=== PATIENT | female | born 1975 | race Caucasian/White ===

== ENCOUNTER 2017-09-13 18:36 | Emergency (ER) | payer OTHER ==
--- NOTE | 2017-09-13 18:45 | ED ---
Psych HPI - General Chief Complaint: Psychiatric Symptoms Stated Complaint: Mental health Time Seen by Provider: 09/13/17 18:38 Source: patient, EMS, RN notes reviewed Mode of arrival: EMS - History of Present Illness Initial Comments: This is a 42-year-old female who presents to the emergency department with suicide attempt. Patient was transported to the emergency department via EMS. Patient admits to taking 5-6 50 mg tablets of Seroquel at 6 PM this evening. She admits to drinking a half pint of vodka. Patient states that she has been living with her parents. They have a rule that patient is to not drink any alcohol. Patient drank today and they found out. They confronted patient and told her that she needed to move out. Patient became very anxious and angry and attempted to commit suicide. She was found by her father and he called EMS. Patient admits to cutting bilateral forearms with a serrated knife. She does admit to a history of depression and anxiety. Denies any auditory or visual hallucinations. States that she occasionally smokes marijuana. Denies homicidal ideation. - Related Data Home Medications Medication Instructions Recorded Confirmed ARIPiprazole [Abilify] 5 mg PO DAILY 09/13/17 09/13/17 Methylphenidate HCl [Ritalin LA] 30 mg PO DAILY 09/13/17 09/13/17 QUEtiapine [SEROquel] 50 mg PO HS 09/13/17 09/13/17 SUMAtriptan SUCCINATE [Imitrex] 100 mg PO DAILY PRN 09/13/17 09/13/17 Vortioxetine Hydrobromide 20 mg PO DAILY 09/13/17 09/13/17 [Trintellix] hydrOXYzine PAMOATE 50 mg PO HS 09/13/17 09/13/17 Allergies Allergy/AdvReac Type Severity Reaction Status Date / Time No Known Allergies Allergy Verified 09/13/17 19:23 Review of Systems ROS Statement: Those systems with pertinent positive or pertinent negative responses have been documented in the HPI. ROS Other: All systems not noted in ROS Statement are negative. Past Medical History Past Medical History: GERD/Reflux Additional Past Medical History / Comment(s): abdominal pain/blood in stool. migraines History of Any Multi-Drug Resistant Organisms: None Reported Past Surgical History: Cholecystectomy, Orthopedic Surgery Additional Past Surgical History / Comment(s): hand surg., bankart procedure left shoulder. Colonoscopy/EGD completed on 08/30/[address] Randolph secondary to recent blood in stool and bloody emesis x1. Past Anesthesia/Blood Transfusion Reactions: No Reported Reaction Past Psychological History: ADD/ADHD, Depression Smoking Status: Current every day smoker Past Alcohol Use History: Occasional Past Drug Use History: Marijuana - Past Family History Father Family Medical History: Cancer Additional Family Medical History / Comment(s): Esophageal cancer General Exam - General Exam Comments Initial Comments: General: Awake and alert, well-developed; in no apparent distress. HEENT: Head atraumatic, normocephalic. Pupils are equal, round and reactive to light. Extraocular movements intact. Oropharynx moist without erythema or exudate. Neck: Supple. Normal ROM. Cardiovascular: Regular rate and rhythm. No murmurs, rubs or gallops. Chest symmetrical. Respiratory: Lungs clear to auscultation bilaterally. No wheezes, rales or rhonchi. Normal respiratory effort with no use of accessory muscles. Abdomen: Soft, non-tender, non-distended. No rigidity, rebound or guarding. Normal bowel sounds in all 4 quadrants. Musculoskeletal: Normal ROM, no tenderness, drink 5/5 bilateral upper and lower extremities. Ambulating normally. Sensation is intact. Radial pulses are 2+ equal and palpable bilaterally. Skin: [place], warm and dry. Multiple superficial longitudinal lacerations running along bilateral forearms. There is a laceration on the left forearm that becomes deeper in the middle. This deeper area is approximately 4 cm in length. No active bleeding. Neurological: Alert and oriented x3. CN II-XII grossly intact. Speech is fluent and answers are appropriate. No focal neuro deficits. Psychiatric: Patient anxious and tearful. Repeatedly stating, "I can't believe I did this." Limitations: no limitations Course Vital Signs 09/13/17 09/14/17 09/14/17 18:38 03:26 05:49 Temperature 98 F 97.5 F L 97.8 F Pulse Rate 109 H 86 84 Respiratory 18 16 16 Rate Blood Pressure 140/78 95/54 109/57 O2 Sat by Pulse 97 97 98 Oximetry Procedures - Laceration Laceration #1 Consent Obtained: verbal consent Indication: laceration Site: upper extremity (left ventral forearm ) Size (cm): 4 Description: linear Depth: simple, single layer Anesthetic Used: lidocaine 1% Anesthesia Technique: local infiltration Amount (mls): 3 Pre-repair: wound explored, irrigated extensively, deep structures intact Type of Sutures: nylon Size of Sutures: 4-0 Number of Sutures: 6 Technique: simple, interrupted Patient Tolerated Procedure: well, no complications Medical Decision Making - Medical Decision Making This is a 42-year-old female who presents to the emergency department with chief complaint of a suicide attempt. Patient took a half pint of vodka earlier today and admits to taking 5-650 mg tablets of Seroquel. She has self- inflicted superficial lacerations to bilateral forearms. 4 Steri-Strips were placed to lacerations on the right forearm. 6 sutures and 6 Steri-Strips were placed to the lacerations on the left forearm. Patient tolerated procedure well without complication. Poison control was contacted and they recommended basic labs as well as checking a magnesium and repeat EKG. CBC and CMP are unremarkable. Magnesium is within normal limits. Initial EKG revealed normal sinus rhythm. Repeat EKG revealed normal sinus rhythm with sinus arrhythmia. Patient's vital signs have been stable and she is in no acute distress. Pending transfer to a psychiatric facility at this time. - Lab Data Result diagrams: 09/13/17 18:54 09/13/17 18:54 Lab Results 09/13/17 09/13/17 09/13/17 Range/Units 18:54 18:54 18:54 WBC 3.8 (3.8-10.6) k/uL RBC 4.70 (3.80-5.40) m/uL Hgb 13.7 (11.4-16.0) gm/dL Hct 40.9 (34.0-46.0) % MCV 87.0 (80.0-100.0) fL MCH 29.2 (25.0-35.0) pg MCHC 33.6 (31.0-37.0) g/dL RDW 13.3 (11.5-15.5) % Plt Count 266 (150-450) k/uL Neutrophils % 42 % Lymphocytes % 42 % Monocytes % 7 % Eosinophils % 5 % Basophils % 1 % Neutrophils # 1.6 (1.3-7.7) k/uL Lymphocytes # 1.6 (1.0-4.8) k/uL Monocytes # 0.3 (0-1.0) k/uL Eosinophils # 0.2 (0-0.7) k/uL Basophils # 0.1 (0-0.2) k/uL Sodium 147 H (137-145) mmol/L Potassium 4.4 (3.5-5.1) mmol/L Chloride 110 H (98-107) mmol/L Carbon Dioxide 20 L (22-30) mmol/L Anion Gap 17 mmol/L BUN 17 (7-17) mg/dL Creatinine 0.80 (0.52-1.04) mg/dL Est GFR (CKD-EPI)AfAm >90 (>60 ml/min/1.73 sqM) Est GFR (CKD-EPI)NonAf >90 (>60 ml/min/1.73 sqM) Glucose 102 H (74-99) mg/dL Calcium 9.0 (8.4-10.2) mg/dL Magnesium 1.7 (1.6-2.3) mg/dL Total Bilirubin 0.2 (0.2-1.3) mg/dL AST 25 (14-36) U/L ALT 31 (9-52) U/L Alkaline Phosphatase 52 (38-126) U/L Total Protein 7.1 (6.3-8.2) g/dL Albumin 4.5 (3.5-5.0) g/dL Urine Color Urine Appearance (Clear) Urine pH (5.0-8.0) Ur Specific Sandy (1.001-1.035) Urine Protein (Negative) Urine Glucose (UA) (Negative) Urine Ketones (Negative) Urine Blood (Negative) Urine Nitrite (Negative) Urine Bilirubin (Negative) Urine Urobilinogen (<2.0) mg/dL Ur Leukocyte Esterase (Negative) Urine RBC (0-5) /hpf Ur Squamous Epith Cells (0-4) /hpf Urine HCG, Qual (Not Detectd) Salicylates <1.0 mg/dL Urine Opiates Screen (NotDetected) Ur Oxycodone Screen (NotDetected) Urine Methadone Screen (NotDetected) Ur Propoxyphene Screen (NotDetected) Acetaminophen <10.0 ug/mL Ur Barbiturates Screen (NotDetected) U Tricyclic Antidepress (NotDetected) Ur Phencyclidine Scrn (NotDetected) Ur Amphetamines Screen (NotDetected) U Methamphetamines Scrn (NotDetected) U Benzodiazepines Scrn (NotDetected) Urine Cocaine Screen (NotDetected) U Marijuana (THC) Screen (NotDetected) 09/13/17 09/13/17 Range/Units 19:54 19:54 WBC (3.8-10.6) k/uL RBC (3.80-5.40) m/uL Hgb (11.4-16.0) gm/dL Hct (34.0-46.0) % MCV (80.0-100.0) fL MCH (25.0-35.0) pg MCHC (31.0-37.0) g/dL RDW (11.5-15.5) % Plt Count (150-450) k/uL Neutrophils % % Lymphocytes % % Monocytes % % Eosinophils % % Basophils % % Neutrophils # (1.3-7.7) k/uL Lymphocytes # (1.0-4.8) k/uL Monocytes # (0-1.0) k/uL Eosinophils # (0-0.7) k/uL Basophils # (0-0.2) k/uL Sodium (137-145) mmol/L Potassium (3.5-5.1) mmol/L Chloride (98-107) mmol/L Carbon Dioxide (22-30) mmol/L Anion Gap mmol/L BUN (7-17) mg/dL Creatinine (0.52-1.04) mg/dL Est GFR (CKD-EPI)AfAm (>60 ml/min/1.73 sqM) Est GFR (CKD-EPI)NonAf (>60 ml/min/1.73 sqM) Glucose (74-99) mg/dL Calcium (8.4-10.2) mg/dL Magnesium (1.6-2.3) mg/dL Total Bilirubin (0.2-1.3) mg/dL AST (14-36) U/L ALT (9-52) U/L Alkaline Phosphatase (38-126) U/L Total Protein (6.3-8.2) g/dL Albumin (3.5-5.0) g/dL Urine Color Light Yellow Urine Appearance Clear (Clear) Urine pH 5.5 (5.0-8.0) Ur Specific [place] 1.012 (1.001-1.035) Urine Protein Negative (Negative) Urine Glucose (UA) Negative (Negative) Urine Ketones Negative (Negative) Urine Blood Trace H (Negative) Urine Nitrite Negative (Negative) Urine Bilirubin Negative (Negative) Urine Urobilinogen <2.0 (<2.0) mg/dL Ur Leukocyte Esterase Negative (Negative) Urine RBC 4 (0-5) /hpf Ur Squamous Epith Cells 1 (0-4) /hpf Urine HCG, Qual Not Detected (Not Detectd) Salicylates mg/dL Urine Opiates Screen Not Detected (NotDetected) Ur Oxycodone Screen Not Detected (NotDetected) Urine Methadone Screen Not Detected (NotDetected) Ur Propoxyphene Screen Not Detected (NotDetected) Acetaminophen ug/mL Ur Barbiturates Screen Not Detected (NotDetected) U Tricyclic Antidepress Detected H (NotDetected) Ur Phencyclidine Scrn Not Detected (NotDetected) Ur Amphetamines Screen Not Detected (NotDetected) U Methamphetamines Scrn Not Detected (NotDetected) U Benzodiazepines Scrn Not Detected (NotDetected) Urine Cocaine Screen Not Detected (NotDetected) U Marijuana (THC) Screen Detected H (NotDetected) - EKG Data EKG Comments: 18:49:35. Sinus tachycardia, possible left atrial enlargement. Ventricular rate 101 bpm, OR interval 144, QRS duration 88, QT/QTC 354/459 22:59:30. Normal sinus rhythm with sinus arrhythmia. Ventricular rate 83 bpm, OR interval 132, QRS duration 90, QT/QTC 384/451. Disposition Clinical Impression: Attempted suicide Disposition: TRANSFER TO PSYCH HOSP/UNIT Condition: Stable Is patient prescribed a controlled substance at d/c from ED?: No Referrals: Daniel Graham MD [Primary Care Provider] - 1-2 days - Out of Hospital Transfer - Req. Specs Out of Hospital Transfer - Requested Specifics: Psychiatric Non-ICU
[2017-09-13] MEDS ORDERED: LIDOCAINE 1% INJ 10MG/ML (20 ML MDV) SQ ONE ×2 (19:02→19:07)
[2017-09-13 19:06] LABS: Basophils # (A) 0.1 k/uL (0-0.2); Basophils % (A) 1 %; Eosinophils # (A) 0.2 k/uL (0-0.7); Eosinophils % (A) 5 %; HCT 40.9 % (34.0-46.0); HGB 13.7 gm/dL (11.4-16.0); Lymphocytes # (A) 1.6 k/uL (1.0-4.8); Lymphocytes % (A) 42 %; MCH 29.2 pg (25.0-35.0); MCHC 33.6 g/dL (31.0-37.0); Mean Platelet Volume 6.3; Monocytes # (A) 0.3 k/uL (0-1.0); Monocytes % (A) 7 %; Neutrophils # (A) 1.6 k/uL (1.3-7.7); Neutrophils % (A) 42 %; Platelet Count 266 k/uL (150-450); RDW 13.3 % (11.5-15.5); WBC 3.8 k/uL (3.8-10.6)
[2017-09-13 19:14] LABS: ALT 31 U/L (9-52); AST 25 U/L (14-36); Acetaminophen <10.0 ug/mL; Albumin 4.5 g/dL (3.5-5.0); Alkaline Phosphatase 52 U/L (38-126); Anion Gap 17 mmol/L; Blood Urea Nitrogen 17 mg/dL (7-17); Carbon Dioxide 20 mmol/L (22-30); Chloride 110 mmol/L (98-107); Glucose 102 mg/dL (74-99); Potassium 4.4 mmol/L (3.5-5.1); Salicylate <1.0 mg/dL; Sodium 147 mmol/L (137-145); Total Bilirubin 0.2 mg/dL (0.2-1.3); Total Protein 7.1 g/dL (6.3-8.2)
[2017-09-13] MEDS ORDERED: IBUPROFEN 600 MG TAB PO STA (20:00)
[2017-09-13 20:11] LABS: Appearance,Urine Clear (Clear); Bilirubin,Urine Negative (Negative); Blood,Urine Trace (Negative); Color,Urine Light Yellow; Glucose,Urine (UA) Negative (Negative); Ketones,Urine Negative (Negative); Leukocyte Esterase,Urine Negative (Negative); Nitrite,Urine Negative (Negative); PH, Urine 5.5 (5.0-8.0); Protein,Urine Negative (Negative); RBC,Urine 4 /hpf (0-5); Specific Gravity,Urine 1.012 (1.001-1.035); Squamous Epithelial Cell,Urine 1 /hpf (0-4); Urobilinogen,Urine <2.0 mg/dL (<2.0)
[2017-09-13 20:23] LABS: Amphetamine Screen,Urine Not Detected (NotDetected); Barbiturate Screen,Urine Not Detected (NotDetected); Benzodiazepines Screen,Urine Not Detected (NotDetected); Cocaine Screen,Urine Not Detected (NotDetected); Methadone Screen, Urine Not Detected (NotDetected); Opiate Screen,Urine Not Detected (NotDetected); Oxycodone Screen, Urine Not Detected (NotDetected); Phencyclidine Screen,Urine Not Detected (NotDetected); Tricyclic Antidepressant,Urine Detected (NotDetected); Urn Cannabinoid Scrn Detected (NotDetected)
[2017-09-14 03:26] VITALS: RESP 16
[2017-09-14 05:50] VITALS: BP 109/57; PULSE 84; TEMP 97.8
== END 2017-09-14 06:33 ==
LOC: EC 18:36
DX: S51.812A Laceration without foreign body of left forearm, initial encounter (principal); S51.811A Laceration without foreign body of right forearm, initial encounter; F41.9 Anxiety disorder, unspecified; R45.4 Irritability and anger; F90.9 Attention-deficit hyperactivity disorder, unspecified type; F32.9 Major depressive disorder, single episode, unspecified; F17.200 Nicotine dependence, unspecified, uncomplicated; Z79.899 Other long term (current) drug therapy; X78.1XXA Intentional self-harm by knife, initial encounter
CPT/HCPCS: 82075; 36415; 93005; 80053; 83735; 85025; 81001; 81025; 80306; 83520 ×2; 99285; 12002; J2001

== ENCOUNTER → 2018-02-18 | Outpatient (CLI) | payer OTHER ==
[2018-02-18 11:09] LABS: Basophils % (A) 1 %; Eosinophils # (A) 0.1 k/uL (0-0.7); Eosinophils % (A) 2 %; HCT 43.4 % (34.0-46.0); HGB 14.5 gm/dL (11.4-16.0); Lymphocytes % (A) 27 %; MCH 30.4 pg (25.0-35.0); MCHC 33.3 g/dL (31.0-37.0); MCV 91.1 fL (80.0-100.0); Mean Platelet Volume 6.4; Monocytes # (A) 0.4 k/uL (0-1.0); Monocytes % (A) 11 %; Neutrophils % (A) 55 %; Platelet Count 219 k/uL (150-450); RBC 4.77 m/uL (3.80-5.40); WBC 3.5 k/uL (3.8-10.6)
[2018-02-18 16:37] LABS: Albumin 4.8 g/dL (3.80-4.90); Albumin/Globulin Ratio 2.18 (1.20-2.10); Anion Gap 12.5 mmol/L (4.00-12.00); Calcium 9.2 mg/dL (8.7-10.3); Carbon Dioxide 20.5 mmol/L (21.6-31.8); Globulin 2.2 g/dL (2.1-3.7); Potassium 3.8 mmol/L (3.5-5.5); Total Bilirubin 0.5 mg/dL (0.2-1.2)
[2018-02-18 16:47] LABS: T4, Free (Free Thyroxine) 1.3 ng/dL (0.80-1.80)
== END | disposition home or self-care (01) ==
LOC: LABWHC1 10:15
PROVIDERS: ATTEND Family Medicine
DX: G43.909 Migraine, unspecified, not intractable, without status migrainosus (principal); K85.90 Acute pancreatitis without necrosis or infection, unspecified; Z79.899 Other long term (current) drug therapy
CPT/HCPCS: 36415; 80053; 82150; 83690; 84439; 84443; 85025

== ENCOUNTER 2018-04-02 10:26 | Emergency (ER) | payer OTHER ==
[2018-04-02] MEDS ORDERED: SODIUM CHLORIDE 0.9% 1,000 ML IV STA (11:17)
[2018-04-02] MEDS ORDERED: diphenhydrAMINE 50 MG/ML 1 ML VIAL IVP STA (11:17)
[2018-04-02 11:34] LABS: Basophils % (A) 1 %; Eosinophils # (A) 0.1 k/uL (0-0.7); Eosinophils % (A) 1 %; HCT 43.8 % (34.0-46.0); HGB 14.6 gm/dL (11.4-16.0); Lymphocytes # (A) 0.5 k/uL (1.0-4.8); Lymphocytes % (A) 12 %; MCH 30.7 pg (25.0-35.0); MCHC 33.3 g/dL (31.0-37.0); Mean Platelet Volume 6.4; Monocytes # (A) 0.4 k/uL (0-1.0); Monocytes % (A) 8 %; Neutrophils # (A) 3.3 k/uL (1.3-7.7); Neutrophils % (A) 76 %; Platelet Count 255 k/uL (150-450); RBC 4.76 m/uL (3.80-5.40); RDW 13.6 % (11.5-15.5); WBC 4.4 k/uL (3.8-10.6)
[2018-04-02 11:44] LABS: ALT 36 U/L (9-52); AST 33 U/L (14-36); Albumin 4.5 g/dL (3.5-5.0); Alkaline Phosphatase 62 U/L (38-126); Anion Gap 13 mmol/L; Blood Urea Nitrogen 13 mg/dL (7-17); Calcium 9.3 mg/dL (8.4-10.2); Carbon Dioxide 20 mmol/L (22-30); Chloride 106 mmol/L (98-107); Glucose 82 mg/dL (74-99); Magnesium 1.7 mg/dL (1.6-2.3); Phosphorus 3.6 mg/dL (2.5-4.5); Potassium 3.8 mmol/L (3.5-5.1); Sodium 139 mmol/L (137-145); Total Bilirubin 0.8 mg/dL (0.2-1.3); Total Protein 7.7 g/dL (6.3-8.2)
[2018-04-02 11:46] LABS: Appearance,Urine Cloudy (Clear); Bacteria,Urine Rare /hpf; Bilirubin,Urine Negative (Negative); Blood,Urine Small (Negative); Color,Urine Yellow; Glucose,Urine (UA) Negative (Negative); Ketones,Urine 1+ (Negative); Leukocyte Esterase,Urine Trace (Negative); Mucus,Urine Rare /hpf; Nitrite,Urine Negative (Negative); PH, Urine 5.5 (5.0-8.0); Protein,Urine Trace (Negative); RBC,Urine 3 /hpf (0-5); Specific Gravity,Urine 1.015 (1.001-1.035); Squamous Epithelial Cell,Urine 9 /hpf (0-4); Urobilinogen,Urine <2.0 mg/dL (<2.0); WBC,Urine 9 /hpf (0-5)
[2018-04-02 11:52] LABS: Creatine Kinase 42 U/L (30-135)
[2018-04-02 12:05] LABS: Creatine Kinase MB 0.3 ng/mL (0.0-2.4); Troponin I <0.012 ng/mL (0.000-0.034)
--- NOTE | 2018-04-02 12:11 | XR ---
EXAMINATION TYPE: XR chest 2V DATE OF EXAM: 04/02/2018 COMPARISON: 12/21/2008 INDICATION: Weakness chest pain short of breath TECHNIQUE: Frontal and lateral views of the chest are obtained. FINDINGS: The heart size is normal. The pulmonary vasculature is normal. The lungs are clear. IMPRESSION: 1. No acute pulmonary process.
--- NOTE | 2018-04-02 12:23 | ED ---
Chest Pain HPI - General Chief Complaint: Chest Pain Stated Complaint: Chest pain/tips of fingers are numb Time Seen by Provider: 04/02/18 10:57 Source: patient, RN notes reviewed, old records reviewed Mode of arrival: ambulatory Limitations: no limitations - History of Present Illness Initial Comments: This is a 42-year-old female the ER for evaluation. Patient resents today for evaluation regards to chest pain but patient states her main complaint is spasming spasm in her face and neck, patient states he usually has some twinging in tremor in her legs and feet but just started recently with twitching of her neck which is at this point driving her crazy when she just wants to be consistent 2 views currently shaking. Patient is on antidepressant Trintililx which she has been on for years. Patient has no cardiac history - Related Data Home Medications Medication Instructions Recorded Confirmed SUMAtriptan SUCCINATE [Imitrex] 100 mg PO DAILY PRN 09/13/17 04/02/18 Vortioxetine Hydrobromide 20 mg PO DAILY 09/13/17 04/02/18 [Trintellix] Ibuprofen [Motrin Ib] 600 mg PO Q6H PRN 04/02/18 04/02/18 Allergies Allergy/AdvReac Type Severity Reaction Status Date / Time No Known Allergies Allergy Verified 04/02/18 12:22 Review of Systems ROS Statement: Those systems with pertinent positive or pertinent negative responses have been documented in the HPI. ROS Other: All systems not noted in ROS Statement are negative. Past Medical History Past Medical History: GERD/Reflux Additional Past Medical History / Comment(s): abdominal pain/blood in stool. migraines History of Any Multi-Drug Resistant Organisms: None Reported Past Surgical History: Cholecystectomy, Orthopedic Surgery Additional Past Surgical History / Comment(s): hand surg., bankart procedure left shoulder. Colonoscopy/EGD completed on 08/30/[address] Randolph secondary to recent blood in stool and bloody emesis x1. Past Anesthesia/Blood Transfusion Reactions: No Reported Reaction Past Psychological History: ADD/ADHD, Depression Smoking Status: Current every day smoker Past Alcohol Use History: Occasional Past Drug Use History: Marijuana - Past Family History Father Family Medical History: Cancer Additional Family Medical History / Comment(s): Esophageal cancer General Exam Limitations: no limitations General appearance: alert, in no apparent distress Head exam: Present: atraumatic, normocephalic, normal inspection Eye exam: Present: normal appearance, PERRL, EOMI. Absent: scleral icterus, conjunctival injection, periorbital swelling ENT exam: Present: normal exam, mucous membranes moist Neck exam: Present: normal inspection. Absent: tenderness, meningismus, lymphadenopathy Respiratory exam: Present: normal lung sounds bilaterally. Absent: respiratory distress, wheezes, rales, rhonchi, stridor Cardiovascular Exam: Present: regular rate, normal rhythm, normal heart sounds. Absent: systolic murmur, diastolic murmur, rubs, gallop, clicks GI/Abdominal exam: Present: soft, normal bowel sounds. Absent: distended, tenderness, guarding, rebound, rigid Extremities exam: Present: normal inspection, full ROM, normal capillary refill. Absent: tenderness, pedal edema, joint swelling, calf tenderness Back exam: Present: normal inspection Neurological exam: Present: alert, oriented X3, CN II-XII intact Psychiatric exam: Present: normal affect, normal mood Skin exam: Present: warm, dry, intact, normal color. Absent: rash Course Vital Signs 04/02/18 04/02/18 04/02/18 10:34 10:51 11:00 Temperature 98.0 F Pulse Rate 103 H 80 Respiratory 20 12 Rate Blood Pressure 144/84 145/85 O2 Sat by Pulse 100 97 98 Oximetry 04/02/18 04/02/18 04/02/18 11:10 11:20 11:30 Temperature Pulse Rate 84 82 73 Respiratory 20 20 19 Rate Blood Pressure 145/85 145/85 136/86 O2 Sat by Pulse 97 100 99 Oximetry 04/02/18 04/02/18 04/02/18 11:40 11:50 12:00 Temperature Pulse Rate 84 75 72 Respiratory 19 18 18 Rate Blood Pressure 138/87 138/87 138/87 O2 Sat by Pulse 99 100 98 Oximetry 04/02/18 04/02/18 04/02/18 12:10 12:20 12:30 Temperature Pulse Rate 75 77 84 Respiratory 13 7 L 12 Rate Blood Pressure O2 Sat by Pulse 100 99 100 Oximetry 04/02/18 12:40 Temperature Pulse Rate 85 Respiratory 12 Rate Blood Pressure 135/92 O2 Sat by Pulse 100 Oximetry - Reevaluation(s) Reevaluation #1: 04/02/18 12:23 Medical record is reviewed and noncontributory Reevaluation #2: 04/02/18 13:12 Patient does have improvement in symptoms currently, did spit 2002 with patient regarding symptoms possible causes, questions are answered Chest Pain MDM - MDM 42 female the ER for evaluation of involuntary shaking Haitian and twinging, tremor or lower extremities. Patient did improve here with Benadryl, unsure of his medication side effect from contacts patient's electrodes otherwise negative. Patient has no current chest pain, we will discharge home to continue follow-up with family care as directed Disposition Clinical Impression: Atypical chest pain, Muscle spasm Disposition: HOME SELF-CARE Condition: Good Instructions: Muscle Spasm (ED) Is patient prescribed a controlled substance at d/c from ED?: No Referrals: Daniel Graham MD [Primary Care Provider] - 1-2 days
[2018-04-02 13:48] VITALS: BP 132/86; PULSE 86; RESP 18; TEMP 97.4
== END 2018-04-02 13:48 | disposition home or self-care (01) ==
LOC: EC 10:26
DX: M62.838 Other muscle spasm (principal); R07.89 Other chest pain; R25.1 Tremor, unspecified; F32.9 Major depressive disorder, single episode, unspecified; F17.200 Nicotine dependence, unspecified, uncomplicated; Z79.899 Other long term (current) drug therapy
CPT/HCPCS: 36415; 93005; 80053; 82550; 82553; 83735; 84100; 84484; 85025; 81001; 87086; 71046; 99285; 96374; 96361 ×2; J1200; 87077; 87186

== ENCOUNTER → 2018-08-03 | Outpatient (CLI) | payer OTHER ==
--- NOTE | 2018-08-03 08:29 | MR ---
EXAMINATION TYPE: MR brain/cspine wo DATE OF EXAM: 08/03/2018 COMPARISON: MRI of the cervical spine dated 11/21/2015 HISTORY: Tremor, Cervical spondylosis TECHNIQUE: Multiplanar, multisequence images of the brain and cervical spine were acquired without intravenous c ontrast. Diffusion weighted imaging was performed. Motion artifact is seen on the images as the may ent has known tremors. FINDINGS: Brain: Diffusion weighted images demonstrate no evidence of a recent infarct or other diffusion abnor mality. There is no extra-axial fluid collection or significant white matter signal abnormality othe r than very subtle periventricular white matter change surrounding the left temporal horn of the late ral ventricle. The ventricular system and cisternal spaces are normal in size and appearance. The b rain volume is age appropriate. There is an incidentally noted 9 mm pineal gland cyst abutting without significant impression on the superior tectum. Cerebral aqueduct is patent. Otherwise the midline structures demonstrate normal mor phology. No absent swallow tail sign is seen to suggest supranuclear palsy. In this patient with trem ors evaluation of the absent swallow tail sign is difficult to evaluate without SWI images. The crani ocervical junction appears within normal limits. The left vertebral artery is diminutive with dominan ce of the right vertebral artery. Major intracranial flow voids are maintained. The dural venous sinu ses appear patent. There is a congenitally diminutive right maxillary sinus with complete opacificati on. Scant mucosal thickening is seen within the ethmoid sinuses. Remaining paranasal sinuses and mast oid air cells are well aerated. Cervical spine: Cervical spine vertebral bodies maintain normal vertebral body height and alignment. Small Schmorl's node deformity is seen of the superior endplate of C7. Multilevel disc desiccation is present. Cervical cord appears unremarkable in signal. Bone marrow signal is within normal limits. H eterogeneity with a few subcentimeter hyperintense thyroid nodules again appreciated. C2-C3: There is uncovertebral hypertrophy that creates mild bilateral neural foraminal narrowing with out spinal canal stenosis. C3-C4: There is a right eccentric disc bulge and minimal uncovertebral hypertrophy without significan t spinal canal stenosis nor neural foraminal narrowing. C4-C5: There is minimal uncovertebral hypertrophy without significant spinal canal stenosis or neural foraminal narrowing. C5-C6: There is mild uncovertebral hypertrophy creating minimal left neural foraminal narrowing. Righ t neural foramen and spinal canal patent. Broad-based disc bulges also seen. C6-C7: Small broad-based disc bulge is present without spinal canal stenosis nor neural foraminal jen rowing. C7-T1: No significant disc disease, spinal canal stenosis nor neural foraminal narrowing. IMPRESSION: 1. Very minimal nonspecific periventricular white matter change surrounding the left temporal horn, w hich is nondilated. 2. In this patient with tremors evaluation for Parkinson's disease is limited without SWI sequence to evaluate for the absent swallow tail sign. If there is concern for Parkinson's disease Carlin scan coul d be performed. No MR evidence of supranuclear palsy (although tremors rare in PSP). 3. Mild multilevel degenerative disc disease of the cervical spine without focal disc herniation or s sofi canal stenosis. Degenerative disc disease has slightly progressed from the prior exam in 2016. 4. Hypoplastic and entirely opacified right maxillary sinus and scant mucosal thickening in the ethmo id sinuses. 5. Incidentally noted 9 mm pineal gland cyst without narrowing of the cerebral aqueduct.
== END | disposition home or self-care (01) ==
LOC: RADMRIMAIN 06:13
PROVIDERS: ATTEND Neurological Surgery
DX: M50.10 Cervical disc disorder with radiculopathy, unspecified cervical region (principal); R90.89 Other abnormal findings on diagnostic imaging of central nervous system; R25.1 Tremor, unspecified
CPT/HCPCS: 70551; 72141

== ENCOUNTER 2018-09-06 07:22 | Observation (INO) | payer OTHER ==
[2018-09-06] MEDS ORDERED: SODIUM CHLORIDE 0.9% 2,000 ML IV STA (07:49)
[2018-09-06] MEDS ORDERED: ONDANSETRON 4 MG/2 ML VIAL IVP STA (07:49)
[2018-09-06] MEDS: SODIUM CHLORIDE 0.9% 1,000 ML IV STA ×2 (07:57→13:11)
--- NOTE | 2018-09-06 07:58 | ED ---
Nausea/Vomiting/Diarrhea HPI <Kobe Frye - Last Filed: 09/06/18 10:38> - General Source: patient, RN notes reviewed, old records reviewed Mode of arrival: ambulatory Limitations: no limitations <Emily Wolf - Last Filed: 09/06/18 10:46> - General Chief complaint: Nausea/Vomiting/Diarrhea Stated complaint: nausea, vomiting Time Seen by Provider: 09/06/18 07:46 - History of Present Illness Initial comments: Patient is a 43-year-old female presents today with complaints of nausea and vomiting since last Wednesday. Patient reports that she does feel sternal last week. She states that her abdomen feels crampy. She denies any localized area of abdominal pain. She did have a small bowel movement a few days ago. Patient states that she's had a symptoms once before when she has ketosis. Surgical history includes cholecystectomy. (Emily Wolf) - Related Data Home Medications Medication Instructions Recorded Confirmed Vortioxetine Hydrobromide 20 mg PO DAILY 09/13/17 09/06/18 [Trintellix] Methylphenidate HCl 30 mg PO DAILY 09/06/18 09/06/18 [Methylphenidate HCl LA] Allergies Allergy/AdvReac Type Severity Reaction Status Date / Time No Known Allergies Allergy Verified 09/06/18 07:40 Review of Systems ROS Other: All systems not noted in ROS Statement are negative. <Kobe Frye - Last Filed: 09/06/18 10:38> ROS Other: All systems not noted in ROS Statement are negative. <Emily Wolf - Last Filed: 09/06/18 10:46> ROS Statement: Those systems with pertinent positive or pertinent negative responses have been documented in the HPI. Past Medical History Past Medical History: GERD/Reflux Additional Past Medical History / Comment(s): migraines History of Any Multi-Drug Resistant Organisms: None Reported Past Surgical History: Cholecystectomy, Orthopedic Surgery Additional Past Surgical History / Comment(s): hand surg., bankart procedure left shoulder, left ulnar nerve surgery Past Anesthesia/Blood Transfusion Reactions: No Reported Reaction Past Psychological History: ADD/ADHD, Depression Smoking Status: Current every day smoker Past Alcohol Use History: Occasional Past Drug Use History: Marijuana - Past Family History Father Family Medical History: Cancer Additional Family Medical History / Comment(s): Esophageal cancer <Emily Wolf - Last Filed: 09/06/18 10:46> General Exam Limitations: no limitations General appearance: alert, in no apparent distress Head exam: Present: atraumatic, normocephalic, normal inspection Eye exam: Present: normal appearance, PERRL, EOMI. Absent: scleral icterus, conjunctival injection, periorbital swelling ENT exam: Present: normal exam, mucous membranes moist Neck exam: Present: normal inspection. Absent: tenderness, meningismus, lymphadenopathy Respiratory exam: Present: normal lung sounds bilaterally. Absent: respiratory distress, wheezes, rales, rhonchi, stridor Cardiovascular Exam: Present: regular rate, normal rhythm, normal heart sounds. Absent: systolic murmur, diastolic murmur, rubs, gallop, clicks GI/Abdominal exam: Present: soft, normal bowel sounds. Absent: distended, tenderness, guarding, rebound, rigid Extremities exam: Present: normal inspection, full ROM, normal capillary refill. Absent: tenderness, pedal edema, joint swelling, calf tenderness Back exam: Present: normal inspection Neurological exam: Present: alert, oriented X3, CN II-XII intact Psychiatric exam: Present: normal affect, normal mood Skin exam: Present: warm, dry, intact, normal color. Absent: rash <Emily Wolf - Last Filed: 09/06/18 10:46> - General Exam Comments Initial Comments: Pleasant 43-year-old female. Alert and oriented 3. No significant distress. (Emily Wolf) Course Vital Signs 09/06/18 09/06/18 09/06/18 07:26 08:40 09:34 Temperature 97.0 F L Pulse Rate 115 H 84 92 Respiratory 18 18 Rate Blood Pressure 142/95 139/84 148/87 O2 Sat by Pulse 97 98 100 Oximetry Medical Decision Making - Lab Data Result diagrams: 09/06/18 07:50 09/06/18 07:50 <Kobe Frye - Last Filed: 09/06/18 10:38> - Lab Data Result diagrams: 09/06/18 07:50 09/06/18 07:50 - Radiology Data Radiology results: report reviewed <Emily Wolf - Last Filed: 09/06/18 10:46> - Medical Decision Making Chart reviewed. Case was discussed with Dr. Graham who will admit his patient for observation. Case was also discussed with practitioner Maryann. Reports reviewed. (Kobe Frye) Patient is a 43-year-old female presents emergency room today with one week of nausea and vomiting. She's had a bowel movement a few days ago. Patient states she was showing feels weak and tired. Blood work was reviewed. The Patient was started on 2 L bolus. She has no significant abdominal tenderness. Patient does have hypokalemia, potassium 2.8. She is given oral 40 mg of K-Dur and tolerated this could still continues to complain of some nausea. She's had no further vomiting episode. She was given 1 dose of IV potassium. Patient's acetone was positive concern for metabolic acidosis related to his nausea and vomiting. Patient's case with Dr. Frye from discussed case with Dr. Graham. Patient was admitted for observation for IV hydration and hypokalemia. All questions answered return parameters were discussed. (Emily Wolf) - Lab Data Lab Results 09/06/18 09/06/18 09/06/18 Range/Units 07:50 07:50 09:34 WBC 5.5 (3.8-10.6) k/uL RBC 5.33 (3.80-5.40) m/uL Hgb 15.5 (11.4-16.0) gm/dL Hct 45.5 (34.0-46.0) % MCV 85.4 (80.0-100.0) fL MCH 29.2 (25.0-35.0) pg MCHC 34.2 (31.0-37.0) g/dL RDW 15.2 (11.5-15.5) % Plt Count 312 (150-450) k/uL Neutrophils % 65 % Lymphocytes % 22 % Monocytes % 7 % Eosinophils % 3 % Basophils % 1 % Neutrophils # 3.5 (1.3-7.7) k/uL Lymphocytes # 1.2 (1.0-4.8) k/uL Monocytes # 0.4 (0-1.0) k/uL Eosinophils # 0.2 (0-0.7) k/uL Basophils # 0.0 (0-0.2) k/uL Sodium 136 L (137-145) mmol/L Potassium 2.8 L (3.5-5.1) mmol/L Chloride 100 (98-107) mmol/L Carbon Dioxide 17 L (22-30) mmol/L Anion Gap 19 mmol/L BUN 16 (7-17) mg/dL Creatinine 0.90 (0.52-1.04) mg/dL Est GFR (CKD-EPI)AfAm 90 (>60 ml/min/1.73 sqM) Est GFR (CKD-EPI)NonAf 78 (>60 ml/min/1.73 sqM) Glucose 173 H (74-99) mg/dL Calcium 10.5 H (8.4-10.2) mg/dL Total Bilirubin 2.1 H (0.2-1.3) mg/dL AST 38 H (14-36) U/L ALT 31 (9-52) U/L Alkaline Phosphatase 76 (38-126) U/L Total Protein 8.7 H (6.3-8.2) g/dL Albumin 5.3 H (3.5-5.0) g/dL Amylase 66 (30-110) U/L Lipase 219 (23-300) U/L Urine Color Light Yellow Urine Appearance Clear (Clear) Urine pH 6.0 (5.0-8.0) Ur Specific [place] 1.006 (1.001-1.035) Urine Protein Trace H (Negative) Urine Glucose (UA) Negative (Negative) Urine Ketones 1+ H (Negative) Urine Blood Trace H (Negative) Urine Nitrite Negative (Negative) Urine Bilirubin Negative (Negative) Urine Urobilinogen <2.0 (<2.0) mg/dL Ur Leukocyte Esterase Negative (Negative) Urine RBC 1 (0-5) /hpf Urine WBC <1 (0-5) /hpf Ur Squamous Epith Cells <1 (0-4) /hpf Urine Bacteria Rare H (None) /hpf Urine Mucus Rare H (None) /hpf Acetone, Qual Positive (Negative) - Radiology Data Nonobstructive bowel gas pattern noted. (Emily Wolf) Disposition <Kobe Frye - Last Filed: 09/06/18 10:38> Is patient prescribed a controlled substance at d/c from ED?: No Time of Disposition: 10:46 <Emily Wolf - Last Filed: 09/06/18 10:46> Clinical Impression: Dehydration, Nausea & vomiting, Metabolic acidosis, Hypokalemia Disposition: ADMITTED IP TO THIS HOSP Condition: Stable Referrals: Daniel Graham MD [Primary Care Provider] - 1-2 days
[2018-09-06 08:09] LABS: Basophils % (A) 1 %; Eosinophils # (A) 0.2 k/uL (0-0.7); Eosinophils % (A) 3 %; HCT 45.5 % (34.0-46.0); HGB 15.5 gm/dL (11.4-16.0); Lymphocytes # (A) 1.2 k/uL (1.0-4.8); Lymphocytes % (A) 22 %; MCH 29.2 pg (25.0-35.0); MCHC 34.2 g/dL (31.0-37.0); MCV 85.4 fL (80.0-100.0); Mean Platelet Volume 6.9; Monocytes # (A) 0.4 k/uL (0-1.0); Monocytes % (A) 7 %; Neutrophils # (A) 3.5 k/uL (1.3-7.7); Neutrophils % (A) 65 %; Platelet Count 312 k/uL (150-450); RBC 5.33 m/uL (3.80-5.40); RDW 15.2 % (11.5-15.5); WBC 5.5 k/uL (3.8-10.6)
--- NOTE | 2018-09-06 08:20 | XR ---
EXAMINATION TYPE: XR KUB DATE OF EXAM: 09/06/2018 8:11 AM CLINICAL HISTORY: Abdominal pain TECHNIQUE: Single upright image of the abdomen is obtained. COMPARISON: 01/07/2016. FINDINGS: Scattered gas is seen in non-distended small bowel loops. Gas and fecal material is seen in non-distended colon. There is no pneumoperitoneum or abnormal calcification appreciated. The lung ba ses are clear and the osseous structures are intact. Spina bifida/congenital nonunion of the posterio r elements of L5 and likely of S1 are again noted IMPRESSION: Nonobstructive bowel gas pattern.
[2018-09-06 08:23] LABS: ALT 31 U/L (9-52); AST 38 U/L (14-36); African American GFR (CKD) 90 (>60 ml/min/1.73 sqM); Albumin 5.3 g/dL (3.5-5.0); Alkaline Phosphatase 76 U/L (38-126); Amylase 66 U/L (30-110); Anion Gap 19 mmol/L; Blood Urea Nitrogen 16 mg/dL (7-17); Calcium 10.5 mg/dL (8.4-10.2); Carbon Dioxide 17 mmol/L (22-30); Chloride 100 mmol/L (98-107); Glucose 173 mg/dL (74-99); Lipase 219 U/L (23-300); Potassium 2.8 mmol/L (3.5-5.1); Sodium 136 mmol/L (137-145); Total Bilirubin 2.1 mg/dL (0.2-1.3); Total Protein 8.7 g/dL (6.3-8.2)
[2018-09-06] MEDS ORDERED: POTASSIUM CHLORIDE ER 20 MEQ TAB.ER PO STA (08:31)
[2018-09-06] MEDS ORDERED: POTASSIUM CHLORIDE 10 MEQ in WATER FOR INJECTION 1 100ML.BAG IVPB STA (08:56)
[2018-09-06 09:52] LABS: Appearance,Urine Clear (Clear); Bacteria,Urine Rare /hpf; Bilirubin,Urine Negative (Negative); Blood,Urine Trace (Negative); Color,Urine Light Yellow; Glucose,Urine (UA) Negative (Negative); Ketones,Urine 1+ (Negative); Leukocyte Esterase,Urine Negative (Negative); Mucus,Urine Rare /hpf; Nitrite,Urine Negative (Negative); Protein,Urine Trace (Negative); RBC,Urine 1 /hpf (0-5); Specific Gravity,Urine 1.006 (1.001-1.035); Squamous Epithelial Cell,Urine <1 /hpf (0-4); Urobilinogen,Urine <2.0 mg/dL (<2.0); WBC,Urine <1 /hpf (0-5)
[2018-09-06] MEDS ORDERED: ACETAMINOPHEN TAB 325 MG TAB PO PRN (10:47)
[2018-09-06] MEDS ORDERED: ONDANSETRON 4 MG/2 ML VIAL IVP PRN (10:47)
[2018-09-06] MEDS ORDERED: NALOXONE 0.4 MG/ML 1 ML VIAL IV PRN (10:47)
[2018-09-06] MEDS ORDERED: MORPHINE SULFATE 4 MG/ML SYRINGE IV PRN (10:47)
[2018-09-06] MEDS ORDERED: KETOROLAC 30 MG/ML 1 ML VIAL IVP PRN (10:47)
[2018-09-06] MEDS ORDERED: IBUPROFEN 400 MG TAB PO PRN (10:47)
[2018-09-06] MEDS ORDERED: THIAMINE 100 MG/ML 2 ML VIAL IM STA (12:19)
[2018-09-06] MEDS ORDERED: LORazepam 2 MG/ML INJ IV PRN ×2 (12:19)
[2018-09-06] MEDS: SODIUM CHLORIDE 0.9% 1,000 ML IV SCH ×2 (13:11→19:44)
[2018-09-06] MEDS: NICOTINE 21MG/24HR PATCH TRANSDERM SCH (13:13)
[2018-09-06] MEDS: LORazepam 2 MG/ML INJ IV PRN ×3 (13:13→19:54)
[2018-09-06] MEDS: THIAMINE 100 MG TAB PO SCH (17:47)
[2018-09-07] MEDS: LORazepam 2 MG/ML INJ IV PRN ×3 (01:28→15:56)
[2018-09-07] MEDS: THIAMINE 100 MG TAB PO SCH ×2 (08:05→17:35)
[2018-09-07 08:11] VITALS: BP 121/73; PULSE 102; RESP 18; TEMP 98.4
[2018-09-07] MEDS ORDERED: METHYLPHENIDATE HCL 30 MG PO SCH (09:00)
[2018-09-07] MEDS ORDERED: PANTOPRAZOLE 40 MG/10 ML VIAL IV SCH (09:00)
[2018-09-07 09:49] LABS: African American GFR (CKD) >90 (>60 ml/min/1.73 sqM); Anion Gap 9 mmol/L; Blood Urea Nitrogen 8 mg/dL (7-17); Calcium 8.9 mg/dL (8.4-10.2); Carbon Dioxide 23 mmol/L (22-30); Chloride 106 mmol/L (98-107); Glucose 104 mg/dL (74-99); Potassium 3.3 mmol/L (3.5-5.1); Sodium 138 mmol/L (137-145)
[2018-09-07] MEDS: SODIUM CHLORIDE 0.9% 1,000 ML IV SCH (10:25)
[2018-09-07] MEDS: NICOTINE 21MG/24HR PATCH TRANSDERM SCH (10:25)
[2018-09-07] MEDS: POTASSIUM CHLORIDE 10 MEQ in WATER FOR INJECTION 1 100ML.BAG IVPB SCH ×2 (10:47→12:31)
[2018-09-07] MEDS ORDERED: BISACODYL 10 MG SUPP RECTAL STA (14:31)
--- NOTE | 2018-09-07 17:03 | P.HPIM ---
History of Present Illness H&P Date: 09/07/18 Chief Complaint: Nausea, vomiting This is a 43-year-old female presented to the ER with complaints of generalized weakness, nausea vomiting for nearly a week. Denies localized abdominal pain. Denies diarrhea ,Positive bowel movement a couple days ago. Denies chest pain, palpitations or increased shortness of breath. Denies lightheadedness dizziness or focal deficits. Denies fever or chills. Afebrile,VSS with mild tachycardia on admission-subsided. Potassium 2.8 received supplements, up to 3.3 receiving additional supplements. UA negative. Received IV fluids. Nausea and vomiting have subsided. Acetone positive. KUB reportedly nonobstructive bowel gas pattern. Review of Systems ROS Statement: Those systems with pertinent positive or pertinent negative responses have been documented in the HPI. ROS Other: All systems not noted in ROS Statement are negative. Past Medical History Past Medical History: GERD/Reflux Additional Past Medical History / Comment(s): migraines,nodules on thyroid History of Any Multi-Drug Resistant Organisms: None Reported Past Surgical History: Cholecystectomy, Orthopedic Surgery Additional Past Surgical History / Comment(s): hand surg., bankart procedure left shoulder, left ulnar nerve surgery Past Anesthesia/Blood Transfusion Reactions: No Reported Reaction Past Psychological History: ADD/ADHD, Depression Smoking Status: Current every day smoker Past Alcohol Use History: Occasional Additional Past Alcohol Use History / Comment(s): 1 pack per week for 20 yrs. Past Drug Use History: Marijuana Additional Drug Use History / Comment(s): occasional to help with headache. Patient suffers from migraines- patient states "last alcoholic drink 3 months ago" - Past Family History Father Family Medical History: Cancer Additional Family Medical History / Comment(s): Esophageal cancer Mother Family Medical History: Thyroid Disorder Additional Family Medical History / Comment(s): depression Medications and Allergies Home Medications Medication Instructions Recorded Confirmed Type Vortioxetine Hydrobromide 20 mg PO DAILY 09/13/17 09/06/18 History [Trintellix] Methylphenidate HCl 30 mg PO DAILY 09/06/18 09/06/18 History [Methylphenidate HCl LA] Famotidine [Pepcid] 20 mg PO BID #60 tablet 09/07/18 Rx Folic Acid 1 mg PO DAILY #30 tablet 09/07/18 Rx Multivitamins, Thera [Multivitamin 1 tab PO DAILY #30 tablet 09/07/18 Rx (formulary)] Nicotine 21Mg/24Hr Patch [Habitrol] 1 patch TRANSDERM DAILY #30 patch 09/07/18 Rx Thiamine [Vitamin B-1] 100 mg PO DAILY #30 tablet 09/07/18 Rx Allergies Allergy/AdvReac Type Severity Reaction Status Date / Time No Known Allergies Allergy Verified 09/06/18 07:40 Physical Exam Vitals: Vital Signs Temp Pulse Pulse Resp BP BP Pulse Ox 09/07/18 07:15 98.4 F 102 H 18 121/73 98 09/07/18 04:48 98.6 F 104 H 15 148/82 97 09/07/18 03:34 16 09/06/18 23:53 58 L 16 09/06/18 23:31 98.0 F 56 L 15 110/68 97 09/06/18 19:59 80 16 09/06/18 19:06 98.4 F 80 16 99/62 97 09/06/18 16:00 98.9 F 89 16 118/83 99 09/06/18 11:34 98.1 F 87 16 135/89 99 09/06/18 11:30 87 16 09/06/18 10:30 98.0 F 84 18 124/83 98 09/06/18 09:34 92 148/87 100 09/06/18 08:40 84 18 139/84 98 Intake and Output 09/06/18 09/07/18 09/07/18 22:59 06:59 14:59 Intake Total 240 640 Balance 240 640 Intake: Oral 240 240 Other 400 Other: Voiding Method Toilet Toilet # Voids 1 1 PHYSICAL EXAM: VITAL SIGNS: As above GENERAL: Sitting up in bed, no acute distress HEENT: Conjunctivae normal. eyes normal. Oral mucosa moist NECK: No JVD. No thyroid enlargement. No LNs CARDIOVASCULAR: S1, S2 regular.. No murmur RESPIRATION: Breath sounds diminished in the bases. No rhonchi or crackles. No bronchial breathing. ABDOMEN: Soft, nontender . No guarding. no masses palpable. No ascites, No hepatosplenomegaly.Bowel sounds heard. LEGS: No edema. no swelling PSYCHIATRY: Alert and oriented & O-3, mood and affect normal. NERVOUS SYSTEM: Cranial N 2-12 grossly normal. Moves all 4 limbs. Diffuse weakness No focal deficits. Strength and sensation grossly intact.. Skin: no lesions, no rash Joints: No active swelling. No inflammation. Lymphatic system. No LN neck axilla or groin. Results CBC & Chem 7: 09/06/18 07:50 09/07/18 09:16 Labs: Abnormal Lab Results - Last 24 Hours (Table) 09/06/18 Range/Units 09:34 Urine Protein Trace H (Negative) Urine Ketones 1+ H (Negative) Urine Blood Trace H (Negative) Urine Bacteria Rare H (None) /hpf Urine Mucus Rare H (None) /hpf Thrombosis Risk Factor Assmnt - Choose All That Apply Each Factor Represents 1 point: Age 41-60 years Thrombosis Risk Factor Assessment Total Risk Factor Score: 1 Thrombosis Risk Factor Assessment Level: Low Risk Assessment and Plan Assessment: -Dehydration, possible metabolic acidosis secondary to Nausea, vomiting - hypokalemia related to the above Plan: Continue on current medication regime ,monitoring and symptomatic treatment. All meds have been reviewed and resumed. Potassium supplements in progress. Dulcolax suppository 1. Symptoms have subsided. Patient is pending discharged home in a stable condition with guarded prognosis. The impression and plan of care has been dictated as directed. : I performed a history and examination of this patient, discussed the same with the dictator. I agree with the dictator's note ,documented as a scribe. Any additional findings or plans will be noted.
--- NOTE | 2018-09-07 17:04 | P.DS ---
Providers Date of admission: 09/06/18 10:39 Expected date of discharge: 09/07/18 Attending physician: Daniel Graham Consults: Please refer to my H&P for final diagnoses and specifics. Primary care physician: Daniel Graham Patient Condition at Discharge: Stable Plan - Discharge Summary Discharge Rx Participant: No New Discharge Prescriptions: New Folic Acid 1 mg PO DAILY #30 tablet Nicotine 21Mg/24Hr Patch [Habitrol] 1 patch TRANSDERM DAILY #30 patch Multivitamins, Thera [Multivitamin (formulary)] 1 tab PO DAILY #30 tablet Thiamine [Vitamin B-1] 100 mg PO DAILY #30 tablet Famotidine [Pepcid] 20 mg PO BID #60 tablet Continue Vortioxetine Hydrobromide [Trintellix] 20 mg PO DAILY Methylphenidate HCl [Methylphenidate HCl LA] 30 mg PO DAILY Discharge Medication List Vortioxetine Hydrobromide [Trintellix] 20 mg PO DAILY 09/13/17 [History] Methylphenidate HCl [Methylphenidate HCl LA] 30 mg PO DAILY 09/06/18 [History] Famotidine [Pepcid] 20 mg PO BID #60 tablet 09/07/18 [Rx] Folic Acid 1 mg PO DAILY #30 tablet 09/07/18 [Rx] Multivitamins, Thera [Multivitamin (formulary)] 1 tab PO DAILY #30 tablet 09/07/18 [Rx] Nicotine 21Mg/24Hr Patch [Habitrol] 1 patch TRANSDERM DAILY #30 patch 09/07/18 [Rx] Thiamine [Vitamin B-1] 100 mg PO DAILY #30 tablet 09/07/18 [Rx] Follow up Appointment(s)/Referral(s): Daniel Graham MD [Primary Care Provider] - 1 Week Ambulatory/Diagnostic Orders: Basic Metabolic Panel [LAB.AMB] Time Frame: 3 Days, Location: None Selected
[2018-09-08] MEDS ORDERED: PANTOPRAZOLE 40 MG TABLET PO SCH (07:30)
== END 2018-09-07 17:50 | disposition home or self-care (01) ==
LOC: EC 07:22 → 1SOBS 10:39
PROVIDERS: ADMIT Family Medicine; ATTEND Family Medicine
DX: E86.0 Dehydration (principal); E87.6 Hypokalemia; R11.2 Nausea with vomiting, unspecified; K21.9 Gastro-esophageal reflux disease without esophagitis; G43.909 Migraine, unspecified, not intractable, without status migrainosus; F90.9 Attention-deficit hyperactivity disorder, unspecified type; F32.9 Major depressive disorder, single episode, unspecified; E04.1 Nontoxic single thyroid nodule; F17.210 Nicotine dependence, cigarettes, uncomplicated; Z81.8 Family history of other mental and behavioral disorders; Z90.49 Acquired absence of other specified parts of digestive tract; Z79.899 Other long term (current) drug therapy; Z80.0 Family history of malignant neoplasm of digestive organs; Z83.49 Family history of other endocrine, nutritional and metabolic diseases
CPT/HCPCS: 96361 ×3; 96366; 96372; 96375 ×3; 96376 ×2; 96365; 99285; 36415; 80053; 80048; 82150; 82009; 83690; 85025; 81001; 74018; G0378 ×2; J2060 ×2; J3411; J2405; J3480 ×2; C9113

== ENCOUNTER → 2020-01-08 | Outpatient (CLI) | payer OTHER ==
--- NOTE | 2020-01-08 22:25 | MR ---
EXAMINATION TYPE: MR shoulder LT wo con DATE OF EXAM: 01/08/2020 COMPARISON: Plain film 10/10/2019 HISTORY: Left shoulder pain TECHNIQUE: Multiplanar, multisequence imaging of the left shoulder is performed without contrast. FINDINGS: There is deformity of the humeral head possibly due to patient's history of trauma Rotator Cuff: Markedly attenuated. Infraspinatus tendon shows fluid signal at its expected insertion level. Acromioclavicular Joint: Some hypertrophic changes present Glenohumeral Joint: Intact Labrum: The labrum appears grossly intact given limitation of non-arthrogram study. Biceps Tendon: The long head of biceps is in normal location within bicipital groove. Bone marrow signal: Probable geode formation present within the anterior aspect of the humerus, findi ngs could be related to prior dislocation Other: Some fluid signal present along the musculotendinous junction of subscapularis. IMPRESSION: Findings suggest at least a partial tear the rotator cuff, insertion of the infraspinatus tendon. Def ormity the humeral head may be related to remote trauma.
== END | disposition home or self-care (01) ==
LOC: RADMRIMAIN 18:43
PROVIDERS: ATTEND Orthopaedic Surgery
DX: M21.822 Other specified acquired deformities of left upper arm (principal)

== ENCOUNTER 2020-10-16 21:53 | Inpatient (IN) | payer MEDICAID, OTHER ==
[2020-10-16 23:22] LABS: Amphetamine Screen,Urine Not Detected (NotDetected); Barbiturate Screen,Urine Not Detected (NotDetected); Benzodiazepines Screen,Urine Not Detected (NotDetected); Cocaine Screen,Urine Not Detected (NotDetected); Methadone Screen, Urine Not Detected (NotDetected); Opiate Screen,Urine Not Detected (NotDetected); Oxycodone Screen, Urine Not Detected (NotDetected); Phencyclidine Screen,Urine Not Detected (NotDetected); Tricyclic Antidepressant,Urine Not Detected (NotDetected); Urn Cannabinoid Scrn Detected (NotDetected)
[2020-10-16] MEDS ORDERED: LORazepam 1 MG TAB PO STA (23:28)
--- NOTE | 2020-10-17 00:19 | ED ---
Psych HPI - General Source: patient Mode of arrival: ambulatory <Randy Awan - Last Filed: 10/17/20 00:17> <Shadi Jimenez - Last Filed: 12/23/20 07:18> - General Chief Complaint: Psychiatric Symptoms Stated Complaint: mental health Time Seen by Provider: 10/16/20 22:37 - History of Present Illness Initial Comments: 45-year-old female presents to emergency department for psychiatric evaluation. Patient reports history of alcohol abuse but was clean for several years. States for the past 2 weeks, she has relapsed and has been drinking on daily basis. States she has also been experiencing thoughts of suicide without any plans. She denies any homicidal plans or ideations. She denies any other complaints. (Randy Awan) - Related Data Home Medications Medication Instructions Recorded Confirmed SUMAtriptan succinate [Imitrex] 50 mg PO DAILY PRN 10/17/20 10/17/20 Previous Rx's Medication Instructions Recorded Doxepin [SINEquan] 100 mg PO HS 30 Days cap 10/22/20 Naltrexone HCl [Revia] 50 mg PO DAILY 30 Days tab 10/22/20 Nicotine 14Mg/24Hr Patch [Habitrol] 1 patch TRANSDERM DAILY 30 Days 10/22/20 patch chlordiazePOXIDE HCl [Librium] 25 mg PO BID 3 Days cap 10/22/20 Allergies Allergy/AdvReac Type Severity Reaction Status Date / Time No Known Allergies Allergy Verified 10/17/20 09:12 Review of Systems ROS Other: All systems not noted in ROS Statement are negative. <Randy Awan - Last Filed: 10/17/20 00:17> ROS Other: All systems not noted in ROS Statement are negative. <Shadi Jimenez - Last Filed: 12/23/20 07:18> ROS Statement: Those systems with pertinent positive or pertinent negative responses have been documented in the HPI. Past Medical History Past Medical History: GERD/Reflux Additional Past Medical History / Comment(s): migraines,nodules on thyroid History of Any Multi-Drug Resistant Organisms: None Reported Past Surgical History: Cholecystectomy, Orthopedic Surgery Additional Past Surgical History / Comment(s): hand surg., bankart procedure left shoulder, left ulnar nerve surgery Past Anesthesia/Blood Transfusion Reactions: No Reported Reaction Past Psychological History: ADD/ADHD, Depression Smoking Status: Vaper Past Alcohol Use History: Occasional Past Drug Use History: Marijuana - Past Family History Father Family Medical History: Cancer Additional Family Medical History / Comment(s): Esophageal cancer Mother Family Medical History: Thyroid Disorder Additional Family Medical History / Comment(s): depression <Randy Awan - Last Filed: 10/17/20 00:17> General Exam Limitations: no limitations General appearance: alert, in no apparent distress, anxious Head exam: Present: atraumatic, normocephalic, normal inspection Eye exam: Present: normal appearance, PERRL, EOMI Pupils: Present: normal accommodation ENT exam: Present: normal exam, normal oropharynx, mucous membranes moist Neck exam: Present: normal inspection, full ROM Respiratory exam: Present: normal lung sounds bilaterally. Absent: respiratory distress Cardiovascular Exam: Present: regular rate, normal rhythm, normal heart sounds. Absent: systolic murmur Extremities exam: Present: normal inspection, full ROM Back exam: Present: normal inspection, full ROM Neurological exam: Present: alert, oriented X3 Psychiatric exam: Present: normal affect, normal mood, anxious Skin exam: Present: warm, dry, intact, normal color <Randy Awan - Last Filed: 10/17/20 00:17> Course Vital Signs 10/16/20 10/17/20 22:08 01:02 Temperature 98.0 F 98 F Pulse Rate 101 H 86 Respiratory 18 18 Rate Blood Pressure 134/82 145/78 O2 Sat by Pulse 97 96 Oximetry Medical Decision Making <Randy Awan - Last Filed: 10/17/20 00:17> - Lab Data Result diagrams: 10/17/20 09:34 10/17/20 09:34 <Shadi Jimenez - Last Filed: 12/23/20 07:18> - Medical Decision Making 45-year-old female presents to emergency department for psychiatric evaluation. On physical examination, patient is nervous and has thoughts of suicide but no plans. Patient was given Ativan. Urine drug screen positive for marijuana. EPS evaluation pending At this time, patient care signed off to (Randy Awan) I saw this patient in conjunction with the physician assistant construction superintendent. I performed independent history and physical exam. Agree with case management. Patient continues to have suicidal ideation and will be admitted to the behavioral health unit. (Shadi Jimenez) - Lab Data Lab Results 10/16/20 Range/Units 22:47 Urine Opiates Screen Not Detected (NotDetected) Ur Oxycodone Screen Not Detected (NotDetected) Urine Methadone Screen Not Detected (NotDetected) Ur Propoxyphene Screen Not Detected (NotDetected) Ur Barbiturates Screen Not Detected (NotDetected) U Tricyclic Antidepress Not Detected (NotDetected) Ur Phencyclidine Scrn Not Detected (NotDetected) Ur Amphetamines Screen Not Detected (NotDetected) U Methamphetamines Scrn Not Detected (NotDetected) U Benzodiazepines Scrn Not Detected (NotDetected) Urine Cocaine Screen Not Detected (NotDetected) U Marijuana (THC) Screen Detected H (NotDetected) Disposition <Randy Awan - Last Filed: 10/17/20 00:17> <Shadi Jimenez - Last Filed: 12/23/20 07:18> Clinical Impression: Mood disorder, Suicidal ideation Disposition: ADMITTED IP TO THIS HOSP Condition: Stable
[2020-10-17] MEDS ORDERED: MAG HYDROX/AL HYDROX/SIMETH 30 ML CUP PO PRN (07:19)
[2020-10-17] MEDS ORDERED: ACETAMINOPHEN TAB 325 MG TAB PO PRN (07:19)
[2020-10-17] MEDS ORDERED: LORazepam 1 MG TAB PO PRN (07:19)
[2020-10-17] MEDS ORDERED: MAGNESIUM HYDROXIDE 2,400 MG/10 ML CUP PO PRN (07:19)
[2020-10-17] MEDS ORDERED: HALOPERIDOL LACTATE 5 MG/ML 1 ML VIAL IM PRN (07:28)
[2020-10-17] MEDS ORDERED: haloperidoL 5 MG TAB PO PRN (07:28)
[2020-10-17] MEDS ORDERED: ESCITALOPRAM 20 MG TAB PO SCH (09:00)
[2020-10-17] MEDS: NICOTINE 14MG/24HR PATCH TRANSDERM SCH (09:22)
[2020-10-17] MEDS: IBUPROFEN 800 MG TAB PO PRN (09:23)
[2020-10-17] MEDS ORDERED: SUMAtriptan succinate 50 MG TAB PO PRN (09:42)
[2020-10-17 09:56] LABS: Basophils # (A) 0.1 k/uL (0-0.2); Basophils % (A) 1 %; Eosinophils # (A) 0.1 k/uL (0-0.7); Eosinophils % (A) 2 %; HCT 41.9 % (34.0-46.0); HGB 14.1 gm/dL (11.4-16.0); Lymphocytes # (A) 1.1 k/uL (1.0-4.8); Lymphocytes % (A) 20 %; MCH 30.1 pg (25.0-35.0); MCHC 33.5 g/dL (31.0-37.0); MCV 89.9 fL (80.0-100.0); Mean Platelet Volume 6.7; Monocytes # (A) 0.3 k/uL (0-1.0); Monocytes % (A) 5 %; Neutrophils % (A) 70 %; Platelet Count 295 k/uL (150-450); RBC 4.66 m/uL (3.80-5.40); RDW 14.2 % (11.5-15.5); WBC 5.7 k/uL (3.8-10.6)
[2020-10-17 10:06] LABS: ALT 18 U/L (4-34); AST 31 U/L (14-36); African American GFR (CKD) >90 (>60 ml/min/1.73 sqM); Albumin 4.6 g/dL (3.5-5.0); Alkaline Phosphatase 91 U/L (38-126); Anion Gap 12 mmol/L; Blood Urea Nitrogen 12 mg/dL (7-17); Carbon Dioxide 24 mmol/L (22-30); Chloride 101 mmol/L (98-107); Glucose 113 mg/dL (74-99); Non-African American GFR(CKD) >90 (>60 ml/min/1.73 sqM); Potassium 3.8 mmol/L (3.5-5.1); Sodium 137 mmol/L (137-145); Total Bilirubin 0.9 mg/dL (0.2-1.3); Total Protein 7.4 g/dL (6.3-8.2)
[2020-10-17] MEDS ORDERED: NALTREXONE HCL 50 MG TAB PO STA (10:52)
--- NOTE | 2020-10-17 11:56 | P.HP ---
Psychiatric H&P - . H&P Date: 10/17/20 History & Physical: Allergies Allergy/AdvReac Type Severity Reaction Status Date / Time No Known Allergies Allergy Verified 10/17/20 09:12 Vital Signs Temp 97.6 F 10/17/20 08:39 Pulse 95 10/17/20 08:39 Resp 18 10/17/20 08:39 BP 141/79 10/17/20 08:39 Pulse Ox 99 10/17/20 08:39 Intake & Output 10/16/20 10/17/20 10/17/20 18:59 06:59 18:59 Weight 61.235 kg 60.1 kg Laboratory Last Values WBC 5.7 k/uL (3.8-10.6) 10/17/20 09:34 RBC 4.66 m/uL (3.80-5.40) 10/17/20 09:34 Hgb 14.1 gm/dL (11.4-16.0) 10/17/20 09:34 Hct 41.9 % (34.0-46.0) 10/17/20 09:34 MCV 89.9 fL (80.0-100.0) 10/17/20 09:34 MCH 30.1 pg (25.0-35.0) 10/17/20 09:34 MCHC 33.5 g/dL (31.0-37.0) 10/17/20 09:34 RDW 14.2 % (11.5-15.5) 10/17/20 09:34 Plt Count 295 k/uL (150-450) 10/17/20 09:34 MPV 6.7 10/17/20 09:34 Neutrophils % 70 % 10/17/20 09:34 Lymphocytes % 20 % 10/17/20 09:34 Monocytes % 5 % 10/17/20 09:34 Eosinophils % 2 % 10/17/20 09:34 Basophils % 1 % 10/17/20 09:34 Neutrophils # 4.0 k/uL (1.3-7.7) 10/17/20 09:34 Lymphocytes # 1.1 k/uL (1.0-4.8) 10/17/20 09:34 Monocytes # 0.3 k/uL (0-1.0) 10/17/20 09:34 Eosinophils # 0.1 k/uL (0-0.7) 10/17/20 09:34 Basophils # 0.1 k/uL (0-0.2) 10/17/20 09:34 Sodium 137 mmol/L (137-145) 10/17/20 09:34 Potassium 3.8 mmol/L (3.5-5.1) 10/17/20 09:34 Chloride 101 mmol/L (98-107) 10/17/20 09:34 Carbon Dioxide 24 mmol/L (22-30) 10/17/20 09:34 Anion Gap 12 mmol/L 10/17/20 09:34 BUN 12 mg/dL (7-17) 10/17/20 09:34 Creatinine 0.59 mg/dL (0.52-1.04) 10/17/20 09:34 Est GFR (CKD-EPI)AfAm >90 (>60 ml/min/1.73 sqM) 10/17/20 09:34 Est GFR (CKD-EPI)NonAf >90 (>60 ml/min/1.73 sqM) 10/17/20 09:34 Glucose 113 mg/dL (74-99) H 10/17/20 09:34 Calcium 9.0 mg/dL (8.4-10.2) 10/17/20 09:34 Total Bilirubin 0.9 mg/dL (0.2-1.3) 10/17/20 09:34 AST 31 U/L (14-36) 10/17/20 09:34 ALT 18 U/L (4-34) 10/17/20 09:34 Alkaline Phosphatase 91 U/L (38-126) 10/17/20 09:34 Total Protein 7.4 g/dL (6.3-8.2) 10/17/20 09:34 Albumin 4.6 g/dL (3.5-5.0) 10/17/20 09:34 TSH 0.796 mIU/L (0.465-4.680) 10/17/20 09:34 Urine Opiates Screen Not Detected (NotDetected) 10/16/20 22:47 Ur Oxycodone Screen Not Detected (NotDetected) 10/16/20 22:47 Urine Methadone Screen Not Detected (NotDetected) 10/16/20 22:47 Ur Propoxyphene Screen Not Detected (NotDetected) 10/16/20 22:47 Ur Barbiturates Screen Not Detected (NotDetected) 10/16/20 22:47 U Tricyclic Antidepress Not Detected (NotDetected) 10/16/20 22:47 Ur Phencyclidine Scrn Not Detected (NotDetected) 10/16/20 22:47 Ur Amphetamines Screen Not Detected (NotDetected) 10/16/20 22:47 U Methamphetamines Scrn Not Detected (NotDetected) 10/16/20 22:47 U Benzodiazepines Scrn Not Detected (NotDetected) 10/16/20 22:47 Urine Cocaine Screen Not Detected (NotDetected) 10/16/20 22:47 U Marijuana (THC) Screen Detected (NotDetected) H 10/16/20 22:47 10/17/20 11:56 IDENTIFYING DATA: Patient is a single, unemployed, 45-year-old male who was admitted for depression with suicidal ideation the context of heavy alcohol use. HPI: Patient presented to the hospital on 10/17/20, brought in by her own volition to be evaluated for suicidal ideation without a plan in the context of a recent relapse into alcohol use. The patient reports that she has been sober for 2 years prior to relapsing 3 weeks ago. She reports that since her relapse, she has been drinking a pint of vodka daily. 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 She does endorse elevated symptoms of depression including low motivation, anhedonia (not kayaking, gardening, or enjoying other activities which used to), low energy, difficulty sleeping, and suicidal ideation. She does report one prior attempt at suicide in 2018 by cutting her wrist. She is currently denying any homicidal ideation, intention, or plan. She reports no significant symptoms of bipolar disorder. She denies any increased goal- directed activity, excessive energy, or mood lability. She does endorse elevated anxiety. She reports that she is constantly about her life, her lack of a job, lack of license, and often feels overwhelmed with all the inconveniences her life. She reports feeling nauseous, wound up, and experie nced racing thoughts. In regards to psychotic symptoms, the patient denies any significant history of auditory or visual hallucinations. She reports no history of paranoia or other delusions. The patient does endorse significant history of substance abuse. She reports that she quit tobacco 3-1/2 months ago. She reports using marijuana at about the occasionally to help her with her insomnia. She denies any illicit drug use. The patient's drug of choice is alcohol. She reported that she began drinking alcohol at the age of 28 but began drinking heavily at the age of 30 after losing employment at that time. She reports that she was drinking heavily from 30 - 43 years of age and then was incarcerated for a DUI and remained sober for 2 years. She reports that she goes to Alcoholics Anonymous once a week and has a sponsor. Furthermore, the patient did attend alcohol abuse rehabilitation once before at [place] in 2014. In regards to withdrawal symptoms, the patient reports a history of tremors and nausea but denies any seizures or delirium tremens. PAST PSYCHIATRIC HISTORY: Patient states that she has been previously diagnosed with depression, anxiety, ADHD, and alcohol use disorder. She recalls previous to being prescribed and [place], Zoloft, Prozac, Lexapro, trazodone, Depakote, and Remeron. She reports one prior psychiatric hospitalization in 2018 at [facility] [place]. She reports that she follows with [facility] in [place] and was scheduled for an appointment for counseling at [facility] today. She reports one prior attempt at suicide in 2018 by cutting her wrist. PMH: ALLERGIES: NO KNOWN DRUG ALLERGIES CHEMICAL DEPENDENCY HISTORY: as per HPI FAMILY PSYCHIATRIC/SUBSTANCE USE HISTORY: The patient reports that her maternal grandmother and her mother have been diagnosed with depression. She reports that her maternal aunt has been diagnosed with bipolar disorder and has also attempted suicide but not completed in the past. She reports multiple uncles and her brother has also suffered from alcohol use disorder. SOCIAL HISTORY: Patient was born and raised in [place], [place]. She is single, never , and has no children. She currently lives with her mother and stepfather. She completed community college. 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 She does report a history of legal problems including 2 DUIs, one in 2011 and the other in 2019. She reports that she was incarcerated for 108 days in 2019. She reports no current legal problems. She reports no history. She denies any significant history of trauma. MENTAL STATUS EXAM: General Appearance: Patient appears to be stated age is alert, directable, and attempts to cooperate. Patient appears to have fair hygiene and grooming. Behavior: Patient is seated without any agitated behavior. Psychomotor activity slightly elevated. Eye contact is appropriate. Speech: Patient's speech is fluent and nonpressured. Spontaneous, with normal rate, tone, and volume. Mood/Affect: Patient reports their mood is depressed, affect is congruent and tearful. Suicidality/Homicidality: The patient does admit to suicidal ideation but denies any homicidal ideation, intention, and/or plan. Perceptions: Patient denies any visual hallucinations and denies any auditory hallucinations Though content/process: There is no evidence of any delusional thought content and thought process is linear and goal-directed. Memory and concentration: AOX3, grossly intact for the purposes of this session. Can spell "WORLD" backwards Judgment and insight: Fair STRENGTHS/WEAKNESSES: Strength is that patient is motivated for treatment, has a supportive family, and stable housing. Weakness is that patient has a significant alcohol addiction. INTELLECT: average IMPRESSIONS: Major depressive disorder, recurrent, severe Alcohol use disorder Cannabis use PLAN: -Patient is admitted under voluntary status to [facility] for stabilization of psychiatric symptoms and safety. Patient signed adult voluntary form and medication consent and is placed in patient's chart. -Medications : Will start patient on Librium 20 mg by mouth 3 times a day for alcohol withdrawal Start doxepin 50 mg by mouth at bedtime for depression/anxiety/insomnia Start naltrexone 50 mg by mouth daily for alcohol use disorder Discontinue Lexapro and Remeron -Ativan and Haldol PRN for agitation/aggression -Started thiamine, MVM for etoh use -CIWA protocol with Ativan PRN for ETOH withdrawal -Patient was counselled on substance abuse and desired to cut back on use -Patient was informed of the risks, benefits and side effects of the medication and patient verbally consented to taking the medications. Patient signed med consent form and was placed in chart. -Internal Medicine consult to perform medical evaluation and physical. -SW on board for discharge planning. Encourage patient to participate in groups to work on coping skills.
[2020-10-17] MEDS: LORazepam 1 MG TAB PO SCH ×3 (13:08→21:33)
--- NOTE | 2020-10-17 15:19 | P.CONS ---
History of Present Illness - Reason for Consult Consult date: 10/17/20 Medical management, medical H&P Requesting physician: Richy aWlker - Chief Complaint Alcohol intoxication - History of Present Illness This is a 45-year-old female with past medical history of depression, alcohol abuse-reports sobriety 2 years, gastroesophageal reflux disease, migraines, ADD/ADHD, former smoker, marijuana use, presented to the ER with complaints of binge drinking, depression, suicidal thoughts without a plan, voluntarily seeking psychiatry evaluation/assistance. Reports for the last 2 weeks she has been drinking a bottle of vodka daily, depression worsened and she sought help. Patient lives with her parents. Urine drug screen positive for marijuana. Received Ativan in the ER, evaluated by EPS admitted to mental health unit. Afebrile, normal WBC vital signs stable. Review of Systems ROS Statement: Those systems with pertinent positive or pertinent negative responses have been documented in the HPI. ROS Other: All systems not noted in ROS Statement are negative. Past Medical History Past Medical History: GERD/Reflux Additional Past Medical History / Comment(s): migraines,nodules on thyroid History of Any Multi-Drug Resistant Organisms: None Reported Past Surgical History: Cholecystectomy, Orthopedic Surgery Additional Past Surgical History / Comment(s): hand surg., bankart procedure left shoulder, left ulnar nerve surgery Past Anesthesia/Blood Transfusion Reactions: No Reported Reaction Past Psychological History: ADD/ADHD, Depression Smoking Status: Former smoker Past Alcohol Use History: Occasional Additional Past Alcohol Use History / Comment(s): 1 pack per week for 20 yrs. Past Drug Use History: Marijuana Additional Drug Use History / Comment(s): occasional to help with headache. Patient suffers from migraines- patient states "last alcoholic drink 3 months ago" - Past Family History Father Family Medical History: Cancer Additional Family Medical History / Comment(s): Esophageal cancer Mother Family Medical History: Thyroid Disorder Additional Family Medical History / Comment(s): depression Medications and Allergies Home Medications Medication Instructions Recorded Confirmed Type Escitalopram Oxalate [Lexapro] 20 mg PO DAILY 10/17/20 10/17/20 History SUMAtriptan succinate [Imitrex] 50 mg PO DAILY PRN 10/17/20 10/17/20 History traZODone HCL 100 mg PO HS PRN 10/17/20 10/17/20 History Allergies Allergy/AdvReac Type Severity Reaction Status Date / Time No Known Allergies Allergy Verified 10/17/20 09:12 Physical Exam Vitals: Vital Signs Temp Pulse Pulse Resp BP BP Pulse Ox 10/17/20 08:39 97.6 F 95 18 141/79 99 10/17/20 01:02 98 F 86 18 145/78 96 10/16/20 22:08 98.0 F 101 H 18 134/82 97 Intake and Output 10/16/20 10/17/20 10/17/20 22:59 06:59 14:59 Other: Weight 61.235 kg 60.1 kg PHYSICAL EXAM: VITAL SIGNS: As above GENERAL: Sitting up in chair, no acute distress HEENT: Conjunctivae normal. eyes normal. Oral mucosa moist NECK: No JVD. No thyroid enlargement. No LNs CARDIOVASCULAR: S1, S2 regular.No murmur RESPIRATION: Breath sounds diminished in the bases. No rhonchi or crackles. No bronchial breathing. ABDOMEN: Soft, nontender . No guarding. no masses palpable. No ascites, No hepatosplenomegaly.Bowel sounds heard. LEGS: No edema. no swelling PSYCHIATRY: Alert and oriented & O-3, mood and affect normal. NERVOUS SYSTEM: Cranial N 2-12 grossly normal. Moves all 4 limbs. No focal deficits. Strength and sensation grossly intact.. Skin: Warm and dry, no rash Lymphatic system. No LN neck axilla. Results CBC & Chem 7: 10/17/20 09:34 10/17/20 09:34 Labs: Abnormal Lab Results - Last 24 Hours (Table) 10/16/20 10/17/20 Range/Units 22:47 09:34 Glucose 113 H (74-99) mg/dL U Marijuana (THC) Screen Detected H (NotDetected) Assessment and Plan Assessment: Depression, suicidal ideation Alcohol dependence, ADHD, ADD History of pancreatitis Gastroesophageal reflux disease History of Nicotine dependence, quit 3-1/2 months ago THC use Anxiety Plan: Continue current medication regimen, monitoring and symptomatic treatment. Monitor for DTs, maintain on ativan/CIWA protocol. Nicotine patch-recently quit smoking. Thiamine, folic acid, multivitamin ordered. PPI ordered for GI prophylaxis. Patient ambulating, tolerating exertion well. Magnesium level added on. Thank you for the consult and please do not hesitate to call with any further questions or concerns. The impression and plan of care has been dictated as directed. : I performed a history and examination of this patient, discussed the same with the dictator. I agree with the dictator's note ,documented as a scribe. Any additional findings or plans will be noted.
[2020-10-17] MEDS: MULTIVITAMINS, THERA 1 EACH TAB PO SCH (15:47)
[2020-10-17] MEDS: FOLIC ACID 1 MG TAB PO SCH (15:47)
[2020-10-17] MEDS: THIAMINE 100 MG TAB PO SCH (15:47)
[2020-10-17] MEDS: PANTOPRAZOLE 40 MG TABLET PO SCH (15:47)
[2020-10-17 20:10] LABS: Hemoglobin A1C 5.2 % (4.0-6.0)
[2020-10-17 20:37] LABS: Cholesterol 265 mg/dL (0-200); LDL Cholesterol,Calculated 94.4 mg/dL (0.0-131.0)
[2020-10-17] MEDS ORDERED: DOXEPIN 25 MG CAP PO SCH (21:00)
[2020-10-17] MEDS ORDERED: MIRTAZAPINE 15 MG TAB PO SCH (21:00)
[2020-10-18] MEDS: LORazepam 1 MG TAB PO SCH ×4 (08:10→21:02)
[2020-10-18] MEDS: PANTOPRAZOLE 40 MG TABLET PO SCH (08:10)
[2020-10-18] MEDS: NALTREXONE HCL 50 MG TAB PO SCH (08:10)
[2020-10-18] MEDS: MULTIVITAMINS, THERA 1 EACH TAB PO SCH (08:10)
[2020-10-18] MEDS: FOLIC ACID 1 MG TAB PO SCH (08:10)
[2020-10-18] MEDS: THIAMINE 100 MG TAB PO SCH (08:10)
[2020-10-18] MEDS: NICOTINE 14MG/24HR PATCH TRANSDERM SCH ×2 (08:12→13:42)
[2020-10-18] MEDS ORDERED: ESCITALOPRAM 20 MG TAB PO SCH (09:00)
[2020-10-18] MEDS: IBUPROFEN 800 MG TAB PO PRN (09:06)
--- NOTE | 2020-10-18 10:26 | P.PN ---
Progress Note - Text Progress Note Date: 10/18/20 Interval History: Patient was seen resting in bed and was directable and agreeable to speak with service writer in the office. The patient was that she is feeling "shaky this morning." She is otherwise reporting mild improvement in regards to her depression. She does report elevated anxiety. She is currently denying any suicidal or homicidal ideation, intention, and/or plan. She is denying any auditory or visual hallucinations. She reports no paranoia or other delusions. She denies any issues with her appetite. She reports that she has some difficulty with sleep. She states that she would wake up every 2-3 hours. She states that she will try to attend groups today. She has been adherent with her medication is not reporting any significant side effects at this time. Mental Status Exam: General Appearance: Patient appears to be stated age is alert, directable, and cooperative. Behavior: Patient is calmly seated without any agitated behavior. Eye contact is appropriate. Psychomotor activity slightly elevated. The patient is displaying upper extremity tremors. Speech: Patient's speech is fluent and nonpressured. Spontaneous, normal rate, tone, and volume. Mood/Affect: Mood is improving mildly, affect is congruent and constricted. Suicidality/Homicidality: Patient denies having any suicidal or homicidal ideation intent or plan. Perceptions: Patient denies any visual hallucinations and denies any auditory hallucinations Though content/process: There is no evidence of any delusional thought content and thought process is linear and goal-directed. Memory and concentration: AOX3, grossly intact for the purposes of this session Judgment and insight: Improving mildly Vital Signs Temp 96.7 F L 10/18/20 06:52 Pulse 85 10/18/20 06:52 Resp 14 10/18/20 06:52 BP 119/67 10/18/20 06:52 Pulse Ox 99 10/17/20 08:39 Intake & Output 10/17/20 10/18/20 10/18/20 18:59 06:59 18:59 Weight 60.1 kg Laboratory Results - Last 24 Hours 10/17/20 10/17/20 09:34 09:[address] Glu mg/dL 103 Hemoglobin A1c 5.2 Triglycerides 73.0 Cholesterol 265 H LDL Cholesterol, Calc 94.4 VLDL Cholesterol, Calc 14.60 HDL Cholesterol 156.0 H Cholesterol/HDL Ratio 1.70 TSH 0.796 Assessment Major depressive disorder, recurrent, severe Alcohol use disorder Cannabis use Plan: -Patient continues to meet criteria for inpatient psychiatric admission for symptom stabilization and safety. Patient has signed adult voluntary form and medication consent and was placed in patient's chart. -Medications: Continue Librium 20 mg by mouth 3 times a day for alcohol withdrawal - taper over the weekend pending patient's CIWA score Increase doxepin to 75 mg by mouth at bedtime for management of depression/anxiety/insomnia. We will gradually titrate this medication with Wellbutrin to 100 mg at bedtime. Continue naltrexone 50 mg by mouth daily for alcohol use disorder -When necessary Ativan and Haldol for agitation/aggression. -NRT - nicotine patch -SW on board for discharge planning. Encouraged the patient to participate in milieu.
[2020-10-18 12:25] VITALS: BMI 22.0
[2020-10-18] MEDS: DOXEPIN 25 MG CAP PO SCH (20:57)
[2020-10-19] MEDS: MULTIVITAMINS, THERA 1 EACH TAB PO SCH (07:59)
[2020-10-19] MEDS: PANTOPRAZOLE 40 MG TABLET PO SCH (07:59)
[2020-10-19] MEDS: NICOTINE 14MG/24HR PATCH TRANSDERM SCH (07:59)
[2020-10-19] MEDS: LORazepam 1 MG TAB PO SCH ×4 (07:59→22:30)
[2020-10-19] MEDS: NALTREXONE HCL 50 MG TAB PO SCH (07:59)
[2020-10-19] MEDS: FOLIC ACID 1 MG TAB PO SCH (07:59)
[2020-10-19] MEDS: THIAMINE 100 MG TAB PO SCH (07:59)
--- NOTE | 2020-10-19 13:12 | P.PN ---
Progress Note - Text Progress Note Date: 10/19/20 S&O: Patient was seen for follow-up examination. She has been drinking alcohol for a while became suicidal and decided to come to the hospital. She said she is having withdrawal symptoms and is on Ativan po and IM on a when necessary basis for withdrawal symptoms. She is also on doxepin 175 mg at bedtime. She said she is tired of drinking and wants to stay sober. She is on Revia to prevent alcohol craving and she was advised about.. She feels happy that she is on a medication that can take away her craving for drinking. She said she had thought of drinking only once since she came to the hospital. She denies current suicidal thoughts. This is a white ambulatory female with good hygiene. She is somewhat hyperactive and restless. She gets emotional and tearful easily. She says she cannot handle her withdrawal symptoms and was advised to ask for IM Ativan instead of by mouth for severe withdrawal symptoms. She agreed. Her speech is spontaneous relevant and goal-directed. Her mood is anxious and affect is increased in intensity. She denies current suicide and homicide thoughts, hallucinations and delusional thinking. She is well oriented with good memory concentration and general fund of knowledge. A&P: Patient continues to meet criteria for inpatient psychiatric admission for symptom stabilization and safety. Continue current medications therapy and supervision.
[2020-10-19] MEDS: LORazepam 2 MG/ML INJ IM PRN ×2 (15:02→22:26)
[2020-10-19] MEDS: IBUPROFEN 800 MG TAB PO PRN (15:40)
[2020-10-19] MEDS: DOXEPIN 25 MG CAP PO SCH (21:17)
[2020-10-19] MEDS: chlordiazePOXIDE 25 MG CAP PO SCH (21:18)
[2020-10-20] MEDS: THIAMINE 100 MG TAB PO SCH (08:00)
[2020-10-20] MEDS: NALTREXONE HCL 50 MG TAB PO SCH (08:00)
[2020-10-20] MEDS: MULTIVITAMINS, THERA 1 EACH TAB PO SCH (08:00)
[2020-10-20] MEDS: FOLIC ACID 1 MG TAB PO SCH (08:00)
[2020-10-20] MEDS: chlordiazePOXIDE 25 MG CAP PO SCH ×3 (08:00→21:31)
[2020-10-20] MEDS: PANTOPRAZOLE 40 MG TABLET PO SCH (08:00)
[2020-10-20] MEDS: LORazepam 1 MG TAB PO SCH ×4 (08:00→21:31)
[2020-10-20] MEDS: NICOTINE 14MG/24HR PATCH TRANSDERM SCH (08:00)
--- NOTE | 2020-10-20 09:42 | P.PN ---
Progress Note - Text Progress Note Date: 10/20/20 S&O: Patient was seen for a follow-up examination. She feels better today, is not shaky like she was yesterday and she said she slept well also last night. She had asked for IM Ativan instead of by mouth Ativan when necessary which had helped her a lot. She does not have any particular complaint or concern. She takes her medications, attends groups and gets along with other patients and staff members. This is a right ambulatory female with good hygiene. She is polite friendly and cooperative. She is not tremulous today like she was yesterday. Her speech is spontaneous relevant and goal-directed. Her mood is euthymic and affect is appropriate. She denies hallucinations, delusional thinking, suicidal and homicidal thoughts. She is well oriented with good memory concentration general fund of knowledge. Her insight appears to be fairly good. Her judgment also has improved. Plan: Patient continues to meet criteria for inpatient psychiatric admission for symptom stabilization and safety. Continue current medications, groups and supervision.
[2020-10-20] MEDS: IBUPROFEN 800 MG TAB PO PRN (12:03)
[2020-10-20] MEDS: DOXEPIN 25 MG CAP PO SCH (21:31)
[2020-10-20 21:34] VITALS: RESP 16
[2020-10-21 07:16] VITALS: TEMP 97.2
[2020-10-21] MEDS: PANTOPRAZOLE 40 MG TABLET PO SCH (08:25)
[2020-10-21] MEDS: THIAMINE 100 MG TAB PO SCH (08:25)
[2020-10-21] MEDS: LORazepam 1 MG TAB PO SCH ×4 (08:25→21:19)
[2020-10-21] MEDS: FOLIC ACID 1 MG TAB PO SCH (08:25)
[2020-10-21] MEDS: NICOTINE 14MG/24HR PATCH TRANSDERM SCH (08:25)
[2020-10-21] MEDS: NALTREXONE HCL 50 MG TAB PO SCH (08:25)
[2020-10-21] MEDS: chlordiazePOXIDE 25 MG CAP PO SCH ×2 (08:25→21:19)
[2020-10-21] MEDS: MULTIVITAMINS, THERA 1 EACH TAB PO SCH (08:25)
--- NOTE | 2020-10-21 11:01 | P.PN ---
Progress Note - Text Progress Note Date: 10/21/20 Interval History: Patient was seen resting in bed and was directable and agreeable to speak with fha underwriter in the office. Patient reports that she is feeling significantly better compared to last week. She does report that she has been experiencing some blurry vision and "squiggles in my vision" which she introduced to possible side effects from medication. She is otherwise not reporting any suicidal or homicidal ideation, intention, and/or plan. She is denying any auditory hallucinations. She denies any paranoia or other delusions. The patient reports that her appetite and sleep has improved significantly. She's not endorsing any significant side effects of naltrexone. She reports no alcohol cravings. The patient aborts that she is not able to return back home to her parents but instead will be staying with a fellow voodoo member upon discharge. She reports that if she was to be good for a month with this voodoo member, she would be able to return home. She continues to report elevated anxiety. Mental Status Exam: General Appearance: Patient appears to be stated age is alert, directable, and cooperative. Behavior: Patient is calmly seated without any agitated behavior. Eye contact is appropriate. Psychomotor activity appears normal. Tremor has decreased significant. Speech: Patient's speech is fluent and nonpressured. Spontaneous, normal rate, tone, and volume. Mood/Affect: Mood is improving mildly, affect is congruent and euthymic. Suicidality/Homicidality: Patient denies having any suicidal or homicidal ideation intent or plan. Perceptions: Patient denies any visual hallucinations and denies any auditory hallucinations Though content/process: There is no evidence of any delusional thought content and thought process is linear and goal-directed. Memory and concentration: AOX3, grossly intact for the purposes of this session Judgment and insight: Improving mildly Vital Signs Temp 97.2 F L 10/21/20 06:42 Pulse 114 H 10/21/20 08:25 Resp 16 10/21/20 06:42 BP 125/69 10/21/20 08:25 Pulse Ox 97 10/18/20 21:00 Assessment Major depressive disorder, recurrent, severe Alcohol use disorder Cannabis use Plan: -Patient continues to meet criteria for inpatient psychiatric admission for symptom stabilization and safety. Patient has signed adult voluntary form and medication consent and was placed in patient's chart. -Anticipate discharge tomorrow. -Medications: Decrease Librium to 25 mg by mouth twice a day from withdrawal Continue doxepin 100 mg by mouth at bedtime for management of depression/anxiety/insomnia. Continue naltrexone 50 mg by mouth daily for alcohol use disorder -When necessary Ativan and Haldol for agitation/aggression. -NRT - nicotine patch -SW on board for discharge planning. Encouraged the patient to participate in milieu.
[2020-10-21] MEDS: IBUPROFEN 800 MG TAB PO PRN (21:18)
[2020-10-21] MEDS: DOXEPIN 25 MG CAP PO SCH (21:20)
[2020-10-22] MEDS: NICOTINE 14MG/24HR PATCH TRANSDERM SCH (07:42)
[2020-10-22] MEDS: MULTIVITAMINS, THERA 1 EACH TAB PO SCH (07:43)
[2020-10-22] MEDS: chlordiazePOXIDE 25 MG CAP PO SCH (07:44)
[2020-10-22] MEDS: FOLIC ACID 1 MG TAB PO SCH (07:44)
[2020-10-22] MEDS: THIAMINE 100 MG TAB PO SCH (07:44)
[2020-10-22] MEDS: NALTREXONE HCL 50 MG TAB PO SCH (07:44)
[2020-10-22] MEDS: LORazepam 1 MG TAB PO SCH ×2 (07:44→13:46)
[2020-10-22] MEDS: PANTOPRAZOLE 40 MG TABLET PO SCH (07:44)
--- NOTE | 2020-10-22 10:52 | P.DS ---
Providers Date of admission: 10/17/20 07:04 Expected date of discharge: 10/22/20 Attending physician: Richy Walker MD Consults: 10/17/20 07:19 Consult Physician Routine Consulting Provider: Daniel Graham Consult Reason/Comments: History and physical Do you want consulting provider notified?: Yes Primary care physician: Daniel Graham - Discharge Diagnosis(es) (1) Major depressive disorder Current Visit: Yes Status: Acute Priority: High (2) Alcohol use disorder Current Visit: Yes Status: Chronic Priority: Medium (3) Cannabis use disorder, mild, abuse Current Visit: Yes Status: Chronic Priority: Medium Hospital Course: Admission HPI: Patient is a single, unemployed, 45-year-old male who was admitted for depression with suicidal ideation the context of heavy alcohol use. Patient presented to the hospital on 10/17/20, brought in by her own volition to be evaluated for suicidal ideation without a plan in the context of a recent relapse into alcohol use. The patient reports that she has been sober for 2 years prior to relapsing 3 weeks ago. She reports that since her relapse, she has been drinking a pint of vodka daily. 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 She does endorse elevated symptoms of depression including low motivation, anhedonia (not kayaking, gardening, or enjoying other activities which used to), low energy, difficulty sleeping, and suicidal ideation. She does report one prior attempt at suicide in 2018 by cutting her wrist. She is currently denying any homicidal ideation, intention, or plan. She reports no significant symptoms of bipolar disorder. She denies any increased goal- directed activity, excessive energy, or mood lability. She does endorse elevated anxiety. She reports that she is constantly about her life, her lack of a job, lack of license, and often feels overwhelmed with all the inconveniences her life. She reports feeling nauseous, wound up, and experienced racing thoughts. In regards to psychotic symptoms, the patient denies any significant history of auditory or visual hallucinations. She reports no history of paranoia or other delusions. The patient does endorse significant history of substance abuse. She reports that she quit tobacco 3-1/2 months ago. She reports using marijuana at about the occasionally to help her with her insomnia. She denies any illicit drug use. The patient's drug of choice is alcohol. She reported that she began drinking alcohol at the age of 28 but began drinking heavily at the age of 30 after losing employment at that time. She reports that she was drinking heavily from 30 - 43 years of age and then was incarcerated for a DUI and remained sober for 2 years. She reports that she goes to Alcoholics Anonymous once a week and has a sponsor. Furthermore, the patient did attend alcohol abuse rehabilitation once before at [facility] in 2014. In regards to withdrawal symptoms, the patient reports a history of tremors and nausea but denies any seizures or delirium tremens. Patient states that she has been previously diagnosed with depression, anxiety, ADHD, and alcohol use disorder. She recalls previous to being prescribed and [place], Zoloft, Prozac, Lexapro, trazodone, Depakote, and Remeron. She reports one prior psychiatric hospitalization in 2018 at [facility]. She reports that she follows with [facility] in [place] and was scheduled for an appointment for counseling at [facility] today. She reports one prior attempt at suicide in 2018 by cutting her wrist. Hospital course: Upon admission to the unit patient was initially tearful, undergoing alcohol withdrawal, and endorsing suicidal ideation. Patient was however directable and agreeable to commence treatment. Patient got along well with other patients on the unit and followed unit protocol. Patient was compliant with the medications and denied any side effects throughout hospital course. Patient was started on doxepin for management of depression/anxiety/insomnia while her Lexapro and trazodone were discontinued. The patient was also started on naltrexone for alcohol use disorder and Librium for alcohol withdrawal. The patient spoke of her stressors and engaged in both individual and milieu therapies. She is also seen by the medical team for history and physical examination. Over the course of the hospital's agent, patient gradually improved in regards to mood, future orientation, sleep, and no longer reported any suicidal ideation. On the day of discharge, the patient is not reporting any suicidal or homicidal ideation, intention, and/or plan. She denies any firearms or weapons. She reports that should be living with friends from alev[place]. She reports no auditory or visual hallucinations. She denies any paranoia or delusions. Patient was counseled length on her medications and need for regular adherence as well as appropriate follow-up. The patient does have a significant history of alcohol use disorder and was counseled on abstaining from all substances including alcohol, marijuana, and other substances. The patient was offered inpatient substance abuse rehabilitation, but opted to continue her outpatient treatment. The patient attends and has a sponsor. The patient is anxious for discharge and appears tearful during the exit interview. Despite this, the patient is future oriented, not reporting any suicidal ideation, and plans to quit alcohol. Mental status exam: General Appearance: Patient appears to be stated age is alert, pleasant, and cooperative. Patient is in no acute distress and has fair hygiene and grooming Behavior: Patient is calmly seated without any agitated behavior. Psychomotor activity is normal. Speech: Patient's speech is fluent and nonpressured. Mood/Affect: Patient reports their mood is "much better", affect is congruent but nervous and at times tearful. Suicidality/Homicidality: Patient denies having any suicidal or homicidal ideation intent or plan. Perceptions: Patient denies any auditory or visual hallucinations. Though content/process: There is no evidence of any delusional thought content and thought process is linear and goal-directed. Patient is future oriented. Memory and concentration: AOX3, grossly intact for the purposes of this session. Can spell "WORLD" backwards correctly. Judgment and insight: Improved with guarded prognosis Vital Signs Temp 97.2 F L 10/21/20 06:42 Pulse 79 10/21/20 20:00 Resp 16 10/21/20 20:00 BP 110/70 10/21/20 20:00 Pulse Ox 97 10/18/20 21:00 Impression: Major depressive disorder, recurrent, severe Alcohol use disorder Cannabis abuse Plan: -Continue with discharge today as patient has improved and stabilized psychiatrically and is not currently an imminent threat to herself and/or others. Patient will remain at chronically elevated risk for harm to self and/or others due to her prior attempt at suicide and alcohol abuse. -Continue medications: We'll discharge the patient on Librium 25 mg by mouth twice a day for 3 days Continue doxepin 100 mg by mouth at bedtime for depression/anxiety/insomnia Continue naltrexone 50 mg by mouth daily for alcohol use disorder -Patient was counseled on the need for medication compliance and appropriate follow-up at mental health and also primary care for medical issues. Patient verbalized understanding and agreed. -Social work to arrange for and conduct family meeting to ensure safety upon discharge and answer any questions/concerns. Social work also to arrange for patients follow up appointments for psychiatric care along with follow up with primary care provider. -Patient counseled on abstaining from recreational drugs and marijuana and alcohol. Was informed/educated on the adverse effects on their physical and mental health. Patient verbally agreed and understood. Patient was offered substance abuse treatment however declined at this time. -Patient was instructed to return to the hospital or seek immediate medical care if their psychiatric or medical symptoms do worsen or reoccur. -Psychoeducation and supportive therapy provided to patient. Risks and benefits of pharmacological treatment versus the risks and benefits of nontreatment weight and discussed. Informed consent discussion held. Common side effects of psychotropics discussed such as, but not limited to headache, GI disturbance, sexual dysfunction, movement disorders, sedation, and orthostatic hypotension. Life threatening and blackbox warnings of prescribed medications also discussed. Potential risks of operating a vehicle or heavy machinery discussed with patient at length. Advised on importance of compliance and a reliable and responsible manner. Patient advised to review FDA consumer labeling of all medications prior to taking. Patient verbalized understanding of potential risks, and agrees with current treatment plan. Patient advised to medically contact physician/emergency personnel if any acute changes in condition occur. Laboratory Results WBC 5.7 k/uL (3.8-10.6) 10/17/20 09:34 RBC 4.66 m/uL (3.80-5.40) 10/17/20 09:34 Hgb 14.1 gm/dL (11.4-16.0) 10/17/20 09:34 Hct 41.9 % (34.0-46.0) 10/17/20 09:34 MCV 89.9 fL (80.0-100.0) 10/17/20 09:34 MCH 30.1 pg (25.0-35.0) 10/17/20 09:34 MCHC 33.5 g/dL (31.0-37.0) 10/17/20 09:34 RDW 14.2 % (11.5-15.5) 10/17/20 09:34 Plt Count 295 k/uL (150-450) 07/15/21 09:34 MPV 6.7 10/17/20 09:34 Neutrophils % 70 % 10/17/20 09:34 Lymphocytes % 20 % 10/17/20 09:34 Monocytes % 5 % 10/17/20 09:34 Eosinophils % 2 % 10/17/20 09:34 Basophils % 1 % 10/17/20 09:34 Neutrophils # 4.0 k/uL (1.3-7.7) 10/17/20 09:34 Lymphocytes # 1.1 k/uL (1.0-4.8) 10/17/20 09:34 Monocytes # 0.3 k/uL (0-1.0) 10/17/20 09:34 Eosinophils # 0.1 k/uL (0-0.7) 10/17/20 09:34 Basophils # 0.1 k/uL (0-0.2) 10/17/20 09:34 Sodium 137 mmol/L (137-145) 10/17/20 09:34 Potassium 3.8 mmol/L (3.5-5.1) 10/17/20 09:34 Chloride 101 mmol/L (98-107) 10/17/20 09:34 Carbon Dioxide 24 mmol/L (22-30) 10/17/20 09:34 Anion Gap 12 mmol/L 10/17/20 09:34 BUN 12 mg/dL (7-17) 10/17/20 09:34 Creatinine 0.59 mg/dL (0.52-1.04) 10/17/20 09:34 Est GFR (CKD-EPI)AfAm >90 (>60 ml/min/1.73 sqM) 10/17/20 09:34 Est GFR (CKD-EPI)NonAf >90 (>60 ml/min/1.73 sqM) 10/17/20 09:34 Glucose 113 mg/dL (74-99) H 10/17/20 09:[address] Glu mg/dL 103 10/17/20 09:34 Hemoglobin A1c 5.2 % (4.0-6.0) 10/17/20 09:34 Calcium 9.0 mg/dL (8.4-10.2) 10/17/20 09:34 Magnesium 1.5 mg/dL (1.5-2.4) 10/17/20 09:34 Total Bilirubin 0.9 mg/dL (0.2-1.3) 10/17/20 09:34 AST 31 U/L (14-36) 10/17/20 09:34 ALT 18 U/L (4-34) 10/17/20 09:34 Alkaline Phosphatase 91 U/L (38-126) 10/17/20 09:34 Total Protein 7.4 g/dL (6.3-8.2) 10/17/20 09:34 Albumin 4.6 g/dL (3.5-5.0) 10/17/20 09:34 Triglycerides 73.0 mg/dL (0.0-149.0) 10/17/20 09:34 Cholesterol 265 mg/dL (0-200) H 10/17/20 09:34 LDL Cholesterol, Calc 94.4 mg/dL (0.0-131.0) 10/17/20 09:34 VLDL Cholesterol, Calc 14.60 mg/dL (5.00-40.00) 10/17/20 09:34 HDL Cholesterol 156.0 mg/dL (40.0-60.0) H 10/17/20 09:34 Cholesterol/HDL Ratio 1.70 10/17/20 09:34 TSH 0.796 mIU/L (0.465-4.680) 10/17/20 09:34 Urine Opiates Screen Not Detected (NotDetected) 10/16/20 22:47 Ur Oxycodone Screen Not Detected (NotDetected) 10/16/20 22:47 Urine Methadone Screen Not Detected (NotDetected) 10/16/20 22:47 Ur Propoxyphene Screen Not Detected (NotDetected) 10/16/20 22:47 Ur Barbiturates Screen Not Detected (NotDetected) 10/16/20 22:47 U Tricyclic Antidepress Not Detected (NotDetected) 10/16/20 22:47 Ur Phencyclidine Scrn Not Detected (NotDetected) 10/16/20 22:47 Ur Amphetamines Screen Not Detected (NotDetected) 10/16/20 22:47 U Methamphetamines Scrn Not Detected (NotDetected) 10/16/20 22:47 U Benzodiazepines Scrn Not Detected (NotDetected) 10/16/20 22:47 Urine Cocaine Screen Not Detected (NotDetected) 10/16/20 22:47 U Marijuana (THC) Screen Detected (NotDetected) H 10/16/20 22:47 Allergies Allergy/AdvReac Type Severity Reaction Status Date / Time No Known Allergies Allergy Verified 10/17/20 09:12 Patient Condition at Discharge: Stable Plan - Discharge Summary Discharge Rx Participant: Yes New Discharge Prescriptions: New Nicotine 14Mg/24Hr Patch [Habitrol] 1 patch TRANSDERM DAILY 30 Days patch Doxepin [SINEquan] 100 mg PO HS 30 Days cap chlordiazePOXIDE HCl [Librium] 25 mg PO BID 3 Days cap Naltrexone HCl [Revia] 50 mg PO DAILY 30 Days tab Continue SUMAtriptan succinate [Imitrex] 50 mg PO DAILY PRN PRN Reason: Migraine Headache Discontinued Escitalopram Oxalate [Lexapro] 20 mg PO DAILY traZODone HCL 100 mg PO HS PRN PRN Reason: Insomnia Discharge Medication List SUMAtriptan succinate [Imitrex] 50 mg PO DAILY PRN 10/17/20 [History] Doxepin [SINEquan] 100 mg PO HS 30 Days cap 10/22/20 [Rx] Naltrexone HCl [Revia] 50 mg PO DAILY 30 Days tab 10/22/20 [Rx] Nicotine 14Mg/24Hr Patch [Habitrol] 1 patch TRANSDERM DAILY 30 Days patch 10/22/20 [Rx] chlordiazePOXIDE HCl [Librium] 25 mg PO BID 3 Days cap 10/22/20 [Rx] Follow up Appointment(s)/Referral(s): Other, other [Other] - 10/24/20 2:30 pm Daniel Graham MD [Primary Care Provider] - 1-2 days Activity/Diet/Wound Care/Special Instructions: Activity and diet as tolerated. Avoid the use of street drugs and alcohol. Take all medications as prescribed. When you are in need of refills on your medications please contact your medical provider and/or outpatient psychiatrist to have this done. Please go to scheduled outpatient appointment for aftercare treatment. If symptoms return or become worse, call the crisis line at and/or go to the nearest emergency room for evaluation. Discharge Disposition: HOME SELF-CARE
[2020-10-22 13:47] VITALS: BP 146/75; PULSE 95
== END 2020-10-22 16:12 | disposition home or self-care (01) | DRG 885 ==
LOC: EC 21:53 → 3MHU 10-17 07:04
PROVIDERS: ADMIT Psychiatry & Neurology Psychiatry; ATTEND Psychiatry & Neurology Psychiatry
DX: F33.2 Major depressive disorder, recurrent severe without psychotic features (principal); F10.239 Alcohol dependence with withdrawal, unspecified; R45.851 Suicidal ideations; F12.10 Cannabis abuse, uncomplicated; F41.9 Anxiety disorder, unspecified; F90.9 Attention-deficit hyperactivity disorder, unspecified type; G43.909 Migraine, unspecified, not intractable, without status migrainosus; G47.00 Insomnia, unspecified; K21.9 Gastro-esophageal reflux disease without esophagitis; Z65.3 Problems related to other legal circumstances; Z79.899 Other long term (current) drug therapy; Z87.891 Personal history of nicotine dependence
CPT/HCPCS: 80053; 80061; 80306; 82075; 83036; 83735; 84443; 85025; 99285

== ENCOUNTER 2021-03-08 17:59 | Emergency (ER) | payer OTHER ==
[2021-03-08 18:06] VITALS: BP 128/78; PULSE 76; RESP 16; TEMP 97.9
--- NOTE | 2021-03-08 19:58 | CT ---
EXAMINATION TYPE: CT facial bones wo con, CT brain cspine wo con CT brain and C-spine without contras t DATE OF EXAM: 03/08/2021 COMPARISON: None HISTORY: fall CT DLP: 977 mGycm Automated exposure control for dose reduction was used. TECHNIQUE: CT scan of the sinuses is performed without contrast, axial images are obtained, coronal r eformatted images are also reviewed. FINDINGS: The paranasal sinuses including the frontal, ethmoid, and sphenoid sinuses bilaterally are well-aerated without abnormal opacification. Aeration of the right maxillary sinus surgical changes suspected of the medial wall. Visualized portion of mastoid air cells show no abnormal opacification. The globes are intact bilate rally. Soft tissues straight a left cheek density presumably fluid collection measuring up to 1.9 cm. There is a single focus of subcutaneous gas noted within the left cheek. Fat stranding changes are surround ing this area. There is no acute intracranial hemorrhage, mass effect, or midline shift identified. The ventricles and sulci are within normal limits in size. The globes are intact and the visualized sinuses are elias ar. Cervical spine is visualized in its entirety from C1 through upper thoracic levels and demonstrates s atisfactory alignment without evidence of acute fracture or dislocation. Prevertebral soft tissue ap pears within normal limits. The C1-C2 articulation is unremarkable. IMPRESSION: 1. Left lateral cheek subcutaneous fluid collection presumably representing hematoma without evidence for fracture. Additional streaky changes within the left lateral face likely edema sequela of prior fall. 2. There is no acute fracture or dislocation evident in the cervical spine. 3. No acute intracranial hemorrhage, mass effect, or midline shift is seen. 4. Surgical changes of the right maxillary sinus with mucosal thickening changes.
--- NOTE | 2021-03-08 23:12 | ED ---
Head Injury HPI - General Chief complaint: Head Injury Stated complaint: Fall/Facial Lac Time Seen by Provider: 03/08/21 22:39 Source: patient, RN notes reviewed, old records reviewed Mode of arrival: ambulatory Limitations: no limitations - History of Present Illness Initial comments: This is a 45-year-old female to the emergency room today. Patient presents today for evaluation regards to fall fall out of bed did hit her head left-sided paralysis significant amount of bleeding. Patient does admit to significant alcohol intoxication today. No other complaints no other injuries. MD Complaint: head injury, fall -: hour(s) Mechanism of Injury: mechanical fall Location: temporal (Left-sided) Loss of Consciousness: no Previous Trauma to this Area: No Place: home Radiation: none Severity: moderate Quality: stabbing Consistency: constant Provoking factors: none known Associated Symptoms: denies other symptoms - Related Data Home Medications Medication Instructions Recorded Confirmed SUMAtriptan succinate [Imitrex] 50 mg PO DAILY PRN 10/17/20 10/17/20 Previous Rx's Medication Instructions Recorded Doxepin [SINEquan] 100 mg PO HS 30 Days cap 10/22/20 Naltrexone HCl [Revia] 50 mg PO DAILY 30 Days tab 10/22/20 Nicotine 14Mg/24Hr Patch [Habitrol] 1 patch TRANSDERM DAILY 30 Days 10/22/20 patch chlordiazePOXIDE HCl [Librium] 25 mg PO BID 3 Days cap 10/22/20 Allergies/Adverse reactions: Allergies Allergy/AdvReac Type Severity Reaction Status Date / Time No Known Allergies Allergy Verified 03/08/21 18:06 Review of Systems ROS Statement: Those systems with pertinent positive or pertinent negative responses have been documented in the HPI. ROS Other: All systems not noted in ROS Statement are negative. Past Medical History Past Medical History: GERD/Reflux Additional Past Medical History / Comment(s): migraines,nodules on thyroid History of Any Multi-Drug Resistant Organisms: None Reported Past Surgical History: Cholecystectomy, Orthopedic Surgery Additional Past Surgical History / Comment(s): hand surg., bankart procedure left shoulder, left ulnar nerve surgery Past Anesthesia/Blood Transfusion Reactions: No Reported Reaction Past Psychological History: ADD/ADHD, Depression Smoking Status: Former smoker Past Alcohol Use History: Abuse Past Drug Use History: Marijuana - Past Family History Father Family Medical History: Cancer Additional Family Medical History / Comment(s): Esophageal cancer Mother Family Medical History: Thyroid Disorder Additional Family Medical History / Comment(s): depression General Exam Limitations: no limitations General appearance: alert, in no apparent distress Head exam: Present: normocephalic, normal inspection. Absent: atraumatic (Left Temporal Laceration) Eye exam: Present: normal appearance, PERRL, EOMI. Absent: scleral icterus, conjunctival injection, periorbital swelling ENT exam: Present: normal exam, mucous membranes moist Neck exam: Present: normal inspection. Absent: tenderness, meningismus, lymphadenopathy Respiratory exam: Present: normal lung sounds bilaterally. Absent: respiratory distress, wheezes, rales, rhonchi, stridor Cardiovascular Exam: Present: regular rate, normal rhythm, normal heart sounds. Absent: systolic murmur, diastolic murmur, rubs, gallop, clicks GI/Abdominal exam: Present: soft, normal bowel sounds. Absent: distended, tenderness, guarding, rebound, rigid Extremities exam: Present: normal inspection, full ROM, normal capillary refill. Absent: tenderness, pedal edema, joint swelling, calf tenderness Back exam: Present: normal inspection Neurological exam: Present: alert, oriented X3, CN II-XII intact Psychiatric exam: Present: normal affect, normal mood Skin exam: Present: warm, dry, intact, normal color. Absent: rash Course Vital Signs 03/08/21 18:04 Temperature 97.9 F Pulse Rate 76 Respiratory 16 Rate Blood Pressure 128/78 O2 Sat by Pulse 100 Oximetry - Reevaluation(s) Reevaluation #1: 03/08/21 23:08 Medical record is reviewed Reevaluation #2: 03/08/21 23:09 Patient lacerationis repaired without difficulty and hemostasis achieved Procedures - Laceration Laceration #1 Consent Obtained: verbal consent Indication: laceration Site: face Size (cm): 3 Description: stellate Depth: simple, single layer Anesthetic Used: lidocaine 1% Anesthesia Technique: local infiltration Type of Sutures: nylon Size of Sutures: 5-0 Technique: simple, interrupted Complications: pain Patient Tolerated Procedure: well Medical Decision Making - Medical Decision Making 45 female to the emergency today. Patient resents today for evaluation of fall alcoholic fall with laceration. Lacerations repaired here in the ER, CT brain is negative for acute disease a patient can be discharged home - Radiology Data Radiology results: report reviewed (CT brain C-spine and facial bones negative for acute disease), image reviewed Disposition Clinical Impression: Closed head injury, Laceration of left facial nerve, H/O ETOH abuse, Alcohol intoxication Disposition: HOME SELF-CARE Condition: Good Instructions (If sedation given, give patient instructions): Concussion (ED), Laceration (ED) Is patient prescribed a controlled substance at d/c from ED?: No Referrals: Daniel Graham MD [Primary Care Provider] - 1-2 days
[2021-03-08] MEDS ORDERED: LIDOCAINE 1% INJ 10MG/ML (20 ML MDV) SQ ONE (23:16)
== END 2021-03-08 23:23 | disposition home or self-care (01) ==
LOC: EC 17:59
DX: S01.81XA Laceration without foreign body of other part of head, initial encounter (principal); F10.129 Alcohol abuse with intoxication, unspecified; K21.9 Gastro-esophageal reflux disease without esophagitis; F32.A Depression, unspecified; F12.90 Cannabis use, unspecified, uncomplicated; Z87.891 Personal history of nicotine dependence; Z79.899 Other long term (current) drug therapy; Y90.9 Presence of alcohol in blood, level not specified; W06.XXXA Fall from bed, initial encounter; Y92.009 Unspecified place in unspecified non-institutional (private) residence as the place of occurrence of the external cause
CPT/HCPCS: 72125; 70486; 70450; 12013; 99284; J2001

== ENCOUNTER 2022-03-12 22:14 | Emergency (ER) | payer OTHER ==
[2022-03-12 22:25] VITALS: TEMP 97.3
[2022-03-13 02:25] LABS: Basophils % (A) 1 %; Eosinophils # (A) 0.2 k/uL (0-0.7); Eosinophils % (A) 5 %; HCT 36.7 % (34.0-46.0); HGB 12.3 gm/dL (11.4-16.0); Lymphocytes # (A) 1.2 k/uL (1.0-4.8); Lymphocytes % (A) 37 %; MCHC 33.4 g/dL (31.0-37.0); MCV 89.7 fL (80.0-100.0); Mean Platelet Volume 8.1; Monocytes # (A) 0.3 k/uL (0-1.0); Monocytes % (A) 9 %; Neutrophils # (A) 1.4 k/uL (1.3-7.7); Neutrophils % (A) 43 %; Platelet Count 271 k/uL (150-450); RBC 4.09 m/uL (3.80-5.40); RDW 13.3 % (11.5-15.5); WBC 3.3 k/uL (3.8-10.6)
[2022-03-13 02:27] LABS: Appearance,Urine Clear (Clear); Bilirubin,Urine Negative (Negative); Blood,Urine Negative (Negative); Color,Urine Yellow; Glucose,Urine (UA) Negative (Negative); Ketones,Urine Negative (Negative); Leukocyte Esterase,Urine Negative (Negative); Nitrite,Urine Negative (Negative); PH, Urine 5.5 (5.0-8.0); Protein,Urine Negative (Negative); Urobilinogen,Urine <2.0 mg/dL (<2.0)
[2022-03-13 02:36] LABS: ALT 27 U/L (4-34); AST 27 U/L (14-36); African American GFR (CKD) >90 (>60 ml/min/1.73 sqM); Albumin 4.1 g/dL (3.5-5.0); Alkaline Phosphatase 60 U/L (38-126); Anion Gap 9 mmol/L; Blood Urea Nitrogen 12 mg/dL (7-17); Calcium 8.2 mg/dL (8.4-10.2); Carbon Dioxide 23 mmol/L (22-30); Chloride 109 mmol/L (98-107); Glucose 98 mg/dL (74-99); Non-African American GFR(CKD) >90 (>60 ml/min/1.73 sqM); Potassium 4.5 mmol/L (3.5-5.1); Sodium 141 mmol/L (137-145); Total Bilirubin 0.3 mg/dL (0.2-1.3); Total Protein 6.7 g/dL (6.3-8.2)
[2022-03-13 02:43] LABS: Amphetamine Screen,Urine Not Detected (NotDetected); Barbiturate Screen,Urine Not Detected (NotDetected); Benzodiazepines Screen,Urine Not Detected (NotDetected); Cocaine Screen,Urine Not Detected (NotDetected); Methadone Screen, Urine Not Detected (NotDetected); Opiate Screen,Urine Not Detected (NotDetected); Oxycodone Screen, Urine Not Detected (NotDetected); Phencyclidine Screen,Urine Not Detected (NotDetected); Tricyclic Antidepressant,Urine Detected (NotDetected); Urn Cannabinoid Scrn Not Detected (NotDetected)
--- NOTE | 2022-03-13 02:56 | ED ---
Psych HPI - General Chief Complaint: Psychiatric Symptoms Stated Complaint: Petition Time Seen by Provider: 03/12/22 22:30 Source: police Mode of arrival: ambulatory - History of Present Illness Initial Comments: 46-year-old female with past medical history of alcohol abuse presents to the emergency department accompanied by police. She was living in a sober free house. She relapsed today and drank a half pint of alcohol. They found out about this and they called police. When police arrived the patient states that she was going to kill herself as she could not face her family and be at this appointment again. States that she was sober for one month. She has been hosp italized for depression and suicidal thoughts before. She denies using any drugs. No concern for . Denies any attempt at harming herself. Stated to police that she was going to stab herself with a knife. No other alleviating, precipitating or modifying factors - Related Data Home Medications Medication Instructions Recorded Confirmed SUMAtriptan succinate [Imitrex] 50 mg PO DAILY PRN 10/17/20 10/17/20 Previous Rx's Medication Instructions Recorded Doxepin [SINEquan] 100 mg PO HS 30 Days cap 10/22/20 Naltrexone HCl [Revia] 50 mg PO DAILY 30 Days tab 10/22/20 Nicotine 14Mg/24Hr Patch [Habitrol] 1 patch TRANSDERM DAILY 30 Days 10/22/20 patch chlordiazePOXIDE HCl [Librium] 25 mg PO BID 3 Days cap 10/22/20 Allergies Allergy/AdvReac Type Severity Reaction Status Date / Time No Known Allergies Allergy Verified 03/12/22 22:25 Review of Systems ROS Statement: Those systems with pertinent positive or pertinent negative responses have been documented in the HPI. ROS Other: All systems not noted in ROS Statement are negative. Past Medical History Past Medical History: GERD/Reflux Additional Past Medical History / Comment(s): migraines,nodules on thyroid History of Any Multi-Drug Resistant Organisms: None Reported Past Surgical History: Cholecystectomy, Orthopedic Surgery Additional Past Surgical History / Comment(s): hand surg., bankart procedure left shoulder, left ulnar nerve surgery Past Anesthesia/Blood Transfusion Reactions: No Reported Reaction Past Psychological History: ADD/ADHD, Depression Smoking Status: Current every day smoker Past Alcohol Use History: Abuse, Daily, Heavy Past Drug Use History: Marijuana - Past Family History Father Family Medical History: Cancer Additional Family Medical History / Comment(s): Esophageal cancer Mother Family Medical History: Thyroid Disorder Additional Family Medical History / Comment(s): depression General Exam Limitations: no limitations General appearance: alert, appears intoxicated Head exam: Present: atraumatic, normocephalic, normal inspection Eye exam: Present: normal appearance, PERRL, EOMI. Absent: scleral icterus, conjunctival injection, periorbital swelling ENT exam: Present: normal exam, mucous membranes moist Neck exam: Present: normal inspection. Absent: tenderness, meningismus, lymphadenopathy Respiratory exam: Present: normal lung sounds bilaterally. Absent: respiratory distress, wheezes, rales, rhonchi, stridor Cardiovascular Exam: Present: regular rate, normal rhythm, normal heart sounds. Absent: systolic murmur, diastolic murmur, rubs, gallop, clicks GI/Abdominal exam: Present: soft, normal bowel sounds. Absent: distended, tenderness, guarding, rebound, rigid Extremities exam: Present: normal inspection, full ROM, normal capillary refill. Absent: tenderness, pedal edema, joint swelling, calf tenderness Back exam: Present: normal inspection Neurological exam: Present: alert, oriented X3, CN II-XII intact Psychiatric exam: Present: depressed, suicidal ideation Skin exam: Present: warm, dry, intact, normal color. Absent: rash Course Vital Signs 03/12/22 03/13/22 22:22 04:00 Temperature 97.3 F L Pulse Rate 95 86 Respiratory 18 16 Rate Blood Pressure 149/99 126/82 O2 Sat by Pulse 96 98 Oximetry Medical Decision Making - Medical Decision Making On arrival patient was placed into room 17. A thorough history and physical exam was performed. Patient does arrive intoxicated. BAT is performed and is .101. Patient does require a period of observation before she is sober. We did re-BAT the patient. She is evaluated by EPS and does require psychiatric admission. I did order laboratory studies and a covert. Patient is currently awaiting transfer at this time - Lab Data Result diagrams: 03/13/22 02:19 03/13/22 02:19 Lab Results 03/13/22 03/13/22 03/13/22 Range/Units 02:19 02:19 02:19 WBC 3.3 L (3.8-10.6) k/uL RBC 4.09 (3.80-5.40) m/uL Hgb 12.3 (11.4-16.0) gm/dL Hct 36.7 (34.0-46.0) % MCV 89.7 (80.0-100.0) fL MCH 30.0 (25.0-35.0) pg MCHC 33.4 (31.0-37.0) g/dL RDW 13.3 (11.5-15.5) % Plt Count 271 (150-450) k/uL MPV 8.1 Neutrophils % 43 % Lymphocytes % 37 % Monocytes % 9 % Eosinophils % 5 % Basophils % 1 % Neutrophils # 1.4 (1.3-7.7) k/uL Lymphocytes # 1.2 (1.0-4.8) k/uL Monocytes # 0.3 (0-1.0) k/uL Eosinophils # 0.2 (0-0.7) k/uL Basophils # 0.0 (0-0.2) k/uL Sodium (137-145) mmol/L Potassium (3.5-5.1) mmol/L Chloride (98-107) mmol/L Carbon Dioxide (22-30) mmol/L Anion Gap mmol/L BUN (7-17) mg/dL Creatinine (0.52-1.04) mg/dL Est GFR (CKD-EPI)AfAm (>60 ml/min/1.73 sqM) Est GFR (CKD-EPI)NonAf (>60 ml/min/1.73 sqM) Glucose (74-99) mg/dL Calcium (8.4-10.2) mg/dL Total Bilirubin (0.2-1.3) mg/dL AST (14-36) U/L ALT (4-34) U/L Alkaline Phosphatase (38-126) U/L Total Protein (6.3-8.2) g/dL Albumin (3.5-5.0) g/dL Urine Color Yellow Urine Appearance Clear (Clear) Urine pH 5.5 (5.0-8.0) Ur Specific [place] 1.020 (1.001-1.035) Urine Protein Negative (Negative) Urine Glucose (UA) Negative (Negative) Urine Ketones Negative (Negative) Urine Blood Negative (Negative) Urine Nitrite Negative (Negative) Urine Bilirubin Negative (Negative) Urine Urobilinogen <2.0 (<2.0) mg/dL Ur Leukocyte Esterase Negative (Negative) Urine HCG, Qual Not Detected (Not Detectd) Urine Opiates Screen Not Detected (NotDetected) Ur Oxycodone Screen Not Detected (NotDetected) Urine Methadone Screen Not Detected (NotDetected) Ur Propoxyphene Screen Not Detected (NotDetected) Ur Barbiturates Screen Not Detected (NotDetected) U Tricyclic Antidepress Detected H (NotDetected) Ur Phencyclidine Scrn Not Detected (NotDetected) Ur Amphetamines Screen Not Detected (NotDetected) U Methamphetamines Scrn Not Detected (NotDetected) U Benzodiazepines Scrn Not Detected (NotDetected) Urine Cocaine Screen Not Detected (NotDetected) U Marijuana (THC) Screen Not Detected (NotDetected) Coronavirus (PCR) (Not Detectd) 03/13/22 03/13/22 Range/Units 02:19 02:19 WBC (3.8-10.6) k/uL RBC (3.80-5.40) m/uL Hgb (11.4-16.0) gm/dL Hct (34.0-46.0) % MCV (80.0-100.0) fL MCH (25.0-35.0) pg MCHC (31.0-37.0) g/dL RDW (11.5-15.5) % Plt Count (150-450) k/uL MPV Neutrophils % % Lymphocytes % % Monocytes % % Eosinophils % % Basophils % % Neutrophils # (1.3-7.7) k/uL Lymphocytes # (1.0-4.8) k/uL Monocytes # (0-1.0) k/uL Eosinophils # (0-0.7) k/uL Basophils # (0-0.2) k/uL Sodium 141 (137-145) mmol/L Potassium 4.5 (3.5-5.1) mmol/L Chloride 109 H (98-107) mmol/L Carbon Dioxide 23 (22-30) mmol/L Anion Gap 9 mmol/L BUN 12 (7-17) mg/dL Creatinine 0.61 (0.52-1.04) mg/dL Est GFR (CKD-EPI)AfAm >90 (>60 ml/min/1.73 sqM) Est GFR (CKD-EPI)NonAf >90 (>60 ml/min/1.73 sqM) Glucose 98 (74-99) mg/dL Calcium 8.2 L (8.4-10.2) mg/dL Total Bilirubin 0.3 (0.2-1.3) mg/dL AST 27 (14-36) U/L ALT 27 (4-34) U/L Alkaline Phosphatase 60 (38-126) U/L Total Protein 6.7 (6.3-8.2) g/dL Albumin 4.1 (3.5-5.0) g/dL Urine Color Urine Appearance (Clear) Urine pH (5.0-8.0) Ur Specific [place] (1.001-1.035) Urine Protein (Negative) Urine Glucose (UA) (Negative) Urine Ketones (Negative) Urine Blood (Negative) Urine Nitrite (Negative) Urine Bilirubin (Negative) Urine Urobilinogen (<2.0) mg/dL Ur Leukocyte Esterase (Negative) Urine HCG, Qual (Not Detectd) Urine Opiates Screen (NotDetected) Ur Oxycodone Screen (NotDetected) Urine Methadone Screen (NotDetected) Ur Propoxyphene Screen (NotDetected) Ur Barbiturates Screen (NotDetected) U Tricyclic Antidepress (NotDetected) Ur Phencyclidine Scrn (NotDetected) Ur Amphetamines Screen (NotDetected) U Methamphetamines Scrn (NotDetected) U Benzodiazepines Scrn (NotDetected) Urine Cocaine Screen (NotDetected) U Marijuana (THC) Screen (NotDetected) Coronavirus (PCR) Not Detected (Not Detectd) Disposition Clinical Impression: H/O ETOH abuse, Suicidal ideation, Major depressive disorder Disposition: OTHER INSTITUTION NOT DEFINED Condition: Stable Is patient prescribed a controlled substance at d/c from ED?: No Referrals: Pricila Nance MD [Primary Care Provider] - 1-2 days - Out of Hospital Transfer - Req. Specs Out of Hospital Transfer - Requested Specifics: Psychiatric Non-ICU ([place])
[2022-03-13] MEDS ORDERED: MAG HYDROX/AL HYDROX/SIMETH 30 ML, HYOSCYAMINE ELIXIR 10 ML, LIDOCAINE VISCOUS 2% 10 ML PO STA ×3 (03:43)
[2022-03-13] MEDS ORDERED: ACETAMINOPHEN TAB 500 MG TAB PO STA (03:55)
[2022-03-13] MEDS ORDERED: ALPRAZolam 0.5 MG TAB PO STA (03:55)
[2022-03-13 04:01] VITALS: BP 126/82; PULSE 86; RESP 16
[2022-03-13] MEDS ORDERED: clonazePAM 0.5 MG TAB PO STA (07:15)
== END 2022-03-13 09:38 | disposition other institution (70) ==
LOC: EC 22:14
DX: F10.14 Alcohol abuse with alcohol-induced mood disorder (principal); R45.851 Suicidal ideations; F17.200 Nicotine dependence, unspecified, uncomplicated; F12.90 Cannabis use, unspecified, uncomplicated; F32.A Depression, unspecified
CPT/HCPCS: 36415; 80053; 80306; 81003; 81025; 82075; 85025; 87635; 99285

== ENCOUNTER 2023-07-19 07:22 | Inpatient (IN) | payer OTHER ==
--- NOTE | 2023-07-19 08:13 | ED ---
General Adult HPI - General Source: patient, EMS, RN notes reviewed Mode of arrival: EMS Limitations: altered mental status <Hamilton Morales - Last Filed: 07/19/23 14:32> <Vania Quinteros - Last Filed: 07/19/23 23:39> - General Stated complaint: Overdose Time Seen by Provider: 07/19/23 07:25 - History of Present Illness Initial comments: 48-year-old female presents emergency department via EMS with reports of possible overdose. Is unclear who called EMS though when EMS arrived they found her at her bedroom door. Patient is acutely altered. She did have a bottle of Seroquel which was recently filled 6 days ago and was supposed to be for 30 days. These were 300 mg Seroquel tablets that are gone. Patient is very confused patient noted to have small abrasion above her right eye there was report that for possible alcohol use or abuse. Patient herself is unable to provide significant information. (Hamilton Morales) - Related Data Home Medications Medication Instructions Recorded Confirmed SUMAtriptan succinate [Imitrex] 50 mg PO BID PRN 10/17/20 07/19/23 Albuterol Sulfate [Albuterol 2 puff PO RT-Q4H PRN 07/19/23 07/19/23 Sulfate Hfa] Metoprolol Succinate (ER) [Toprol 50 mg PO DAILY 07/19/23 07/19/23 Xl] Ondansetron [Zofran] 4 mg PO Q8HR PRN 07/19/23 07/19/23 QUEtiapine FUMARATE [SEROquel] 150 mg PO HS 07/19/23 07/19/23 Rimegepant Sulfate [Nurtec Odt] 75 mg PO DAILY PRN 07/19/23 07/19/23 Vortioxetine Hydrobromide 20 mg PO DAILY 07/19/23 07/19/23 [Trintellix] rOPINIRole HCL [Requip] 0.5 mg PO HS 07/19/23 07/19/23 Allergies Allergy/AdvReac Type Severity Reaction Status Date / Time No Known Allergies Allergy Verified 07/19/23 10:39 Review of Systems ROS Other: All systems not noted in ROS Statement are negative. <Hamilton Morales - Last Filed: 07/19/23 14:32> ROS Other: All systems not noted in ROS Statement are negative. <Vania Quinteros - Last Filed: 07/19/23 23:39> ROS Statement: Those systems with pertinent positive or pertinent negative responses have been documented in the HPI. Past Medical History Past Medical History: GERD/Reflux Additional Past Medical History / Comment(s): migraines,nodules on thyroid History of Any Multi-Drug Resistant Organisms: None Reported Past Surgical History: Cholecystectomy, Orthopedic Surgery Additional Past Surgical History / Comment(s): hand surg., bankart procedure left shoulder, left ulnar nerve surgery Past Anesthesia/Blood Transfusion Reactions: No Reported Reaction Past Psychological History: ADD/ADHD, Depression Smoking Status: Current every day smoker Past Alcohol Use History: Abuse, Daily, Heavy Past Drug Use History: Marijuana - Past Family History Father Family Medical History: Cancer Additional Family Medical History / Comment(s): Esophageal cancer Mother Family Medical History: Thyroid Disorder Additional Family Medical History / Comment(s): depression <Hamilton Morales - Last Filed: 07/19/23 14:32> General Exam Limitations: altered mental status General appearance: alert, in no apparent distress Head exam: Present: atraumatic, normocephalic. Absent: normal inspection (Right periorbital abrasion) Eye exam: Present: normal appearance, PERRL, EOMI. Absent: scleral icterus, conjunctival injection, periorbital swelling ENT exam: Present: normal exam, normal oropharynx, mucous membranes moist Neck exam: Present: normal inspection. Absent: tenderness, meningismus, full ROM (In c-collar), lymphadenopathy Respiratory exam: Present: normal lung sounds bilaterally. Absent: respiratory distress, wheezes, rales, rhonchi, stridor Cardiovascular Exam: Present: regular rate, normal rhythm, normal heart sounds. Absent: systolic murmur, diastolic murmur, rubs, gallop, clicks GI/Abdominal exam: Present: soft, normal bowel sounds. Absent: distended, tenderness, guarding, rebound, rigid Extremities exam: Present: other (Diffuse bruises are noted) Back exam: Present: normal inspection, full ROM. Absent: tenderness Neurological exam: Present: alert, oriented X3, CN II-XII intact, reflexes normal. Absent: motor sensory deficit Skin exam: Present: warm, dry, intact, normal color. Absent: rash <Hamilton Morales - Last Filed: 07/19/23 14:32> Course Vital Signs 07/19/23 07/19/23 07/19/23 07:23 09:54 11:30 Temperature 96.9 F L Pulse Rate 86 92 86 Respiratory 18 20 Rate Blood Pressure 126/96 163/94 O2 Sat by Pulse 100 100 Oximetry EKG Findings - EKG Comments: EKG Findings:: EKG performed at 7: 30 sinus rhythm with a rate of 89 DC 144 QRS 95 QT/QTc 372/418 are noted diffuse Q waves. - EKG Results: EKG: interpreted by ERMD <Hamilton Morales - Last Filed: 07/19/23 14:32> Medical Decision Making - Lab Data Result diagrams: 07/19/23 07:37 07/19/23 07:37 - EKG Data -: EKG Interpreted by Me <Hamilton Morales - Last Filed: 07/19/23 14:32> - Lab Data Result diagrams: 07/19/23 13:15 07/19/23 21:45 <Vania Quinteros - Last Filed: 07/19/23 23:39> - Medical Decision Making Was pt. sent in by a medical professional or institution (, PA, JUDO TEACHER, urgent care, hospital, or long-term...) When possible be specific @ -No Did you speak to anyone other than the patient for history (EMS, parent, family, police, friend...)? What history was obtained from this source @ -EMS and family providing past medical history and current complaint Did you review nursing and triage notes (agree or disagree)? Why? @ -I reviewed and agree with nursing and triage notes Were old charts reviewed (outside hosp., previous admission, EMS record, old EKG, old radiological studies, urgent care reports/EKG's, long-term records)? Report findings @ -Reviewed prior CBC and comp's and past medical history Differential Diagnosis (chest pain, altered mental status, abdominal pain women, abdominal pain men, vaginal bleeding, weakness, fever, dyspnea, syncope, headache, dizziness, GI bleed, back pain, seizure, CVA, palpatations, mental health, musculoskeletal)? @ -Differential Altered Mental Status: Hypoglycemia, DKA, hypercapnia, ETOH, overdose, CO poisoning, trauma, myxedema coma, HTN encephalopathy, infection, encephalitis, psychosis, intercranial hemorrhage, hepatic encephalopathy, meningitis, CVA, this is not meant to be an all-inclusive list EKG interpreted by me (3pts min.). @ -As above X-rays interpreted by me (1pt min.). @ -Chest ray 1 view shows no acute cardiopulmonary process CT interpreted by me (1pt min.). @ -CT brain, C-spine no acute intracranial hemorrhage mass effect or cervical spine abnormality U/S interpreted by me (1pt. min.). @ -None done What testing was considered but not performed or refused? (CT, X-rays, U/S, labs)? Why? @ -None What meds were considered but not given or refused? Why? @ -None Did you discuss the management of the patient with other professionals (professionals i.e. , PA, JUDO TEACHER, lab, RT, psych nurse, social work professor, entertainment production professional, te acher, learning and development officer, casey saw operator)? Give summary @ -Dr. Nance for admission for altered mental status, dehydration, alcohol withdrawal, drug ingestion,, request ICU admission I did discuss the case with Dr. Cerna recommends 3 A of bicarb and bicarb infusion. Poison control was also contacted upon initial evaluation by nurse. Was smoking cessation discussed for >3mins.? @ -No Was critical care preformed (if so, how long)? @ -35 minutes Were there social determinants of health that impacted care today? How? (Homelessness, low income, unemployed, alcoholism, drug addiction, transportation, low edu. Level, literacy, decrease access to med. care, custodial, rehab)? @ -No Was there de-escalation of care discussed even if they declined (Discuss DNR or withdrawal of care, Hospice)? DNR status @ -No What co-morbidities impacted this encounter? (DM, HTN, Smoking, COPD, CAD, Cancer, CVA, ARF, Chemo, Hep., AIDS, mental health diagnosis, sleep apnea, morbid obesity)? @ -Alcohol abuse Was patient admitted / discharged? Hospital course, mention meds given and route, prescriptions, significant lab abnormalities, going to OR and other pertinent info. @ -Admitted patient is acutely altered with bicarb 8 on ABG. Patient is metabolic acidosis more likely related to alcohol ketoacidosis, dehydration patient was given fluid bolus, started on bicarb infusion patient will be admitted ICU will have repeat labs Poison control contacted recommended serum osmole, IV fluids and repeat laboratory studies. ICU and PCP were notified. Patient did have CT brain and C-spine which was unremarkable Undiagnosed new problem with uncertain prognosis? @ -No Drug Therapy requiring intensive monitoring for toxicity (Heparin, Nitro, Insulin, Cardizem)? @ -No Were any procedures done? @ -No Diagnosis/symptom? @ -Metabolic acidosis, altered mental status, drug overdose, alcohol withdraw Acute, or Chronic, or Acute on Chronic? @ -Acute Uncomplicated (without systemic symptoms) or Complicated (systemic symptoms)? @ -Complicated Side effects of treatment? @ -No Exacerbation, Progression, or Severe Exacerbation? @ -No Poses a threat to life or bodily function? How? (Chest pain, USA, CT, pneumonia, PE, COPD, DKA, ARF, appy, cholecystitis, CVA, Diverticulitis, Homicidal, Suicidal, threat to staff... and all critical care pts) @ -Yes patient has drug overdose, alcohol withdrawal severe metabolic acidosis (Hamilton Morales) - Lab Data Lab Results 07/19/23 07/19/23 07/19/23 Range/Units 07:37 07:37 07:37 WBC 15.1 H (3.8-10.6) k/uL RBC 5.25 (3.80-5.40) m/uL Hgb 16.7 H (11.4-16.0) gm/dL Hct 52.3 H (34.0-46.0) % MCV 99.7 (80.0-100.0) fL MCH 31.8 (25.0-35.0) pg MCHC 31.9 (31.0-37.0) g/dL RDW 13.9 (11.5-15.5) % Plt Count 273 (150-450) k/uL MPV 7.3 Neutrophils % 91 % Lymphocytes % 3 % Monocytes % 5 % Eosinophils % 0 % Basophils % 0 % Neutrophils # 13.7 H (1.3-7.7) k/uL Lymphocytes # 0.4 L (1.0-4.8) k/uL Monocytes # 0.8 (0-1.0) k/uL Eosinophils # 0.1 (0-0.7) k/uL Basophils # 0.0 (0-0.2) k/uL Sodium 133 L (137-145) mmol/L Potassium 4.6 (3.5-5.1) mmol/L Chloride 102 (98-107) mmol/L Carbon Dioxide <5 L* (22-30) mmol/L Anion Gap mmol/L BUN 15 (7-17) mg/dL Creatinine 1.63 H (0.52-1.04) mg/dL Est GFR (CKD-EPI)AfAm 42 (>60 ml/min/1.73 sqM) Est GFR (CKD-EPI)NonAf 37 (>60 ml/min/1.73 sqM) Glucose 178 H (74-99) mg/dL Osmolality (275-295) mOsm/kg Plasma Lactic Acid [place] (0.7-2.0) mmol/L Calcium 11.9 H (8.4-10.2) mg/dL Total Bilirubin 1.1 (0.2-1.3) mg/dL AST 46 H (14-36) U/L ALT 79 H (4-34) U/L Alkaline Phosphatase 225 H (38-126) U/L Creatine Kinase 129 (30-135) U/L Troponin I (0.000-0.034) ng/mL Total Protein 7.9 (6.3-8.2) g/dL Albumin 4.9 (3.5-5.0) g/dL Urine Color Light Yellow Urine Appearance Cloudy H (Clear) Urine pH 6.0 (5.0-8.0) Ur Specific [place] 1.018 (1.001-1.035) Urine Protein 2+ H (Negative) Urine Glucose (UA) Trace H (Negative) Urine Ketones 4+ H (Negative) Urine Blood Moderate H (Negative) Urine Nitrite Negative (Negative) Urine Bilirubin 2+ H (Negative) Urine Urobilinogen 8.0 (<2.0) mg/dL Ur Leukocyte Esterase Negative (Negative) Urine RBC 1 (0-5) /hpf Urine WBC 6 H (0-5) /hpf Urine WBC Clumps Few H (None) /hpf Ur Squamous Epith Cells 1 (0-4) /hpf Urine Bacteria Rare H (None) /hpf Urine Mucus Rare H (None) /hpf Salicylates <1.0 mg/dL Urine Opiates Screen Not Detected (NotDetected) Ur Oxycodone Screen Not Detected (NotDetected) Urine Methadone Screen Not Detected (NotDetected) Acetaminophen <10.0 ug/mL Ur Barbiturates Screen Not Detected (NotDetected) U Tricyclic Antidepress Detected H (NotDetected) Ur Phencyclidine Scrn Not Detected (NotDetected) Ur Amphetamines Screen Not Detected (NotDetected) U Methamphetamines Scrn Not Detected (NotDetected) U Benzodiazepines Scrn Detected H (NotDetected) Urine Cocaine Screen Not Detected (NotDetected) U Marijuana (THC) Screen Detected H (NotDetected) Serum Alcohol <10 mg/dL 07/19/23 07/19/23 07/19/23 Range/Units 07:37 07:37 07:37 WBC (3.8-10.6) k/uL RBC (3.80-5.40) m/uL Hgb (11.4-16.0) gm/dL Hct (34.0-46.0) % MCV (80.0-100.0) fL MCH (25.0-35.0) pg MCHC (31.0-37.0) g/dL RDW (11.5-15.5) % Plt Count (150-450) k/uL MPV Neutrophils % % Lymphocytes % % Monocytes % % Eosinophils % % Basophils % % Neutrophils # (1.3-7.7) k/uL Lymphocytes # (1.0-4.8) k/uL Monocytes # (0-1.0) k/uL Eosinophils # (0-0.7) k/uL Basophils # (0-0.2) k/uL Sodium (137-145) mmol/L Potassium (3.5-5.1) mmol/L Chloride (98-107) mmol/L Carbon Dioxide (22-30) mmol/L Anion Gap mmol/L BUN (7-17) mg/dL Creatinine (0.52-1.04) mg/dL Est GFR (CKD-EPI)AfAm (>60 ml/min/1.73 sqM) Est GFR (CKD-EPI)NonAf (>60 ml/min/1.73 sqM) Glucose (74-99) mg/dL Osmolality 300 H (275-295) mOsm/kg Plasma Lactic Acid [place] 1.7 (0.7-2.0) mmol/L Calcium (8.4-10.2) mg/dL Total Bilirubin (0.2-1.3) mg/dL AST (14-36) U/L ALT (4-34) U/L Alkaline Phosphatase (38-126) U/L Creatine Kinase (30-135) U/L Troponin I <0.012 (0.000-0.034) ng/mL Total Protein (6.3-8.2) g/dL Albumin (3.5-5.0) g/dL Urine Color Urine Appearance (Clear) Urine pH (5.0-8.0) Ur Specific [place] (1.001-1.035) Urine Protein (Negative) Urine Glucose (UA) (Negative) Urine Ketones (Negative) Urine Blood (Negative) Urine Nitrite (Negative) Urine Bilirubin (Negative) Urine Urobilinogen (<2.0) mg/dL Ur Leukocyte Esterase (Negative) Urine RBC (0-5) /hpf Urine WBC (0-5) /hpf Urine WBC Clumps (None) /hpf Ur Squamous Epith Cells (0-4) /hpf Urine Bacteria (None) /hpf Urine Mucus (None) /hpf Salicylates mg/dL Urine Opiates Screen (NotDetected) Ur Oxycodone Screen (NotDetected) Urine Methadone Screen (NotDetected) Acetaminophen ug/mL Ur Barbiturates Screen (NotDetected) U Tricyclic Antidepress (NotDetected) Ur Phencyclidine Scrn (NotDetected) Ur Amphetamines Screen (NotDetected) U Methamphetamines Scrn (NotDetected) U Benzodiazepines Scrn (NotDetected) Urine Cocaine Screen (NotDetected) U Marijuana (THC) Screen (NotDetected) Serum Alcohol mg/dL Disposition Time of Disposition: 10:40 <Hamilton Morales - Last Filed: 07/19/23 14:32> <Vania Quinteros - Last Filed: 07/19/23 23:39> Clinical Impression: Metabolic acidosis, Dehydration, Alcohol withdrawal, Drug overdose Disposition: ADMITTED IP TO THIS [facility] Condition: Poor
[2023-07-19] MEDS: SODIUM CHLORIDE 0.9% 1,000 ML IV STA (08:18)
[2023-07-19 08:34] LABS: Appearance,Urine Cloudy (Clear); Bacteria,Urine Rare /hpf; Bilirubin,Urine 2+ (Negative); Blood,Urine Moderate (Negative); Color,Urine Light Yellow; Glucose,Urine (UA) Trace (Negative); Ketones,Urine 4+ (Negative); Leukocyte Esterase,Urine Negative (Negative); Mucus,Urine Rare /hpf; Nitrite,Urine Negative (Negative); Protein,Urine 2+ (Negative); RBC,Urine 1 /hpf (0-5); Specific Gravity,Urine 1.018 (1.001-1.035); Squamous Epithelial Cell,Urine 1 /hpf (0-4); WBC,Urine 6 /hpf (0-5)
--- NOTE | 2023-07-19 08:38 | CT ---
EXAMINATION TYPE: CT brain cspine wo con CT DLP: 1678.3 mGycm, Automated exposure control for dose reduction was used. DATE OF EXAM: 07/19/2023 8:19 AM COMPARISON: 03/08/2021 CLINICAL INDICATION:Female, 48 years old with history of AMS; Pt found unresponsive, possible overdos e, AMS. TECHNIQUE: Brain: Multiple axial CT images of the brain were obtained without IV contrast. Cspine: Axial CT images from the skull base to the inferior aspect of T2 we obtained without intraven ous contrast. Coronal and sagittal reformatted images were also reviewed. FINDINGS: Brain: Extra-axial spaces: No abnormal extra-axial fluid collections. Ventricular system: Within normal limits Cerebral parenchyma: No acute intraparenchymal hemorrhage or mass effect. The ba-white junction is well differentiated. Cerebellum: Unremarkable. Mass effect: No evidence of midline shift. Intracranial vasculature: unremarkable Soft tissues: Normal. Calvarium/osseous structures: No depressed skull fracture. Paranasal sinuses and mastoid air cells: Clear. Visualized orbits: Orbital contents are intact. Cervical spine: Fracture: None. Osseous structures: Multilevel degenerative disc disease changes with endplate spurring and disc oste ophyte complex's. Vertebral alignment: Within normal limits. Spinal canal/Neural Foramina: No evidence of significant spinal canal narrowing. No evidence for sign ificant neural foraminal stenosis. Neck soft tissues: Prevertebral soft tissues are within normal limits. Other: The airway is patent. The lung apices are clear. IMPRESSION: 1. No acute intracranial process. 2. No evidence of cervical spine fracture. 3. Mild multilevel degenerative disc disease.
[2023-07-19 08:43] LABS: Basophils % (A) 0 %; Eosinophils # (A) 0.1 k/uL (0-0.7); Eosinophils % (A) 0 %; HCT 52.3 % (34.0-46.0); HGB 16.7 gm/dL (11.4-16.0); Lymphocytes # (A) 0.4 k/uL (1.0-4.8); Lymphocytes % (A) 3 %; MCH 31.8 pg (25.0-35.0); MCHC 31.9 g/dL (31.0-37.0); MCV 99.7 fL (80.0-100.0); Mean Platelet Volume 7.3; Monocytes # (A) 0.8 k/uL (0-1.0); Monocytes % (A) 5 %; Neutrophils # (A) 13.7 k/uL (1.3-7.7); Neutrophils % (A) 91 %; Platelet Count 273 k/uL (150-450); RBC 5.25 m/uL (3.80-5.40); RDW 13.9 % (11.5-15.5); WBC 15.1 k/uL (3.8-10.6)
[2023-07-19 08:51] LABS: Amphetamine Screen,Urine Not Detected (NotDetected); Barbiturate Screen,Urine Not Detected (NotDetected); Benzodiazepines Screen,Urine Detected (NotDetected); Cocaine Screen,Urine Not Detected (NotDetected); Methadone Screen, Urine Not Detected (NotDetected); Opiate Screen,Urine Not Detected (NotDetected); Phencyclidine Screen,Urine Not Detected (NotDetected); Tricyclic Antidepressant,Urine Detected (NotDetected); Urn Cannabinoid Scrn Detected (NotDetected)
[2023-07-19 08:52] LABS: Oxycodone Screen, Urine Not Detected (NotDetected)
[2023-07-19] MEDS: SODIUM CHLORIDE 0.9% 500 ML 500 ML IV STA (09:11)
[2023-07-19 09:13] LABS: ALT 79 U/L (4-34); AST 46 U/L (14-36); Acetaminophen <10.0 ug/mL; African American GFR (CKD) 42 (>60 ml/min/1.73 sqM); Albumin 4.9 g/dL (3.5-5.0); Alcohol <10 mg/dL; Alkaline Phosphatase 225 U/L (38-126); Blood Urea Nitrogen 15 mg/dL (7-17); Calcium 11.9 mg/dL (8.4-10.2); Chloride 102 mmol/L (98-107); Creatine Kinase 129 U/L (30-135); Glucose 178 mg/dL (74-99); Non-African American GFR(CKD) 37 (>60 ml/min/1.73 sqM); Potassium 4.6 mmol/L (3.5-5.1); Salicylate <1.0 mg/dL; Sodium 133 mmol/L (137-145); Total Bilirubin 1.1 mg/dL (0.2-1.3); Total Protein 7.9 g/dL (6.3-8.2)
[2023-07-19 09:33] LABS: Carbon Dioxide <5 mmol/L (22-30)
--- NOTE | 2023-07-19 09:57 | XR ---
EXAMINATION TYPE: XR chest 1V DATE OF EXAM: 07/19/2023 9:49 AM CLINICAL INDICATION:Female, 48 years old with history of ams; COMPARISON: None TECHNIQUE: XR chest 1V Frontal view of the chest. FINDINGS: Lungs/Pleura: There is no evidence of pleural effusion, focal consolidation, or pneumothorax. Pulmonary vascularity: Unremarkable. Heart/mediastinum: Cardiomediastinal silhouette is unremarkable. Musculoskeletal: No acute osseous pathology. Fixation hardware in the left glenoid. Other findings: None IMPRESSION: No acute cardiopulmonary disease/process.
[2023-07-19 10:39] LABS: ABG Base Excess -19.8 mmol/L; ABG PCO2 20 mmHg (35-45); ABG PH 7.21 (7.35-7.45); ABG PO2 126 mmHg (83-108); ABG TCO2 9 mmol/L (19-24); Allen Test Performed? Yes
[2023-07-19 10:43] LABS: ABG HCO3 8 mmol/L (21-25)
[2023-07-19] MEDS: SODIUM CHLORIDE 0.9% 1,000 ML IV SCH (10:44)
[2023-07-19] MEDS ORDERED: NALOXONE 0.4 MG/ML 1 ML VIAL IV PRN (11:16)
[2023-07-19] MEDS: SODIUM BICARB 8.4% 50 ML SYR (1 MEQ/ML) IV STA (11:32)
[2023-07-19] MEDS: DEXTROSE 5% IN WATER 1,000 ML with SODIUM BICARB (1 MEQ/ML) 100 ML IV SCH (11:32)
[2023-07-19] MEDS: DEXMEDETOMIDINE/0.9% NACL(PMX) 400 MCG in EMPTY BAG 1 BAG IV SCH (12:20)
[2023-07-19 12:23] LABS: Glucose,Whole Blood 173 mg/dL (70-110)
[2023-07-19 14:01] LABS: ALT 66 U/L (4-34); AST 43 U/L (14-36); African American GFR (CKD) 67 (>60 ml/min/1.73 sqM); Albumin 4.1 g/dL (3.5-5.0); Alkaline Phosphatase 177 U/L (38-126); Anion Gap 21 mmol/L; Blood Urea Nitrogen 15 mg/dL (7-17); Calcium 10.6 mg/dL (8.4-10.2); Carbon Dioxide 12 mmol/L (22-30); Chloride 103 mmol/L (98-107); Glucose 180 mg/dL (74-99); Non-African American GFR(CKD) 58 (>60 ml/min/1.73 sqM); Sodium 136 mmol/L (137-145); Total Bilirubin 1.2 mg/dL (0.2-1.3); Total Protein 6.7 g/dL (6.3-8.2)
[2023-07-19 14:17] LABS: HCT 44.5 % (34.0-46.0); HGB 14.8 gm/dL (11.4-16.0); MCH 32.3 pg (25.0-35.0); MCHC 33.4 g/dL (31.0-37.0); MCV 96.7 fL (80.0-100.0); Mean Platelet Volume 8.2; Platelet Count 249 k/uL (150-450); RDW 13.9 % (11.5-15.5); WBC 13.1 k/uL (3.8-10.6)
[2023-07-19 14:28] LABS: Potassium 3.9 mmol/L (3.5-5.1)
[2023-07-19] MEDS ORDERED: HALOPERIDOL LACTATE 5 MG/ML 1 ML VIAL IM PRN (14:45)
[2023-07-19] MEDS: LORazepam 2 MG/ML INJ IV PRN (15:03)
--- NOTE | 2023-07-19 15:25 | P.CNPUL ---
History of Present Illness Consult date: 07/19/23 Requesting physician: Pricila aNnce Reason for consult: other Chief complaint: Seroquel overdose History of present illness: This is a 48-year-old female with known history of COPD, depression, alcohol abuse, GERD, ADHD, former smoker, previous history of suicidal thoughts but without a plan, after ingesting a relatively high dose of Seroquel, exact amount is unknown, but she did have a bottle of Seroquel 300 mg each tablet, and this was filled 6 days ago for 30 days. And this was found to have only few tablets and it today. Patient was brought into the ER with mental status changes, allyu ameena, and in the ER she was noted to be extremely restless and agitated. I was notified about this patient, accepted the patient to the ICU, reviewed the patient's ABG and recommended starting the patient on sodium bicarb drip. In the meantime I recommended Precedex drip, and after I saw the patient in the ICU, she will be receiving Ativan 1 mg every 4 hours as needed, will also recommend Haldol if necessary. Patient is not a great historian, she seems to be confused, restless and agitated in bed. But could not give any adequate history. Labs were reviewed patient had a bit of leukocytosis with WBC count of 15.1 hemoglobin 16.7. ABG on room air showed a pO2 of 120 pCO2 20 pH of 7.21.[facility] metabolic profile is normal renal profile showed a BUN of 15 and creatinine of 1.1 drug screen was positive for tricyclic antidepressants, benzodiazepines, and marijuana. But no alcohol and no acetaminophen Review of Systems ROS unobtainable: due to mental status Past Medical History Past Medical History: GERD/Reflux Additional Past Medical History / Comment(s): migraines,nodules on thyroid History of Any Multi-Drug Resistant Organisms: None Reported Past Surgical History: Cholecystectomy, Orthopedic Surgery Additional Past Surgical History / Comment(s): hand surg., bankart procedure left shoulder, left ulnar nerve surgery Past Anesthesia/Blood Transfusion Reactions: No Reported Reaction Past Psychological History: ADD/ADHD, Depression Smoking Status: Current every day smoker Past Alcohol Use History: Abuse, Daily, Heavy Past Drug Use History: Marijuana - Past Family History Father Family Medical History: Cancer Additional Family Medical History / Comment(s): Esophageal cancer Mother Family Medical History: Thyroid Disorder Additional Family Medical History / Comment(s): depression Medications and Allergies Home Medications Medication Instructions Recorded Confirmed Type SUMAtriptan succinate [Imitrex] 50 mg PO BID PRN 10/17/20 07/19/23 History Albuterol Sulfate [Albuterol 2 puff PO RT-Q4H PRN 07/19/23 07/19/23 History Sulfate Hfa] Metoprolol Succinate (ER) [Toprol 50 mg PO DAILY 07/19/23 07/19/23 History Xl] Ondansetron [Zofran] 4 mg PO Q8HR PRN 07/19/23 07/19/23 History QUEtiapine FUMARATE [SEROquel] 150 mg PO HS 07/19/23 07/19/23 History Rimegepant Sulfate [Nurtec Odt] 75 mg PO DAILY PRN 07/19/23 07/19/23 History Vortioxetine Hydrobromide 20 mg PO DAILY 07/19/23 07/19/23 History [Trintellix] rOPINIRole HCL [Requip] 0.5 mg PO HS 07/19/23 07/19/23 History Allergies Allergy/AdvReac Type Severity Reaction Status Date / Time No Known Allergies Allergy Verified 07/19/23 10:39 Physical Exam Vitals: Vital Signs Temp Pulse Resp BP Pulse Ox 07/19/23 15:00 71 19 143/96 98 07/19/23 14:30 71 21 152/105 98 07/19/23 14:00 75 14 146/92 98 07/19/23 13:45 78 23 149/93 99 07/19/23 13:30 76 19 132/106 99 07/19/23 13:15 74 15 145/97 99 07/19/23 13:00 80 21 156/97 98 07/19/23 12:45 92 18 156/120 99 07/19/23 12:30 96 28 H 142/103 100 07/19/23 12:16 96.5 F L 89 21 98 07/19/23 11:30 86 20 163/94 100 07/19/23 09:54 92 07/19/23 07:23 96.9 F L 86 18 126/96 100 Intake and Output 07/19/23 07/19/23 07/19/23 06:59 14:59 22:59 Intake Total 300 133.574 Balance 300 133.574 Intake: IV 300 125 Dextrose 5% in Water 1, 300 125 000 ml @ 100 mls/hr IV . Q11H BRODY with Sodium Bicarb (1 Meq/ml) 100 ml Rx#:[id number] Intake, IV Titration 8.574 Amount Dexmedetomidine/0.9% NaCl 8.574 (Pmx) 400 mcg In Empty Bag 1 bag @ 0.2 MCG/KG/HR 3.062 mls/hr IV .Q24H BRODY Rx#:[id number] Other: # Voids 0 0 Weight 61.235 kg General: Reveals a 48-year-old female restless agitated in bed, patient has soft restraints, not in any respiratory distress Skin: Skin is warm and dry and no rashes or lesions are noted. Eye: Pupils are equal, round and reactive to light, extra-ocular movements are intact; there is normal conjunctiva bilaterally. Ears, nose, mouth and throat: Dry mucous membranes otherwise negative. Neck: Supple no neck masses no JVD no stridor Cardiovascular: Normal S1-S2, no S3 gallop.. Respiratory: Clear bilaterally symmetrical chest expansion no crackles rhonchi or wheezes Gastrointestinal: Soft, non-distended, non-tender abdomen without masses or organomegaly noted. There is no rebound or guarding present. Bowel sounds are unremarkable. Musculoskeletal: Normal ROM, no tenderness, There is no pedal edema. There is no calf tenderness or swelling. No cords were appreciated. Neurological: Patient opens her eyes, does not follow any instructions, seems to be quite confused, and intermittently restless and agitated. Psychiatric: Not fully assessed. Patient is agitated and restless Results - Laboratory Findings CBC and BMP: 07/19/23 13:15 07/19/23 13:00 ABG ABG pH 7.21 (7.35-7.45) L 07/19/23 10:37 ABG pCO2 20 mmHg (35-45) L 07/19/23 10:37 ABG pO2 126 mmHg (83-108) H 07/19/23 10:37 ABG O2 Saturation 98.0 % (94-97) H 07/19/23 10:37 Abnormal lab findings: Abnormal Labs 07/19/23 07/19/23 07/19/23 07:37 07:37 07:37 WBC 15.1 H Hgb 16.7 H Hct 52.3 H Neutrophils # 13.7 H Lymphocytes # 0.4 L ABG pH ABG pCO2 ABG pO2 ABG HCO3 ABG Total CO2 ABG O2 Saturation Sodium 133 L Carbon Dioxide <5 L* Creatinine 1.63 H Glucose 178 H POC Glucose (mg/dL) Calcium 11.9 H AST 46 H ALT 79 H Alkaline Phosphatase 225 H Urine Appearance Cloudy H Urine Protein 2+ H Urine Glucose (UA) Trace H Urine Ketones 4+ H Urine Blood Moderate H Urine Bilirubin 2+ H Urine WBC 6 H Urine WBC Clumps Few H Urine Bacteria Rare H Urine Mucus Rare H U Tricyclic Antidepress Detected H U Benzodiazepines Scrn Detected H U Marijuana (THC) Screen Detected H 07/19/23 07/19/23 07/19/23 10:37 12:21 13:00 WBC Hgb Hct Neutrophils # Lymphocytes # ABG pH 7.21 L ABG pCO2 20 L ABG pO2 126 H ABG HCO3 8 L* ABG Total CO2 9 L ABG O2 Saturation 98.0 H Sodium 136 L Carbon Dioxide 12 L Creatinine 1.11 H Glucose 180 H POC Glucose (mg/dL) 173 H Calcium 10.6 H AST 43 H ALT 66 H Alkaline Phosphatase 177 H Urine Appearance Urine Protein Urine Glucose (UA) Urine Ketones Urine Blood Urine Bilirubin Urine WBC Urine WBC Clumps Urine Bacteria Urine Mucus U Tricyclic Antidepress U Benzodiazepines Scrn U Marijuana (THC) Screen 07/19/23 13:15 WBC 13.1 H Hgb Hct Neutrophils # Lymphocytes # ABG pH ABG pCO2 ABG pO2 ABG HCO3 ABG Total CO2 ABG O2 Saturation Sodium Carbon Dioxide Creatinine Glucose POC Glucose (mg/dL) Calcium AST ALT Alkaline Phosphatase Urine Appearance Urine Protein Urine Glucose (UA) Urine Ketones Urine Blood Urine Bilirubin Urine WBC Urine WBC Clumps Urine Bacteria Urine Mucus U Tricyclic Antidepress U Benzodiazepines Scrn U Marijuana (THC) Screen - Diagnostic Findings Chest x-ray: image reviewed (Normal chest x-ray.) Additional studies: CT of chest and cervical spine showed no intracranial process and no cervical spine fracture. Assessment and Plan Assessment: Impression: Acute Seroquel overdose, most likely intentional and considered a suicidal attempt. History of depression and history of suicidal thoughts History of alcohol abuse History of GERD Benign essential hypertension History of COPD, presently inactive History of migraine cephalgia. History of ADHD. Recommendation: Continue present supportive care measures Continue to monitor in the ICU Continue to follow the recommendations of poison control. Continue bicarb drip for now. Continue IV fluids Suicidal precautions GI and DVT prophylaxis Continue Precedex and Ativan for extreme agitation Placed on CIWA protocol, patient has not had a drink in the last 4 days supposedly Will continue to follow. Psychiatric consultation in a.m. Patient is critically ill. Time with Patient: Greater than 30
[2023-07-19] MEDS: PANTOPRAZOLE 40 MG/10 ML VIAL IVP SCH (17:34)
[2023-07-19] MEDS: THIAMINE 100 MG/ML 2 ML VIAL IM STA (17:34)
[2023-07-19 22:06] LABS: ALT 61 U/L (4-34); AST 35 U/L (14-36); African American GFR (CKD) >90 (>60 ml/min/1.73 sqM); Alkaline Phosphatase 192 U/L (38-126); Anion Gap 7 mmol/L; Blood Urea Nitrogen 13 mg/dL (7-17); Calcium 10.2 mg/dL (8.4-10.2); Carbon Dioxide 30 mmol/L (22-30); Chloride 97 mmol/L (98-107); Glucose 147 mg/dL (74-99); Non-African American GFR(CKD) 78 (>60 ml/min/1.73 sqM); Sodium 134 mmol/L (137-145); Total Protein 6.5 g/dL (6.3-8.2)
[2023-07-19 22:09] LABS: Potassium 2.5 mmol/L (3.5-5.1)
[2023-07-19] MEDS ORDERED: Potassium Replacement Protocol 1 EACH MISC MISCELLANE PRN (22:12)
[2023-07-19] MEDS: POTASSIUM CHLORIDE ER 20 MEQ TAB.ER PO SCH (22:30)
[2023-07-19] MEDS: ACETAMINOPHEN TAB 325 MG TAB PO PRN (23:56)
[2023-07-20] MEDS: SODIUM CHLORIDE 0.9% 1,000 ML IV SCH (00:31)
[2023-07-20] MEDS: CALCIUM CARBONATE 500 MG CHEWABLE PO ONE (01:29)
[2023-07-20 03:54] LABS: Basophils % (A) 0 %; Eosinophils # (A) 0.1 k/uL (0-0.7); Eosinophils % (A) 1 %; HCT 40.9 % (34.0-46.0); HGB 13.8 gm/dL (11.4-16.0); Lymphocytes # (A) 0.6 k/uL (1.0-4.8); Lymphocytes % (A) 6 %; MCH 32.4 pg (25.0-35.0); MCHC 33.7 g/dL (31.0-37.0); MCV 96.3 fL (80.0-100.0); Mean Platelet Volume 7.5; Monocytes # (A) 0.6 k/uL (0-1.0); Monocytes % (A) 7 %; Neutrophils # (A) 7.7 k/uL (1.3-7.7); Neutrophils % (A) 85 %; Platelet Count 204 k/uL (150-450); RBC 4.24 m/uL (3.80-5.40); RDW 13.9 % (11.5-15.5)
[2023-07-20 04:07] LABS: African American GFR (CKD) >90 (>60 ml/min/1.73 sqM); Anion Gap 9 mmol/L; Blood Urea Nitrogen 13 mg/dL (7-17); Calcium 9.8 mg/dL (8.4-10.2); Carbon Dioxide 24 mmol/L (22-30); Chloride 101 mmol/L (98-107); Glucose 132 mg/dL (74-99); Non-African American GFR(CKD) >90 (>60 ml/min/1.73 sqM); Potassium 3.5 mmol/L (3.5-5.1); Sodium 134 mmol/L (137-145)
[2023-07-20] MEDS: POTASSIUM CHLORIDE ER 20 MEQ TAB.ER PO SCH (04:50)
[2023-07-20] MEDS: NICOTINE 14MG/24HR PATCH TRANSDERM SCH (06:06)
[2023-07-20] MEDS: ENOXAPARIN 40 MG/0.4 ML SYRINGE SQ SCH (08:59)
[2023-07-20] MEDS: THIAMINE 100 MG TAB PO SCH (09:00)
[2023-07-20] MEDS: CALCIUM CARBONATE 500 MG CHEWABLE PO PRN (09:01)
[2023-07-20 11:44] VITALS: BMI 23.3
--- NOTE | 2023-07-20 13:09 | P.PN ---
Subjective Progress Note Date: 07/20/23 Principal diagnosis: Seroquel overdose This is a 48-year-old female with known history of COPD, depression, alcohol abuse, GERD, ADHD, former smoker, previous history of suicidal thoughts but without a plan, after ingesting a relatively high dose of Seroquel, exact amount is unknown, but she did have a bottle of Seroquel 300 mg each tablet, and this was filled 6 days ago for 30 days. And this was found to have only few tablets and it today. Patient was brought into the ER with mental status changes, confusion, and in the ER she was noted to be extremely restless and agitated. I was notified about this patient, accepted the patient to the ICU, reviewed the patient's ABG and recommended starting the patient on sodium bicarb drip. In the meantime I recommended Precedex drip, and after I saw the patient in the ICU, she will be receiving Ativan 1 mg every 4 hours as needed, will also recommend Haldol if necessary. Patient is not a great historian, she seems to be confused, restless and agitated in bed. But could not give any adequate history. Labs were reviewed patient had a bit of leukocytosis with WBC count of 15.1 hemoglobin 16.7. ABG on room air showed a pO2 of 120 pCO2 20 pH of 7.21.Basic metabolic profile is normal renal profile showed a BUN of 15 and creatinine of 1.1 drug screen was positive for tricyclic antidepressants, benzodiazepines, and marijuana. But no alcohol and no acetaminophen Patient was reevaluated today on 07/20/2023, patient remains in the ICU, she is definitely more awake today, she is alert oriented x 3, does not seem to be in any distress. Patient is off Precedex, she is very calm, she has a sitter at bedside. Her bicarb drip was discontinued last night, bicarb level was as high as 3 0 last night, patient is doing great. Today the patient tells me that she never intended to commit suicide, although she had previous thoughts in the past about committing suicide. And she denied taking an extensive dose of Seroquel. At any rate patient is alert and oriented x 3, does not seem to be experiencing any symptoms. And I am planning a psychiatric consultation on this patient today, and transferring the patient to a regular medical floor. If cleared by psychiatry, patient could be considered for discharge planning. Meantime continue suicidal precautions, and continue sitter at bedside Objective - Vital Signs Vital signs: Vital Signs Temp 98.2 F 07/20/23 08:00 Pulse 96 07/20/23 11:00 Resp 14 07/20/23 11:00 BP 113/64 07/20/23 11:00 Pulse Ox 99 07/20/23 11:00 FiO2 Intake & Output 07/19/23 07/20/23 07/20/23 18:59 06:59 18:59 Intake Total 633.986 8631.552 550 Output Total 825 680 200 Balance 24.551 668.552 350 Weight 61.235 kg 63.7 kg 63.7 kg Intake: IV 800 1225 500 Dextrose 5% in Water 1, 800 625 000 ml @ 125 mls/hr IV . Q8H48M BRODY with Sodium Bicarb (1 Meq/ml) 100 ml Rx#:[id number] Sodium Chloride 0.9% 1, 600 500 000 ml @ 100 mls/hr IV . Q10H BRODY Rx#:[id number] Intake, IV Titration 49.551 123.552 Amount Dexmedetomidine/0.9% NaCl 49.551 123.552 (Pmx) 400 mcg In Empty Bag 1 bag @ 0.2 MCG/KG/HR 3.062 mls/hr IV .Q24H BRODY Rx#:[id number] Oral 50 Output: Urine 825 680 200 Other: Voiding Method Indwelling Catheter Indwelling Catheter Indwelling Catheter # Voids 0 - Exam General: Reveals a 48-year-old female, pleasant in no distress, on room air Skin: Skin is warm and dry and no rashes or lesions are noted. Eye: Pupils are equal, round and reactive to light, extra-ocular movements are intact; there is normal conjunctiva bilaterally. Ears, nose, mouth and throat: Dry mucous membranes otherwise negative. Neck: Supple no neck masses no JVD no stridor Cardiovascular: Normal S1-S2, no S3 gallop.. Respiratory: Clear bilaterally symmetrical chest expansion no crackles rhonchi or wheezes Gastrointestinal: Soft, non-distended, non-tender abdomen without masses or organomegaly noted. There is no rebound or guarding present. Bowel sounds are unremarkable. Musculoskeletal: Normal ROM, no tenderness, There is no pedal edema. There is no calf tenderness or swelling. No cords were appreciated. Psychiatric: Normal mood affect and normal mental status examination Neurologic: Alert oriented x 3 no gross focal neurologic deficit - Labs CBC & Chem 7: 07/20/23 03:22 07/20/23 09:06 Labs: Abnormal Lab Results - Last 24 Hours (Table) 07/19/23 07/19/23 07/19/23 Range/Units 07:37 13:00 13:15 WBC 13.1 H (3.8-10.6) k/uL Lymphocytes # (1.0-4.8) k/uL Sodium 136 L (137-145) mmol/L Potassium (3.5-5.1) mmol/L Chloride (98-107) mmol/L Carbon Dioxide 12 L (22-30) mmol/L Creatinine 1.11 H (0.52-1.04) mg/dL Glucose 180 H (74-99) mg/dL Osmolality 300 H (275-295) mOsm/kg Calcium 10.6 H (8.4-10.2) mg/dL AST 43 H (14-36) U/L ALT 66 H (4-34) U/L Alkaline Phosphatase 177 H (38-126) U/L 07/19/23 07/20/23 07/20/23 Range/Units 21:45 03:22 03:22 WBC (3.8-10.6) k/uL Lymphocytes # 0.6 L (1.0-4.8) k/uL Sodium 134 L 134 L (137-145) mmol/L Potassium 2.5 L* (3.5-5.1) mmol/L Chloride 97 L (98-107) mmol/L Carbon Dioxide (22-30) mmol/L Creatinine (0.52-1.04) mg/dL Glucose 147 H 132 H (74-99) mg/dL Osmolality (275-295) mOsm/kg Calcium (8.4-10.2) mg/dL AST (14-36) U/L ALT 61 H (4-34) U/L Alkaline Phosphatase 192 H (38-126) U/L Assessment and Plan Assessment: Impression: Acute Seroquel overdose, most likely intentional and considered a suicidal attempt. Although the patient denies committing suicide and denies taking that many pills of Seroquel History of depression and history of suicidal thoughts History of alcohol abuse History of GERD Benign essential hypertension History of COPD, presently inactive History of migraine cephalgia. History of ADHD. Recommendation: Continue present supportive care measures Psychiatric consultation Transfer to medical surgical floor unless the psychiatrist would recommend admission to psychiatry. Suicidal precautions GI and DVT prophylaxis Placed on CIWA protocol, for alcohol withdrawal potential patient was on Precedex yesterday which has been Will continue to follow. Time with Patient: Less than 30
[2023-07-20] MEDS: chlordiazePOXIDE 25 MG CAP PO SCH (17:59)
--- NOTE | 2023-07-20 18:11 | P.HPIM ---
History of Present Illness H&P Date: 07/19/23 Chief Complaint: Severe metabolic acidosis/Seroquel overdose HISTORY OF PRESENT ILLNESS: This is a 48-year-old female with a previous medical history significant for anxiety, major depressive disorder, chronic alcohol use and dependence, has been on naltrexone 50 mg once every day, attention deficit disorder, chronic insomnia due to underlying medical condition and possible due to behavior disturbances, apparently the patient was last seen in my office about greater than a year ago, and she has been noncompliant with her office visit as the patient has lost her insurance after she left Dr. Colmenares's office as her workplace, and patient has been feeling more depressed recently according to her cousin who was at the bedside, she stated that the patient has been drinking at least half 1/5 of vodka on a daily basis, and she has been buying some Adderall from the street along with her current medications, she has been trying to come off the alcohol on her own without the help of medical and scientific illustrator, patient has been seen in the past by alcohol rehabilitation many years ago without any success, patient apparently was found incoherent with mental status changes sitting on the floor after she has fallen at least multiple times due to multiple bruises in both lower extremities, EMS was called after they found that the bottle of her Seroquel XR 300 mg was missing the pills and the patient was not able to give any information at that time, we assume that the patient has ingested 15 of her Seroquel XR and the patient was sent into the emergency department at [facility], she was seen in the ER, had a battery of laboratory evaluation that showed evidence of severe metabolic acidosis with bicarb level of 12, her lactic acid was negative, her CPK was normal, the patient was started on sodium bicarb drip and she was admitted to the intensive care unit, she was placed on Precedex drip as well, and she was seen in consultation by pulmonary/critical care, and she will be seen in consultation by psychiatry, she was placed in one-on-one suicide precaution, patient did have a soft restraint in both upper extremities and soft restraint around her torso, patient cousin was at the bedside and she was updated about her current condition. REVIEW OF SYSTEMS: Constitutional: No documented fever, no chills, no night sweats. No weight change. positive for weakness, positive for lethargy. No daytime sleepiness. EENT: No headache. No blurred vision or double vision, no loss of vision. No loss of Hearing, no ringing in the ears, no dizziness. No nasal drainage or congestion. No epistaxis. No sore throat. Lungs: No shortness of breath, no cough, no sputum production. No wheezing. Reports dyspnea with activity. Cardiovascular: No chest pain, no lower extremity edema. No palpitations. No paroxysmal nocturnal dyspnea. No orthopnea. No lightheadedness or dizziness. No syncopal episodes. Abdominal: Reports abdominal pain. No nausea, vomiting. No diarrhea. No constipation. No bloody or tarry stools reports loss of appetite. Genitourinary: No dysuria, increased frequency, urgency. No urinary retention. Musculoskeletal: No myalgias. No muscle weakness, no gait dysfunction, no frequent falls. positive for back pain. No neck pain. Integumentary: No wounds, no lesions. No rash or pruritus. No unusual bruising. No change in hair or nails. Neurologic: No aphasia. No facial droop. positive for change in mentation. No head injury. No headache. No paralysis. No paresthesia. Psychiatric: positive for depression, anxiety and suicidal ideation Endocrine: No abnormal blood sugars. No weight change. PAST MEDICAL HISTORY: Attention deficit disorder Restless leg syndrome Chronic alcohol use and dependence Major depressive disorder Anxiety disorder PAST SURGICAL HISTORY: Cholecystectomy 2017 EGD and colonoscopy 2017 Left shoulder repair due to chronic dislocation 2019 SOCIAL HISTORY: Patient used to smoke about a pack every day she started the age of 19 and she quit in 2017 she does drink half 1/5 of vodka on a daily basis, and she is trying to get off the alcohol, she does not use any drugs, however she buys Adderall from street according to her cousin. FAMILY HISTORY: Father at age of 64 from esophageal cancer and melanoma he also had history of diabetes and hypertension, mother is 75-year-old with history of ovarian cancer with mets to the liver, also hypertension, hypothyroidism, and depression, patient has 1 brother who is 50-year-old who is healthy. PHYSICAL EXAMINATION: General: 48-year-old female laying down in bed appears to be encephalopathic HEENT: Head is atraumatic, normocephalic, pupils were equal round reactive to light and recommendation, extraocular muscle movement were intact, sclera nonicteric, conjunctivae were pale, mucous membranes of the mouth are somewhat dry. Neck: Supple, no JVP, normal carotid upstroke bilaterally, no lymphadenopathy. Chest: Decreased breath sounds at the bases, few rhonchi, no expiratory wheezes, no chest wall tenderness, no intercostal retractions. Heart: First heart sound is normal, second heart sound is normal there os no gallop or murmur Abdomen: Soft, nontender, nondistended, positive bowel sounds. Extremities: There is no edema no calf tenderness DP +2 bilaterally. Neurologic examination: Patient is stuporous, opens her eyes in response to verbal stimuli cranial nerves II-12 appear grossly intact, muscle power were 4 out of 5 in upper extremities and 5 out of 5 in bilateral lower extremities, deep tendon reflexes normal bilaterally, no clonus or rigidity ASSESSMENT AND PLAN: 1. Metabolic encephalopathy likely due to Seroquel overdose patient had consumed at least 10 Seroquel XR 300 mg tablets, patient was admitted to the intensive care unit, she was started on sodium bicarb and drip, we will monitor the patient input and output and daily weight, monitor the patient CPK, monitor the patient liver function test as well as kidney function test, continue Precedex drip as ordered by card punching machine operator, other recommendation as per [facility]. 2. Suicidal attempt. Keep the patient in 1 on 1 sitter, we will consult psychiatry over the next 24 hours when the patient is medically stable. Patient will likely require to go to mental health unit for further evaluation of her major depressive disorder. 3. Severe metabolic acidosis . Patient was started on sodium bicarbonate drip, monitor the patient's CMP over the next 24 hours, patient lactic acid is negative, patient CPK is normal at 129. No evidence of rhabdomyolysis. 4. Attention deficit disorder. Patient has been getting Adderall on and off, she used to be on Concerta but she has not been in the office for more than a year. 5. Chronic alcohol use and dependence. Last alcoholic drink was about 4 days ago. Monitor for alcohol withdrawal start the patient on CIWA protocol start the patient on B1 100 mg once every day, B12, and folic acid along with multivitamin. 6. Major depressive disorder with suicidal thoughts and ideation. We will consult psychiatry for further recommendation. 7. Anxiety disorder. Patient will be evaluated by psychiatry tomorrow morning. 8. Restless leg syndrome. Hold off ropinirole for now. 9. Multiple bruises in both lower extremities secondary to a fall due to drug overdose. Patient will be monitored in the ICU for the next 24 hours. 10. DVT prophylaxis. Lovenox 40 mg subcutaneous every 24 hours. 11. GI prophylaxis. Continue patient on Protonix 40 mg IV push every 24 hours. 12. Admit to inpatient. Estimated length of stay 2 midnights. 13. Patient is full code. Past Medical History Past Medical History: GERD/Reflux Additional Past Medical History / Comment(s): migraines,nodules on thyroid History of Any Multi-Drug Resistant Organisms: None Reported Past Surgical History: Cholecystectomy, Orthopedic Surgery Additional Past Surgical History / Comment(s): hand surg., bankart procedure left shoulder, left ulnar nerve surgery Past Anesthesia/Blood Transfusion Reactions: No Reported Reaction Past Psychological History: ADD/ADHD, Depression Smoking Status: Current every day smoker Past Alcohol Use History: Abuse, Daily, Heavy Past Drug Use History: Marijuana - Past Family History Father Family Medical History: Cancer Additional Family Medical History / Comment(s): Esophageal cancer Mother Family Medical History: Thyroid Disorder Additional Family Medical History / Comment(s): depression Medications and Allergies Home Medications Medication Instructions Recorded Confirmed Type SUMAtriptan succinate [Imitrex] 50 mg PO BID PRN 10/17/20 07/19/23 History Albuterol Sulfate [Albuterol 2 puff PO RT-Q4H PRN 07/19/23 07/19/23 History Sulfate Hfa] Metoprolol Succinate (ER) [Toprol 50 mg PO DAILY 07/19/23 07/19/23 History Xl] Ondansetron [Zofran] 4 mg PO Q8HR PRN 07/19/23 07/19/23 History QUEtiapine FUMARATE [SEROquel] 150 mg PO HS 07/19/23 07/19/23 History Rimegepant Sulfate [Nurtec Odt] 75 mg PO DAILY PRN 07/19/23 07/19/23 History Vortioxetine Hydrobromide 20 mg PO DAILY 07/19/23 07/19/23 History [Trintellix] rOPINIRole HCL [Requip] 0.5 mg PO HS 07/19/23 07/19/23 History Allergies Allergy/AdvReac Type Severity Reaction Status Date / Time No Known Allergies Allergy Verified 07/19/23 10:39 Physical Exam Vitals: Vital Signs Temp Pulse Resp BP Pulse Ox 07/19/23 18:00 67 17 146/85 97 07/19/23 17:30 65 17 132/81 98 07/19/23 17:00 65 17 134/86 97 07/19/23 16:30 69 19 128/87 97 07/19/23 16:00 97.0 F L 67 19 121/84 97 07/19/23 15:30 69 19 146/91 97 07/19/23 15:00 71 19 143/96 98 07/19/23 14:30 71 21 152/105 98 07/19/23 14:00 75 14 146/92 98 07/19/23 13:45 78 23 149/93 99 07/19/23 13:30 76 19 132/106 99 07/19/23 13:15 74 15 145/97 99 07/19/23 13:00 80 21 156/97 98 07/19/23 12:45 92 18 156/120 99 07/19/23 12:30 96 28 H 142/103 100 07/19/23 12:16 96.5 F L 89 21 98 07/19/23 11:30 86 20 163/94 100 07/19/23 09:54 92 07/19/23 07:23 96.9 F L 86 18 126/96 100 Intake and Output 07/19/23 07/19/23 07/19/23 06:59 14:59 22:59 Intake Total 300 549.551 Output Total 825 Balance 300 -275.449 Intake: IV 300 500 Dextrose 5% in Water 1, 300 500 000 ml @ 125 mls/hr IV . Q8H48M BRODY with Sodium Bicarb (1 Meq/ml) 100 ml Rx#:[id number] Intake, IV Titration 49.551 Amount Dexmedetomidine/0.9% NaCl 49.551 (Pmx) 400 mcg In Empty Bag 1 bag @ 0.2 MCG/KG/HR 3.062 mls/hr IV .Q24H BRODY Rx#:[id number] Output: Urine 825 Other: Voiding Method Bedpan Indwelling Catheter # Voids 0 0 Weight 61.235 kg Results CBC & Chem 7: 07/20/23 03:22 07/20/23 09:06 Labs: Abnormal Lab Results - Last 24 Hours (Table) 07/19/23 07/19/23 07/19/23 Range/Units 07:37 07:37 07:37 WBC 15.1 H (3.8-10.6) k/uL Hgb 16.7 H (11.4-16.0) gm/dL Hct 52.3 H (34.0-46.0) % Neutrophils # 13.7 H (1.3-7.7) k/uL Lymphocytes # 0.4 L (1.0-4.8) k/uL ABG pH (7.35-7.45) ABG pCO2 (35-45) mmHg ABG pO2 (83-108) mmHg ABG HCO3 (21-25) mmol/L ABG Total CO2 (19-24) mmol/L ABG O2 Saturation (94-97) % Sodium 133 L (137-145) mmol/L Carbon Dioxide <5 L* (22-30) mmol/L Creatinine 1.63 H (0.52-1.04) mg/dL Glucose 178 H (74-99) mg/dL POC Glucose (mg/dL) (70-110) mg/dL Calcium 11.9 H (8.4-10.2) mg/dL AST 46 H (14-36) U/L ALT 79 H (4-34) U/L Alkaline Phosphatase 225 H (38-126) U/L Urine Appearance Cloudy H (Clear) Urine Protein 2+ H (Negative) Urine Glucose (UA) Trace H (Negative) Urine Ketones 4+ H (Negative) Urine Blood Moderate H (Negative) Urine Bilirubin 2+ H (Negative) Urine WBC 6 H (0-5) /hpf Urine WBC Clumps Few H (None) /hpf Urine Bacteria Rare H (None) /hpf Urine Mucus Rare H (None) /hpf U Tricyclic Antidepress Detected H (NotDetected) U Benzodiazepines Scrn Detected H (NotDetected) U Marijuana (THC) Screen Detected H (NotDetected) 07/19/23 07/19/23 07/19/23 Range/Units 10:37 12:21 13:00 WBC (3.8-10.6) k/uL Hgb (11.4-16.0) gm/dL Hct (34.0-46.0) % Neutrophils # (1.3-7.7) k/uL Lymphocytes # (1.0-4.8) k/uL ABG pH 7.21 L (7.35-7.45) ABG pCO2 20 L (35-45) mmHg ABG pO2 126 H (83-108) mmHg ABG HCO3 8 L* (21-25) mmol/L ABG Total CO2 9 L (19-24) mmol/L ABG O2 Saturation 98.0 H (94-97) % Sodium 136 L (137-145) mmol/L Carbon Dioxide 12 L (22-30) mmol/L Creatinine 1.11 H (0.52-1.04) mg/dL Glucose 180 H (74-99) mg/dL POC Glucose (mg/dL) 173 H (70-110) mg/dL Calcium 10.6 H (8.4-10.2) mg/dL AST 43 H (14-36) U/L ALT 66 H (4-34) U/L Alkaline Phosphatase 177 H (38-126) U/L Urine Appearance (Clear) Urine Protein (Negative) Urine Glucose (UA) (Negative) Urine Ketones (Negative) Urine Blood (Negative) Urine Bilirubin (Negative) Urine WBC (0-5) /hpf Urine WBC Clumps (None) /hpf Urine Bacteria (None) /hpf Urine Mucus (None) /hpf U Tricyclic Antidepress (NotDetected) U Benzodiazepines Scrn (NotDetected) U Marijuana (THC) Screen (NotDetected) 07/19/23 Range/Units 13:15 WBC 13.1 H (3.8-10.6) k/uL Hgb (11.4-16.0) gm/dL Hct (34.0-46.0) % Neutrophils # (1.3-7.7) k/uL Lymphocytes # (1.0-4.8) k/uL ABG pH (7.35-7.45) ABG pCO2 (35-45) mmHg ABG pO2 (83-108) mmHg ABG HCO3 (21-25) mmol/L ABG Total CO2 (19-24) mmol/L ABG O2 Saturation (94-97) % Sodium (137-145) mmol/L Carbon Dioxide (22-30) mmol/L Creatinine (0.52-1.04) mg/dL Glucose (74-99) mg/dL POC Glucose (mg/dL) (70-110) mg/dL Calcium (8.4-10.2) mg/dL AST (14-36) U/L ALT (4-34) U/L Alkaline Phosphatase (38-126) U/L Urine Appearance (Clear) Urine Protein (Negative) Urine Glucose (UA) (Negative) Urine Ketones (Negative) Urine Blood (Negative) Urine Bilirubin (Negative) Urine WBC (0-5) /hpf Urine WBC Clumps (None) /hpf Urine Bacteria (None) /hpf Urine Mucus (None) /hpf U Tricyclic Antidepress (NotDetected) U Benzodiazepines Scrn (NotDetected) U Marijuana (THC) Screen (NotDetected) Thrombosis Risk Factor Assmnt - Choose All That Apply Any of the Below Risk Factors Present?: Yes Each Factor Represents 1 point: Age 41-60 years Other Risk Factors: No Other congenital or acquired thrombophilia - If yes, enter type in comment: No Thrombosis Risk Factor Assessment Total Risk Factor Score: 1 Thrombosis Risk Factor Assessment Level: Low Risk
--- NOTE | 2023-07-20 18:16 | P.PN ---
Subjective Progress Note Date: 07/20/23 HISTORY OF PRESENT ILLNESS: This is a 48-year-old female with a previous medical history signif icant for anxiety, major depressive disorder, chronic alcohol use and dependence, has been on naltrexone 50 mg once every day, attention deficit disorder, chronic insomnia due to underlying medical condition and possible due to behavior disturbances, apparently the patient was last seen in my office about greater than a year ago, and she has been noncompliant with her office visit as the patient has lost her insurance after she left Dr. Colmenares's office as her workplace, and patient has been feeling more depressed recently according to her cousin who was at the bedside, she stated that the patient has been drinking at least half 1/5 of vodka on a daily basis, and she has been buying some Adderall from the street along with her current medications, she has been trying to come off the alcohol on her own without the help of manager medical affairs, patient has been seen in the past by alcohol rehabilitation many years ago without any success, patient apparently was found incoherent with me ntal status changes sitting on the floor after she has fallen at least multiple times due to multiple bruises in both lower extremities, EMS was called after they found that the bottle of her Seroquel XR 300 mg was missing the pills and the patient was not able to give any information at that time, we assume that the patient has ingested 15 of her Seroquel XR and the patient was sent into the emergency department at [facility], she was seen in the ER, had a battery of laboratory evaluation that showed evidence of severe metabolic acidosis with bicarb level of 12, her lactic acid was negative, her CPK was normal, the patient was started on sodium bicarb drip and she was admitted to [facility] intensive care unit, she was placed on Precedex drip as well, and she was seen in consultation by pulmonary/critical care, and she will be seen in consultation by psychiatry, she was placed in one-on-one suicide precaution, patient did have a soft restraint in both upper extremities and soft restraint around her torso, patient cousin was at the bedside and she was updated about her current condi tion. REVIEW OF SYSTEMS: Constitutional: No documented fever, no chills, no night sweats. No weight change. positive for weakness, negative for lethargy. No daytime sleepiness. EENT: No headache. No blurred vision or double vision, no loss of vision. No loss of Hearing, no ringing in the ears, no dizziness. No nasal drainage or congestion. No epistaxis. No sore throat. Lungs: No shortness of breath, no cough, no sputum production. No wheezing. Reports dyspnea with activity. Cardiovascular: No chest pain, no lower extremity edema. No palpitations. No paroxysmal nocturnal dyspnea. No orthopnea. No lightheadedness or dizziness. No syncopal episodes. Abdominal: Reports no abdominal pain. No nausea, vomiting. No diarrhea. No constipation. No bloody or tarry stools reports loss of appetite. Genitourinary: No dysuria, increased frequency, urgency. No urinary retention. Musculoskeletal: No myalgias. No muscle weakness, no gait dysfunction, no frequent falls. no back pain. No neck pain. Integumentary: No wounds, no lesions. No rash or pruritus. No unusual bruising. No change in hair or nails. Neurologic: No aphasia. No facial droop. positive for change in mentation. No head injury. No headache. No paralysis. No paresthesia. Psychiatric: positive for depression, anxiety and she denies suicidal ideation Endocrine: No abnormal blood sugars. No weight change. PHYSICAL EXAMINATION: General: 48-year-old female laying down in bed appears to be more awake HEENT: Head is atraumatic, normocephalic, pupils were equal round reactive to light and recommendation, extraocular muscle movement were intact, sclera nonicteric, conjunctivae were pale, mucous membranes of the mouth are somewhat dry. Neck: Supple, no JVP, normal carotid upstroke bilaterally, no lymphadenopathy. Chest: Decreased breath sounds at the bases, few rhonchi, no expiratory wheezes, no chest wall tenderness, no intercostal retractions. Heart: First heart sound is normal, second heart sound is normal there os no gallop or murmur Abdomen: Soft, nontender, nondistended, positive bowel sounds. Extremities: There is no edema no calf tenderness DP +2 bilaterally. Neurologic examination: Patient is awake alert and oriented x 3, cranial nerves II-12 appear grossly intact, muscle power were 4 out of 5 in upper extremities and 5 out of 5 in bilateral lower extremities, deep tendon reflexes normal bilaterally, no clonus or rigidity ASSESSMENT AND PLAN: 1. Metabolic encephalopathy likely due to Seroquel overdose patient had consumed at least 10 Seroquel XR 300 mg tablets, patient was admitted to the intensive care unit, doing much better today, she will be taken off sodium bicarbonate drip, she will was taken off Precedex drip as well, use Ativan only as needed for agitation. Awake psychiatry evaluation for possible suicidal ideation and suicide attempt. 2. Suicidal attempt. Keep the patient in 1 on 1 sitter, we will consult psychiatry over the next 24 hours when the patient is medically stable. Patient will likely require to go to mental health unit for further evaluation of her major depressive disorder. Patient declined being suicidal at this point in time. 3. Severe metabolic acidosis . Resolved patient was taken off sodium bicarbonate drip. 4. Attention deficit disorder. Patient has been getting Adderall on and off, she used to be on Concerta but she has not been in the office for more than a year. 5. Chronic alcohol use and dependence. Last alcoholic drink was about 4 days ago. Monitor for alcohol withdrawal start the patient on CIWA protocol start the patient on B1 100 mg once every day, B12, and folic acid along with multivitamin. 6. Major depressive disorder with suicidal thoughts and ideation. We will consult psychiatry for further recommendation. 7. Anxiety disorder. Patient will be evaluated by psychiatry tomorrow morning. 8. Restless leg syndrome. Hold off ropinirole for now. 9. Multiple bruises in both lower extremities secondary to a fall due to drug overdose. Patient will be monitored in the ICU for the next 24 hours. 10. DVT prophylaxis. Lovenox 40 mg subcutaneous every 24 hours. 11. GI prophylaxis. Continue patient on Protonix 40 mg IV push every 24 hours. 12. Prognosis continues to be guarded. Objective - Vital Signs Vital signs: Vital Signs Temp 98.2 F 07/20/23 08:00 Pulse 96 07/20/23 11:00 Resp 14 07/20/23 11:00 BP 113/64 07/20/23 11:00 Pulse Ox 99 07/20/23 11:00 FiO2 Intake & Output 07/19/23 07/20/23 07/20/23 18:59 06:59 18:59 Intake Total 405.893 9267.552 550 Output Total 825 680 200 Balance 24.551 668.552 350 Weight 61.235 kg 63.7 kg 63.7 kg Intake: IV 800 1225 500 Dextrose 5% in Water 1, 800 625 000 ml @ 125 mls/hr IV . Q8H48M BRODY with Sodium Bicarb (1 Meq/ml) 100 ml Rx#:[id number] Sodium Chloride 0.9% 1, 600 500 000 ml @ 100 mls/hr IV . Q10H BRODY Rx#:[id number] Intake, IV Titration 49.551 123.552 Amount Dexmedetomidine/0.9% NaCl 49.551 123.552 (Pmx) 400 mcg In Empty Bag 1 bag @ 0.2 MCG/KG/HR 3.062 mls/hr IV .Q24H BRODY Rx#:[id number] Oral 50 Output: Urine 825 680 200 Other: Voiding Method Indwelling Catheter Indwelling Catheter Indwelling Catheter # Voids 0 - Labs CBC & Chem 7: 07/20/23 03:22 07/20/23 09:06 Labs: Abnormal Lab Results - Last 24 Hours (Table) 07/19/23 07/19/23 07/19/23 Range/Units 07:37 13:00 13:15 WBC 13.1 H (3.8-10.6) k/uL Lymphocytes # (1.0-4.8) k/uL Sodium 136 L (137-145) mmol/L Potassium (3.5-5.1) mmol/L Chloride (98-107) mmol/L Carbon Dioxide 12 L (22-30) mmol/L Creatinine 1.11 H (0.52-1.04) mg/dL Glucose 180 H (74-99) mg/dL Osmolality 300 H (275-295) mOsm/kg Calcium 10.6 H (8.4-10.2) mg/dL AST 43 H (14-36) U/L ALT 66 H (4-34) U/L Alkaline Phosphatase 177 H (38-126) U/L 07/19/23 07/20/23 07/20/23 Range/Units 21:45 03:22 03:22 WBC (3.8-10.6) k/uL Lymphocytes # 0.6 L (1.0-4.8) k/uL Sodium 134 L 134 L (137-145) mmol/L Potassium 2.5 L* (3.5-5.1) mmol/L Chloride 97 L (98-107) mmol/L Carbon Dioxide (22-30) mmol/L Creatinine (0.52-1.04) mg/dL Glucose 147 H 132 H (74-99) mg/dL Osmolality (275-295) mOsm/kg Calcium (8.4-10.2) mg/dL AST (14-36) U/L ALT 61 H (4-34) U/L Alkaline Phosphatase 192 H (38-126) U/L
--- NOTE | 2023-07-20 20:14 | P.CN ---
Psychiatric Consult - . Consult date: 07/20/23 Consult:: 07/20/23 13:43 IDENTIFYING DATA: Patient is a single, unemployed, 48-year-old female, has no kids, currently lives alone in a house HPI: Patient presented to the hospital initially on 07/18 he was brought in by EMS after an overdose at home. Patient apparently was found in her bedroom by her cousin with a empty bottle of Seroquel and was fairly altered/confused. Patient's white count was elevated ANC was elevated LFTs were elevated as well. Urine drug screen is positive for TCA, benzodiazepines and THC. Blood alcohol level was negative. Patient was seen at the bedside and agreeable to speak to travel writer. She appeared to be fairly tremulous, states that she is feeling very anxious, tearful. She was endorsing severe depression. Claims that she knows that she is in [facility] she knows that it is July 2023 and knows her full name. She states that she was attempting to "detox from alcohol" at home on her own without coming to the hospital. States that she stopped trying to drink the alcohol and claims that "it did not work" and claims that she fell and hit her head and put a hole in the wall. States that she started hallucinating as well seeing things. States that her cousin found her and called EMS. She states that anxiety and depression have been significant, she is endorsing mild tremors at this time, states that her sleep and appetite have been poor. She was fairly tearful she was endorsing suicidal thoughts however no plan. Denies any homicidal ideations. She denies any cigarette use, states that she and has been drinking heavily about 2-3 drinks of vodka per day for the past 10 years or so. States that she smokes marijuana daily. PAST PSYCHIATRIC HISTORY: Patient states that she has been previously diagnosed with depression, anxiety, ADHD, and alcohol use disorder. She recalls previous to being prescribed Zoloft, Prozac, Lexapro, trazodone, Depakote, and Remeron. She reports her last psychiatric hospitalization was in October 2020 on the mental health unit. Currently she states that she is taking Seroquel and Trintellix. She reports that she follows at [facility] today. She reports one prior attempt at suicide in 2018 by cutting her wrist. PMH: as per ER note ALLERGIES: NO KNOWN DRUG ALLERGIES CHEMICAL DEPENDENCY HISTORY: as per HPI FAMILY PSYCHIATRIC/SUBSTANCE USE HISTORY: The patient reports that her maternal grandmother and her mother have been diagnosed with depression. She reports that her maternal aunt has been diagnosed with bipolar disorder and has also attempted suicide but not completed in the past. She reports multiple uncles and her brother has also suffered from alcohol use disorder. SOCIAL HISTORY: Patient was born and raised in [place], [place]. She is single, never , and has no children. She currently lives with her mother and stepfather. She completed community college. currebtly unemployed. She does report a history of legal problems including 2 DUIs, one in 2011 and the other in 2019. She reports that she was incarcerated for 108 days in 2019. She reports no current legal problems. She reports no history. She denies any significant history of trauma. MENTAL STATUS EXAM: General Appearance: Patient appears to be thin, stated age is alert, directable, and attempts to cooperate. Patient mildly disheveled appearance. Patient is fairly tearful and having tremors Behavior: Patient is laying in bed. Psychomotor activity slightly elevated. Eye contact is appropriate. Speech: Patient's speech is fluent and nonpressured. Spontaneous, tearful Mood/Affect: Patient reports their mood is depressed and anxious, affect is congruent and tearful. Suicidality/Homicidality: The patient does admit to suicidal ideation, denies any plan. denies any homicidal ideation, intention, and/or plan. Perceptions: Patient denies any visual hallucinations and denies any auditory hallucinations Though content/process: There is no evidence of any delusional thought content and thought process is linear and goal-directed. [place], evasive Memory and concentration: AOX3, grossly intact for the purposes of this session. Can spell "WORLD" backwards Judgment and insight: Poor IMPRESSIONS: Overdose on psychotropic medications Major depressive disorder, recurrent, severe Alcohol use disorder, severe dependence, currently in withdrawal Cannabis use disorder PLAN: -At this time patient DOES meet criteria for inpatient psychiatric admission. -Would recommend the following medication changes/additions: Will hold off on psychiatric medications until patient is medically cleared. At this time will start scheduled Librium 25 mg 3 times daily for alcohol withdrawal -CIWA protocol with PRN Ativan for alcohol withdrawal. Continue to monitor vital signs. -Continue 1:1 sitter for safety -Cannot leave AMA at this time. Patient will need a petition and certification if attempting to leave AMA. -When medically stable, patient is eligible for transfer to a psych bed when available. -Communicated plan to patient's nurse -Psychiatry will sign off at this time -Please contact with any questions. 07/20/23 20:06
[2023-07-21 06:59] LABS: Basophils % (A) 1 %; Eosinophils % (A) 1 %; HCT 40.8 % (34.0-46.0); HGB 13.6 gm/dL (11.4-16.0); Lymphocytes # (A) 1.4 k/uL (1.0-4.8); Lymphocytes % (A) 23 %; MCH 31.8 pg (25.0-35.0); MCHC 33.4 g/dL (31.0-37.0); Mean Platelet Volume 7.8; Monocytes # (A) 0.4 k/uL (0-1.0); Monocytes % (A) 6 %; Neutrophils # (A) 4.1 k/uL (1.3-7.7); Neutrophils % (A) 68 %; Platelet Count 224 k/uL (150-450); RDW 14.4 % (11.5-15.5)
[2023-07-21 07:12] LABS: African American GFR (CKD) >90 (>60 ml/min/1.73 sqM); Anion Gap 5 mmol/L; Blood Urea Nitrogen 8 mg/dL (7-17); Calcium 8.8 mg/dL (8.4-10.2); Carbon Dioxide 25 mmol/L (22-30); Chloride 106 mmol/L (98-107); Glucose 108 mg/dL (74-99); Non-African American GFR(CKD) >90 (>60 ml/min/1.73 sqM); Potassium 3.1 mmol/L (3.5-5.1); Sodium 136 mmol/L (137-145)
[2023-07-21] MEDS: ZINC OXIDE PASTE (Z-GUARD) 1 APPLIC TOPICAL PRN (07:42)
[2023-07-21] MEDS ORDERED: Potassium Replacement Protocol 1 EACH MISC MISCELLANE PRN (07:52)
[2023-07-21] MEDS: POTASSIUM CHLORIDE ER 20 MEQ TAB.ER PO SCH (08:09)
[2023-07-21] MEDS: IBUPROFEN 400 MG TAB PO PRN (09:03)
[2023-07-21] MEDS ORDERED: Magnesium Replacement Protocol 1 EACH MISC MISCELLANE PRN (09:18)
[2023-07-21] MEDS: MAGNESIUM SULFATE-D5W PMX 1 GM in DEXTROSE/WATER 1 100ML.BAG IVPB SCH (09:44)
--- NOTE | 2023-07-21 13:33 | P.PN ---
Subjective Progress Note Date: 07/21/23 Principal diagnosis: Seroquel overdose This is a 48-year-old female with known history of COPD, depression, alcohol abuse, GERD, ADHD, former smoker, previous history of suicidal thoughts but without a plan, after ingesting a relatively high dose of Seroquel, exact amount is unknown, but she did have a bottle of Seroquel 300 mg each tablet, and this was filled 6 days ago for 30 days. And this was found to have only few tablets and it today. Patient was brought into the ER with mental status changes, confusion, and in the ER she was noted to be extremely restless and agitated. I was notified about this patient, accepted the patient to the ICU, reviewed the patient's ABG and recommended starting the patient on sodium bicarb drip. In the meantime I recommended Precedex drip, and after I saw the patient in the ICU, she will be receiving Ativan 1 mg every 4 hours as needed, will also recommend Haldol if necessary. Patient is not a great historian, she seems to be confused, restless and agitated in bed. But could not give any adequate history. Labs were reviewed patient had a bit of leukocytosis with WBC count of 15.1 hemoglobin 16.7. ABG on room air showed a pO2 of 120 pCO2 20 pH of 7.21.Basic metabolic profile is normal renal profile showed a BUN of 15 and creatinine of 1.1 drug screen was positive for tricyclic antidepressants, benzodiazepines, and marijuana. But no alcohol and no acetaminophen Patient was reevaluated today on 07/20/2023, patient remains in the ICU, she is definitely more awake today, she is alert oriented x 3, does not seem to be in any distress. Patient is off Precedex, she is very calm, she has a sitter at bedside. Her bicarb drip was discontinued last night, bicarb level was as high as 3 0 last night, patient is doing great. Today the patient tells me that she never intended to commit suicide, although she had previous thoughts in the past about committing suicide. And she denied taking an extensive dose of Seroquel. At any rate patient is alert and oriented x 3, does not seem to be experiencing any symptoms. And I am planning a psychiatric consultation on this patient today, and transferring the patient to a regular medical floor. If cleared by psychiatry, patient could be considered for discharge planning. Meantime continue suicidal precautions, and continue sitter at bedside Reevaluate today on 07/21/2023, patient continues to do well, progressing quite nicely and better than expected considering her initial presentation with Seroquel overdose and history of alcohol abuse and potential alcohol withdrawal. Patient is in no distress, she is on room air, relatively asymptomatic. She is alert and oriented x 3, and she has no gross focal neurologic deficits. The plan is to either send the patient to medical surgical floor or to psychiatry apparently patient meets criteria for inpatient psychiatric evaluation, and note from psychiatry was appreciated. Meantime patient is receiving Librium as per the recommendation of psychiatry on the case. She is not requiring any Precedex, and not requiring any Ativan at this pointLabs were unremarkable except for low potassium of 3.1 being addressed accordingly as per protocol. Objective - Vital Signs Vital signs: Vital Signs Temp 98.7 F 07/21/23 08:11 Pulse 92 07/21/23 08:11 Resp 13 07/21/23 08:11 BP 131/75 07/21/23 08:11 Pulse Ox 97 07/21/23 08:11 FiO2 Intake & Output 07/20/23 07/21/23 07/21/23 18:59 06:59 18:59 Intake Total 1980 300 Output Total 800 900 Balance 1180 -600 Weight 63.7 kg Intake: IV 1200 300 Sodium Chloride 0.9% 1, 1200 300 000 ml @ 100 mls/hr IV . Q10H BRODY Rx#:[id number] Oral 780 Output: Urine 800 900 Other: Voiding Method Indwelling Catheter Bedside Commode Toilet # Voids 1 - Exam General: Reveals a 48-year-old female, pleasant in no distress, on room air Skin: Skin is warm and dry and no rashes or lesions are noted. Eye: Pupils are equal, round and reactive to light, extra-ocular movements are intact; there is normal conjunctiva bilaterally. Ears, nose, mouth and throat: Dry mucous membranes otherwise negative. Neck: Supple no neck masses no JVD no stridor Cardiovascular: Normal S1-S2, no S3 gallop.. Respiratory: Clear bilaterally symmetrical chest expansion no crackles rhonchi or wheezes Gastrointestinal: Soft, non-distended, non-tender abdomen without masses or organomegaly noted. There is no rebound or guarding present. Bowel sounds are unremarkable. Musculoskeletal: Normal ROM, no tenderness, There is no pedal edema. There is no calf tenderness or swelling. No cords were appreciated. Psychiatric: Normal mood affect and normal mental status examination Neurologic: Alert oriented x 3 no gross focal neurologic deficit - Labs CBC & Chem 7: 07/21/23 05:52 07/21/23 05:52 Labs: Abnormal Lab Results - Last 24 Hours (Table) 07/21/23 Range/Units 05:52 Sodium 136 L (137-145) mmol/L Potassium 3.1 L (3.5-5.1) mmol/L Glucose 108 H (74-99) mg/dL Assessment and Plan Assessment: Impression: Acute Seroquel overdose, History of depression and history of suicidal thoughts/major affective disorder History of alcohol abuse History of GERD Benign essential hypertension History of COPD, presently inactive History of migraine cephalgia. History of ADHD. Recommendation: Continue present supportive care measures Psychiatric note was fully appreciated, patient is now on Librium, she will eventually need to go to psychiatric inpatient service Cleared the patient to be sent to psychiatry in the meantime she can be sent to a medical surgical floor on Librium and continue suicidal precautions Transfer to medical surgical floor Suicidal precautions GI and DVT prophylaxis Continue Librium Will continue to follow. Time with Patient: Less than 30
[2023-07-21] MEDS: SUCRALFATE 1 GM TAB PO SCH (15:55)
--- NOTE | 2023-07-21 15:58 | P.DS ---
Providers Date of admission: 07/19/23 09:40 Expected date of discharge: 07/21/23 Attending physician: Pricila Nance Consults: 07/19/23 11:16 Consult Physician Stat Consulting Provider: Liyah Ceran Consult Reason/Comments: ICU Do you want consulting provider notified?: Already Contacted 07/20/23 05:20 Consult Physician Routine Consulting Provider: Pankaj Newell Consult Reason/Comments: suicide attempt Do you want consulting provider notified?: Yes, Notify in am Primary care physician: Pricila Nance Hospital Course: HISTORY OF PRESENT ILLNESS: This is a 48-year-old female with a previous medical history significant for anxiety, major depressive disorder, chronic alcohol use and dependence, has been on naltrexone 50 mg once every day, attention deficit disorder, chronic insomnia due to underlying medical condition and possible due to behavior disturbances, apparently the patient was last seen in my office about greater than a year ago, and she has been noncompliant with her office visit as the patient has lost her insurance after she left Dr. Colmenares's office as her workplace, and patient has been feeling more depressed recently according to her cousin who was at the bedside, she stated that the patient has been drinking at least half 1/5 of vodka on a daily basis, and she has been buying some Adderall from the street along with her current medications, she has been trying to come off the alcohol on her own without the help of medical physics teacher, patient has been seen in the past by alcohol rehabilitation many years ago without any success, patient apparently was found incoherent with mental status changes sitting on the floor after she has fallen at least multiple times due to multiple bruises in both lower extremities, EMS was called after they found that the bottle of her Seroquel XR 300 mg was missing the pills and the patient was not able to give any information at that time, we assume that the patient has ingested 15 of her Seroquel XR and the patient was sent into the emergency department at [facility], she was seen in the ER, had a battery of laboratory evaluation that showed evidence of severe metabolic acidosis with bicarb level of 12, her lactic acid was negative, her CPK was normal, the patient was started on sodium bicarb drip and she was admitted to the intensive care unit, she was placed on Precedex drip as well, and she was seen in consultation by pulmonary/critical care, and she will be seen in consultation by psychiatry, she was placed in one-on-one suicide precaution, patient did have a soft restraint in both upper extremities and soft restraint around her torso, patient cousin was at the bedside and she was updated about her current condition. 07/20: Patient remains in the ICU and hemodynamically stable. She has been seen by Dr. Cerna and cleared for discharge to [facility]. Patient has been seen by psychiatry and accepted to the [facility]. Patient is complaining of epigastric discomfort and protonix, famotidine and carafate ordered and to be continued at discharge. Patient is cleared for discharge to the MHU and free to go once arrangements are completed. REVIEW OF SYSTEMS: Constitutional: No documented fever, no chills, no night sweats. No weight change. positive for weakness, negative for lethargy. No daytime sleepiness. EENT: No headache. No blurred vision or double vision, no loss of vision. No loss of Hearing, no ringing in the ears, no dizziness. No nasal drainage or congestion. No epistaxis. No sore throat. Lungs: No shortness of breath, no cough, no sputum production. No wheezing. Reports dyspnea with activity. Cardiovascular: No chest pain, no lower extremity edema. No palpitations. No paroxysmal nocturnal dyspnea. No orthopnea. No lightheadedness or dizziness. No syncopal episodes. Abdominal: Reports no abdominal pain. No nausea, vomiting. No diarrhea. No constipation. No bloody or tarry stools reports loss of appetite. Genitourinary: No dysuria, increased frequency, urgency. No urinary retention. Musculoskeletal: No myalgias. No muscle weakness, no gait dysfunction, no frequent falls. no back pain. No neck pain. Integumentary: No wounds, no lesions. No rash or pruritus. No unusual bruising. No change in hair or nails. Neurologic: No aphasia. No facial droop. positive for change in mentation. No head injury. No headache. No paralysis. No paresthesia. Psychiatric: positive for depression, anxiety and she denies suicidal ideation Endocrine: No abnormal blood sugars. No weight change. PHYSICAL EXAMINATION: General: 48-year-old female laying down in bed appears to be more awake HEENT: Head is atraumatic, normocephalic, pupils were equal round reactive to light and recommendation, extraocular muscle movement were intact, sclera nonicteric, conjunctivae were pale, mucous membranes of the mouth are somewhat dry. Neck: Supple, no JVP, normal carotid upstroke bilaterally, no lymphadenopathy. Chest: Decreased breath sounds at the bases, few rhonchi, no expiratory wheezes, no chest wall tenderness, no intercostal retractions. Heart: First heart sound is normal, second heart sound is normal there os no gallop or murmur Abdomen: Soft, nontender, nondistended, positive bowel sounds. Extremities: There is no edema no calf tenderness DP +2 bilaterally. Neurologic examination: Patient is awake alert and oriented x 3, cranial nerves II-12 appear grossly intact, muscle power were 4 out of 5 in upper extremities and 5 out of 5 in bilateral lower extremities, deep tendon reflexes normal bilaterally, no clonus or rigidity DISCHARGE DIAGNOSES: 1. Metabolic encephalopathy likely due to Seroquel overdose patient had consumed at least 10 Seroquel XR 300 mg tablets 2. Suicidal attempt. 3. Severe metabolic acidosis . 4. Attention deficit disorder. 5. Chronic alcohol use and dependence. 6. Major depressive disorder with suicidal thoughts and ideation. 7. Anxiety disorder. 8. Restless leg syndrome. 9. Multiple bruises in both lower extremities secondary to a fall due to drug overdose. 10. GI prophylaxis and gasstritis, GERD. Continue patient on protonix 40 mg daily in the morning, famotidine 40 mg in the hs, carafate 1 gm bid to be continued. Patient Condition at Discharge: Stable Plan - Discharge Summary Discharge Rx Participant: No New Discharge Prescriptions: New chlordiazePOXIDE HCl [Librium] 25 mg PO TID cap Famotidine [Pepcid] 40 mg PO HS tab Pantoprazole [Protonix] 40 mg PO AC-BRKFST tab Thiamine [Vitamin B-1] 100 mg PO DAILY tab Sucralfate [Carafate] 1 gm PO AC-BID tab Nicotine 14Mg/24Hr Patch [Habitrol] 1 patch TRANSDERM DAILY patch Acetaminophen Tab [Tylenol] 650 mg PO Q6HR PRN tab PRN Reason: Fever And/ Or Pain Continue Metoprolol Succinate (ER) [Toprol XL] 50 mg PO DAILY Rimegepant Sulfate [Nurtec Odt] 75 mg PO DAILY PRN PRN Reason: Migraine Headache Vortioxetine Hydrobromide [Trintellix] 20 mg PO DAILY Ondansetron [Zofran] 4 mg PO Q8HR PRN PRN Reason: Nausea And Vomiting rOPINIRole HCL [Requip] 0.5 mg PO HS Albuterol Sulfate [Albuterol Sulfate Hfa] 2 puff PO RT-Q4H PRN PRN Reason: Shortness Of Breath Discontinued SUMAtriptan succinate [Imitrex] 50 mg PO BID PRN PRN Reason: Migraine Headache QUEtiapine FUMARATE [SEROquel] 150 mg PO HS Discharge Medication List Albuterol Sulfate [Albuterol Sulfate Hfa] 2 puff PO RT-Q4H PRN 07/19/23 [History] Metoprolol Succinate (ER) [Toprol XL] 50 mg PO DAILY 07/19/23 [History] Ondansetron [Zofran] 4 mg PO Q8HR PRN 07/19/23 [History] Rimegepant Sulfate [Nurtec Odt] 75 mg PO DAILY PRN 07/19/23 [History] Vortioxetine Hydrobromide [Trintellix] 20 mg PO DAILY 07/19/23 [History] rOPINIRole HCL [Requip] 0.5 mg PO HS 07/19/23 [History] Acetaminophen Tab [Tylenol] 650 mg PO Q6HR PRN tab 07/21/23 [Rx] Famotidine [Pepcid] 40 mg PO HS tab 07/21/23 [Rx] Nicotine 14Mg/24Hr Patch [Habitrol] 1 patch TRANSDERM DAILY patch 07/21/23 [Rx] Pantoprazole [Protonix] 40 mg PO AC-BRKFST tab 07/21/23 [Rx] Sucralfate [Carafate] 1 gm PO AC-BID tab 07/21/23 [Rx] Thiamine [Vitamin B-1] 100 mg PO DAILY tab 07/21/23 [Rx] chlordiazePOXIDE HCl [Librium] 25 mg PO TID cap 07/21/23 [Rx] Follow up Appointment(s)/Referral(s): Pricila Nance MD [Primary Care Provider] - 1-2 days Discharge Disposition: TRANSFER TO PSYCH HOSP/UNIT
[2023-07-21] MEDS ORDERED: LORazepam 1 MG TAB PO PRN (16:13)
[2023-07-21 20:37] VITALS: BP 134/89; PULSE 91; RESP 14; TEMP 97.9
[2023-07-21] MEDS ORDERED: FAMOTIDINE 20 MG TAB PO SCH (21:00)
[2023-07-22] MEDS ORDERED: PANTOPRAZOLE 40 MG TABLET PO SCH (07:30)
== END 2023-07-21 21:43 | DRG 817 ==
LOC: EC 07:22 → 2SICU 09:40
PROVIDERS: ADMIT Internal Medicine; ATTEND Internal Medicine
PROC: HZ2ZZZZ Detoxification Services for Substance Abuse Treatment (ICD-10-PCS; principal; 2023-07-19)
DX: T43.592A Poisoning by other antipsychotics and neuroleptics, intentional self-harm, initial encounter (principal); G92.8 Other toxic encephalopathy; F12.10 Cannabis abuse, uncomplicated; R45.851 Suicidal ideations; F17.210 Nicotine dependence, cigarettes, uncomplicated; F29 Unspecified psychosis not due to a substance or known physiological condition; S80.12XA Contusion of left lower leg, initial encounter; S80.11XA Contusion of right lower leg, initial encounter; F33.2 Major depressive disorder, recurrent severe without psychotic features; F41.9 Anxiety disorder, unspecified; F90.9 Attention-deficit hyperactivity disorder, unspecified type; F10.239 Alcohol dependence with withdrawal, unspecified; E87.20 Acidosis, unspecified; T43.595A Adverse effect of other antipsychotics and neuroleptics, initial encounter; X58.XXXA Exposure to other specified factors, initial encounter; G25.81 Restless legs syndrome; I10 Essential (primary) hypertension; K21.9 Gastro-esophageal reflux disease without esophagitis; Z79.899 Other long term (current) drug therapy; Z82.49 Family history of ischemic heart disease and other diseases of the circulatory system; K29.70 Gastritis, unspecified, without bleeding; Z91.199 Patient's noncompliance with other medical treatment and regimen due to unspecified reason; Z90.49 Acquired absence of other specified parts of digestive tract; W19.XXXA Unspecified fall, initial encounter; Z71.51 Drug abuse counseling and surveillance of drug abuser
CPT/HCPCS: 36415; 36600; 70450; 71045; 72125; 80048; 80053; 80143; 80179; 80306; 80320; 81001; 82550; 82805; 83605; 83735; 83930; 84132; 84484; 85025; 85027; 87635; 93005; 96361; 96365; 96375; 99291

== ENCOUNTER 2023-07-21 16:53 | Inpatient (IN) | payer MEDICAID ==
[2023-07-21] MEDS ORDERED: MAG HYDROX/AL HYDROX/SIMETH 355 ML BOTTLE PO PRN (18:53)
[2023-07-21] MEDS ORDERED: ACETAMINOPHEN TAB 325 MG TAB PO PRN (18:53)
[2023-07-21] MEDS ORDERED: MAGNESIUM HYDROXIDE 2,400 MG/30 ML CUP PO PRN (18:53)
[2023-07-21] MEDS ORDERED: LORazepam 1 MG TAB PO PRN ×2 (18:56→19:00)
[2023-07-21] MEDS ORDERED: ALBUTEROL INHALER 60 PUFF/8 GM INHALER (MHU) INHALATION PRN (18:57)
[2023-07-21] MEDS ORDERED: ONDANSETRON 4 MG TAB PO PRN (18:57)
[2023-07-21] MEDS ORDERED: LORazepam 2 MG/ML INJ IM PRN (19:00)
[2023-07-21] MEDS: FAMOTIDINE 20 MG TAB PO SCH (21:00)
[2023-07-21] MEDS: chlordiazePOXIDE 25 MG CAP PO SCH (21:01)
[2023-07-21] MEDS: LORazepam 1 MG TAB PO PRN (21:02)
[2023-07-22] MEDS: MULTIVITAMINS, THERA 1 EACH TAB PO SCH (08:40)
[2023-07-22] MEDS: THIAMINE 100 MG TAB PO SCH (08:40)
[2023-07-22] MEDS: SUCRALFATE 1 GM TAB PO SCH (08:41)
[2023-07-22] MEDS: PANTOPRAZOLE 40 MG TABLET PO SCH (08:41)
[2023-07-22] MEDS: FOLIC ACID 1 MG TAB PO SCH (08:41)
[2023-07-22] MEDS: IBUPROFEN 600 MG TAB PO PRN (08:42)
[2023-07-22] MEDS: METOPROLOL SUCCINATE (ER) 50 MG TAB.ER.24H PO SCH (08:42)
[2023-07-22 12:51] LABS: Basophils # (A) 0.1 k/uL (0-0.2); Basophils % (A) 1 %; Eosinophils # (A) 0.1 k/uL (0-0.7); Eosinophils % (A) 1 %; HCT 45.3 % (34.0-46.0); HGB 14.9 gm/dL (11.4-16.0); Lymphocytes # (A) 1.2 k/uL (1.0-4.8); Lymphocytes % (A) 18 %; MCH 32.2 pg (25.0-35.0); MCHC 32.8 g/dL (31.0-37.0); MCV 98.2 fL (80.0-100.0); Mean Platelet Volume 7.3; Monocytes # (A) 0.4 k/uL (0-1.0); Monocytes % (A) 5 %; Neutrophils # (A) 4.9 k/uL (1.3-7.7); Neutrophils % (A) 72 %; Platelet Count 252 k/uL (150-450); RBC 4.61 m/uL (3.80-5.40); RDW 13.7 % (11.5-15.5); WBC 6.9 k/uL (3.8-10.6)
[2023-07-22 13:14] LABS: ALT 60 U/L (4-34); AST 52 U/L (14-36); African American GFR (CKD) >90 (>60 ml/min/1.73 sqM); Albumin 3.8 g/dL (3.5-5.0); Alkaline Phosphatase 145 U/L (38-126); Anion Gap 5 mmol/L; Blood Urea Nitrogen 15 mg/dL (7-17); Calcium 9.6 mg/dL (8.4-10.2); Carbon Dioxide 27 mmol/L (22-30); Chloride 105 mmol/L (98-107); Glucose 105 mg/dL (74-99); Non-African American GFR(CKD) >90 (>60 ml/min/1.73 sqM); Potassium 4.1 mmol/L (3.5-5.1); Sodium 137 mmol/L (137-145); Total Bilirubin 0.6 mg/dL (0.2-1.3); Total Protein 6.6 g/dL (6.3-8.2)
--- NOTE | 2023-07-22 15:31 | P.HP ---
Psychiatric H&P - . H&P Date: 07/22/23 History & Physical: Allergies Allergy/AdvReac Type Severity Reaction Status Date / Time No Known Allergies Allergy Verified 07/19/23 10:39 Vital Signs Temp 98.1 F 07/21/23 21:29 Pulse 75 07/21/23 21:29 Resp 16 07/21/23 21:29 BP 128/74 07/21/23 21:29 Pulse Ox 99 07/21/23 21:29 FiO2 Intake & Output 07/21/23 07/22/23 07/22/23 18:59 06:59 18:59 Weight 63.7 kg 63.7 kg Laboratory Last Values WBC 6.9 k/uL (3.8-10.6) 07/22/23 12:15 RBC 4.61 m/uL (3.80-5.40) 07/22/23 12:15 Hgb 14.9 gm/dL (11.4-16.0) 07/22/23 12:15 Hct 45.3 % (34.0-46.0) 07/22/23 12:15 MCV 98.2 fL (80.0-100.0) 07/22/23 12:15 MCH 32.2 pg (25.0-35.0) 07/22/23 12:15 MCHC 32.8 g/dL (31.0-37.0) 07/22/23 12:15 RDW 13.7 % (11.5-15.5) 07/22/23 12:15 Plt Count 252 k/uL (150-450) 07/22/23 12:15 MPV 7.3 07/22/23 12:15 Neutrophils % 72 % 07/22/23 12:15 Lymphocytes % 18 % 07/22/23 12:15 Monocytes % 5 % 07/22/23 12:15 Eosinophils % 1 % 07/22/23 12:15 Basophils % 1 % 07/22/23 12:15 Neutrophils # 4.9 k/uL (1.3-7.7) 07/22/23 12:15 Lymphocytes # 1.2 k/uL (1.0-4.8) 07/22/23 12:15 Monocytes # 0.4 k/uL (0-1.0) 07/22/23 12:15 Eosinophils # 0.1 k/uL (0-0.7) 07/22/23 12:15 Basophils # 0.1 k/uL (0-0.2) 07/22/23 12:15 Sodium 137 mmol/L (137-145) 07/22/23 12:15 Potassium 4.1 mmol/L (3.5-5.1) 07/22/23 12:15 Chloride 105 mmol/L (98-107) 07/22/23 12:15 Carbon Dioxide 27 mmol/L (22-30) 07/22/23 12:15 Anion Gap 5 mmol/L 07/22/23 12:15 BUN 15 mg/dL (7-17) 07/22/23 12:15 Creatinine 0.62 mg/dL (0.52-1.04) 07/22/23 12:15 Est GFR (CKD-EPI)AfAm >90 (>60 ml/min/1.73 sqM) 07/22/23 12:15 Est GFR (CKD-EPI)NonAf >90 (>60 ml/min/1.73 sqM) 07/22/23 12:15 Glucose 105 mg/dL (74-99) H 07/22/23 12:15 Calcium 9.6 mg/dL (8.4-10.2) 07/22/23 12:15 Total Bilirubin 0.6 mg/dL (0.2-1.3) 07/22/23 12:15 AST 52 U/L (14-36) H 07/22/23 12:15 ALT 60 U/L (4-34) H 07/22/23 12:15 Alkaline Phosphatase 145 U/L (38-126) H 07/22/23 12:15 Total Protein 6.6 g/dL (6.3-8.2) 07/22/23 12:15 Albumin 3.8 g/dL (3.5-5.0) 07/22/23 12:15 TSH 1.370 mIU/L (0.465-4.680) 07/22/23 12:15 07/22/23 15:27 In-Patient Follow-up Initial Psychiatric Evaluation Identifying Data: Ms. Candie Peter is 48 years old, single, WF, who lives in [place], [place] in a one-bedroom house by herself. Chief Complaint: I tried to withdraw myself off Alcohol on my own. History of Psychiatric Illness: The patient noted that she was trying to get off alcohol on her own cold turkey. On the third day of her being off alcohol, the patient became confused, disoriented, started hallucinating and frightened. She fell and bruised her face. She took Seroquel to go to sleep but does not remember how many she took or many times she took. The patient that she had no intentions of killing herself. She could not remember the details of that evening. Next morning her cousin came and found her on the floor. She called the ambulance and brought patient to the ER. The patient was admitted to the ICU, where she was seen by Psychiatry for Sucidality. The patient was transferred to [facility]HU on 07/21/2023 for further management after being medically cleared. Currently, the patient experiencing symptoms of depression, anxiety, being shaky and withdrawal symptoms. She described withdrawal symptoms such as headache, body ache, trembling, severe anxiety. The patient expressed concern about job and financial issues. The patient feels very frustrated with Alcohol addiction and repeated relapse. The patient stated, I am tired of doing this again and again. She cried few times during this evaluation. Her depressive symptomatology consists of being sad, loneliness, crying spells, loss of motivation, social isolation, guilt feeling and sense of worthlessness. She denied being hopeless, or suicidal. The patient was taking Trintellix, Buspar, Seroquel. Leading questions: The patient admitted to Depression and Anxiety. Denied SI or HI. Denied symptoms consistent with psychosis. Past Psychiatric History: the patient noted that she has suffered from Depression since age 16. She has had out-pt treatment since then. She has gone to [facility] of and on. She has history of 6-7 psychiatric admission. Her last admission was last year for Depression. Most of her admissions were for Depression. The patient was once admitted for suicidality 10 years ago after cutting her arm under the influence of heavy drinking in an intoxicated state. Her average hospital stay has been 7 days. Past Medication History: Depakote, Prozac, Zoloft, Lexapro, Ativan, Xanax. Drugs and alcohol history: The patient has history of Alcohol and Marijuana abuse. The patient started drinking around age 17. She started drinking heavy around age 28. She has drunk heavy off and on since then. She has periods of sobriety. Her longest sobriety was for 2 years 3 years ago. She has had 6-7 Detox and rehab admissions. Her last rehab was in September,. The patient has H/O blackouts, Mild withdrawals, and possible DTs during this admission. She smokes Marijuana everyday once or twice a day. She smokes half a joint at a time. Smoking: She smokes a pack/ week. She quit smoking 2 weeks ago. Past Medical history: Hypertension, Migraine Family History of Psychiatric Disorder: The patients mother, maternal aunt, grandmother suffer from Depression. Her maternal cousin is psychotic, sees camera and get paranoid. She denied any H/O suicide or Homicide in the family. Social History and Family History: Born and raised: The patient was born and raise in [place], [place]. She grew up with her older brother. He finished [employer]. 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 She never and has no children. OTC: Ibuprofen Allergies: None Aims: Normal Objective: MSE: Alert and attentive. Orientation times three Dressed and Groomed: Appropriately in hospital clothes. Pleasant and cooperative. Psychomotor Activity: Normal. Speech: Normal in tone, quality, and quantity. Mood: Depressed and Anxious. Affect: Consistent with mood. SI or HI: None. Perceptual disturbance: None. Thought Content: No paranoia or other delusional thinking noted. Thought Process: Normal. Cognition: Intact Judgment and Insight: Good AIMS: Normal Labs: Non available, ordered. Diagnosis: Major Depressive Disorder, Severe, recurrent Dysthymic Disorder Alcohol Dependence Marijuana Abuse Plan and Recommendations: Continue patients out-patient medications. Monitor MS and side effects of medications and adjust medications accordingly. Provide supportive psychotherapy The patient provided Substance abuse counseling. Smoke cessation therapy. Lucas Milieu. The patient to see a therapist on a regular basis once a week. CBC with Diff, CMP, TSH, Lipid Profile, HbA1c, EKG ordered. Discharge to home after stabilization with out-pt follow-up at [facility] Medication Consent with explanation of risk/benefits and side effects: Explained and obtained.
--- NOTE | 2023-07-22 16:34 | P.MDCNMH ---
History of Present Illness H&P Date: 07/22/23 Chief Complaint: Suicidal thoughts and ideation major depressive disorder HISTORY OF PRESENT ILLNESS: This is a 48-year-old female with a previous medical history s ignificant for anxiety, major depressive disorder, chronic alcohol use and dependence, has been on naltrexone 50 mg once every day, attention deficit disorder, chronic insomnia due to underlying medical condition and possible due to behavior disturbances, apparently the patient was last seen in my office about greater than a year ago, and she has been noncompliant with her office visit as the patient has lost her insurance after she left Dr. Colmenares's office as her workplace, and patient has been feeling more depressed recently according to her cousin who was at the bedside, she stated that the patient has been drinking at least half 1/5 of vodka on a daily basis, and she has been buying so me Adderall from the street along with her current medications, she has been trying to come off the alcohol on her own without the help of medical safety director, patient has been seen in the past by alcohol rehabilitation many years ago without any success, patient apparently was found incoherent with mental status changes sitting on the floor after she has fallen at least multiple times due to multiple bruises in both lower extremities, EMS was called after they found that the bottle of her Seroquel XR 300 mg was missing the pills and the patient was not able to give any information at that time, we assume that the patient has ingested 15 of her Seroquel XR and the patient was sent into the emergency department at [facility], she was seen in the ER, had a battery of laboratory evaluation that showed evidence of severe metabolic acidosis with bicarb level of 12, her lactic acid was negative, her CPK was normal, the patient was started on sodium bicarb drip and she was admitted to the intensive care unit, she was placed on Precedex drip as well, and she was seen in consultation by pulmonary/critical care, and she will be seen in consultation by psychiatry, patient did well after 2-day in the hospital in the ICU, and she become more awake and alert, she stated that she never wanted to get home herself, but she was trying to go to sleep that is why she took Seroquel but she did not remember how many pills she took, patient apparently was seen in consultation by psychiatry and it was recommended for the patient to be admitted to the mental health unit at this time, therefore the patient was cleared medically to be transferred to the mental health unit today patient was evaluated in the mental health unit along with the nursing staff, she was laying down in bed in no apparent distress, she does complain of soreness in the buttock area due to blistering on the buttock due to laying on the floor for quite some time, no evidence of any rhabdomyolysis at this time, no evidence of any unusual issues she does appear to have significant bruising in the back as well as both lower extremities, patient will be started on zinc oxide of 20% to be applied to the bilateral buttock area covered with a Telfa change on a daily basis, and keep off load and try to sleep on the side we will start the patient on oral antibiotic in the form of Keflex 500 mg orally 3 times every day for 7 days just for infection prevention. REVIEW OF SYSTEMS: Constitutional: No documented fever, no chills, no night sweats. No weight change. positive for weakness, positive for lethargy. No daytime sleepiness. EENT: No headache. No blurred vision or double vision, no loss of vision. No loss of Hearing, no ringing in the ears, no dizziness. No nasal drainage or congestion. No epistaxis. No sore throat. Lungs: No shortness of breath, no cough, no sputum production. No wheezing. Reports dyspnea with activity. Cardiovascular: No chest pain, no lower extremity edema. No palpitations. No paroxysmal nocturnal dyspnea. No orthopnea. No lightheadedness or dizziness. No syncopal episodes. Abdominal: Reports abdominal pain. No nausea, vomiting. No diarrhea. No constipation. No bloody or tarry stools reports loss of appetite. Genitourinary: No dysuria, increased frequency, urgency. No urinary retention. Musculoskeletal: No myalgias. No muscle weakness, no gait dysfunction, no frequent falls. positive for back pain. No neck pain. Integumentary: Bilateral carpet george to both buttock area with minimal denuded blisters, no lesions. No rash or pruritus. Multiple bruising. No change in hair or nails. Neurologic: No aphasia. No facial droop. positive for change in mentation. No head injury. No headache. No paralysis. No paresthesia. Psychiatric: positive for depression, anxiety and denies suicidal ideation. Endocrine: No abnormal blood sugars. No weight change. PAST MEDICAL HISTORY: Attention deficit disorder Restless leg syndrome Chronic alcohol use and dependence Major depressive disorder Anxiety disorder PAST SURGICAL HISTORY: Cholecystectomy 2017 EGD and colonoscopy 2017 Left shoulder repair due to chronic dislocation 2020 SOCIAL HISTORY: Patient used to smoke about a pack every day she started the age of 19 and she quit in 2017 she does drink half 1/5 of vodka on a daily basis, and she is trying to get off the alcohol, she does not use any drugs, however she buys Adderall from street according to her cousin. FAMILY HISTORY: Father at age of 64 from esophageal cancer and melanoma he also had history of diabetes and hypertension, mother is 75-year-old with history of ovarian cancer with mets to the liver, also hypertension, hypothyroidism, and depression, patient has 1 brother who is 50-year-old who is healthy. PHYSICAL EXAMINATION: General: 48-year-old female laying down in bed in no apparent distress. HEENT: Head is atraumatic, normocephalic, pupils were equal round reactive to light and recommendation, extraocular muscle movement were intact, sclera nonicteric, conjunctivae were pale, mucous membranes of the mouth are somewhat dry. Neck: Supple, no JVP, normal carotid upstroke bilaterally, no lymphadenopathy. Chest: Decreased breath sounds at the bases, few rhonchi, no expiratory wheezes, no chest wall tenderness, no intercostal retractions. Heart: First heart sound is normal, second heart sound is normal there os no gallop or murmur Abdomen: Soft, nontender, nondistended, positive bowel sounds. Extremities: There is no edema no calf tenderness DP +2 bilaterally. Neurologic examination: Patient is awake alert and oriented x 3, cranial nerves II to XII appear grossly intact, muscle power 5 out of 5 in upper and lower extremities bilaterally no tremors, deep tendon reflexes were normal. Skin examination: There is minimal carpet george to bilateral buttock area with denuded blisters minimal erythema no drainage multiple bruising to the lower extremities as well as the upper back. ASSESSMENT AND PLAN: 1. Major depressive disorder patient denies suicidal thoughts or ideation. Con almazue patient on Trintellix 20 mg orally once every day, monitor the patient in the mental health unit, continue other treatment as per the mental health unit team. 2. Suicidal attempt. Patient has ingested at least 10 tablets of Seroquel 300 mg but she has no recollection of that. 3. Severe metabolic acidosis . Resolved. 4. Attention deficit disorder. Keep the patient off stimulant for now. 5. Chronic alcohol use and dependence. Continue patient on lorazepam as needed, continue patient also on thiamine 100 mg orally once every day, B12 1000 mcg orally once every day as well as folic acid 1 mg once every day, multivitamin once every day, continue with the chlordiazepoxide 20 mg orally 3 times every day. Patient is already on lorazepam as needed for agitation or withdrawal. 6. Major depressive disorder with suicidal thoughts and ideation. Continue current treatment with Trintellix 20 mg orally once a day, monitor the patient very closely. 7. Anxiety disorder. We will continue with current treatment plan. 8. Restless leg syndrome. hold off ropinirole for now. 9. Insomnia. Continue patient on trazodone 50 mg at bedtime. 10. Multiple bruises in both lower extremities secondary to a fall due to drug overdose. Stable. 11. Bilateral buttock abrasions with denuded blisters. Apply zinc oxide 20% covered with Telfa offload, turning the patient every 2 hours, sleep on that side. Start the patient on cephalexin 500 mg orally 3 times every day for 7 days for infection prevention. 12. DVT prophylaxis. Lovenox 40 mg subcutaneous every 24 hours. 13. GI prophylaxis. Continue patient on Protonix 40 milligram orally once every day, famotidine 40 mg at bedtime, Carafate 1 g orally twice every day. 14. Thank you for the consult we will follow the patient along with you. Past Medical History Past Medical History: GERD/Reflux Additional Past Medical History / Comment(s): migraines,nodules on thyroid History of Any Multi-Drug Resistant Organisms: None Reported Past Surgical History: Cholecystectomy, Orthopedic Surgery Additional Past Surgical History / Comment(s): hand surg., bankart procedure left shoulder, left ulnar nerve surgery Past Anesthesia/Blood Transfusion Reactions: No Reported Reaction Past Psychological History: ADD/ADHD, Depression Smoking Status: Former smoker Past Alcohol Use History: Abuse, Daily, Heavy Past Drug Use History: Marijuana - Past Family History Father Family Medical History: Cancer Additional Family Medical History / Comment(s): Esophageal cancer Mother Family Medical History: Thyroid Disorder Additional Family Medical History / Comment(s): depression Medications and Allergies Home Medications Medication Instructions Recorded Confirmed Type Albuterol Sulfate [Albuterol 2 puff PO RT-Q4H PRN 07/19/23 07/21/23 History Sulfate Hfa] Metoprolol Succinate (ER) [Toprol 50 mg PO DAILY 07/19/23 07/21/23 History XL] Ondansetron [Zofran] 4 mg PO Q8HR PRN 07/19/23 07/21/23 History Rimegepant Sulfate [Nurtec Odt] 75 mg PO DAILY PRN 07/19/23 07/21/23 History Vortioxetine Hydrobromide 20 mg PO DAILY 07/19/23 07/21/23 History [Trintellix] rOPINIRole HCL [Requip] 0.5 mg PO HS 07/19/23 07/21/23 History Acetaminophen Tab [Tylenol] 650 mg PO Q6HR PRN tab 07/21/23 07/21/23 Rx Famotidine [Pepcid] 40 mg PO HS tab 07/21/23 07/21/23 Rx Nicotine 14Mg/24Hr Patch [Habitrol] 1 patch TRANSDERM DAILY patch 07/21/23 07/21/23 Rx Pantoprazole [Protonix] 40 mg PO AC-BRKFST tab 07/21/23 07/21/23 Rx Sucralfate [Carafate] 1 gm PO AC-BID tab 07/21/23 07/21/23 Rx Thiamine [Vitamin B-1] 100 mg PO DAILY tab 07/21/23 07/21/23 Rx chlordiazePOXIDE HCl [Librium] 25 mg PO TID cap 07/21/23 07/21/23 Rx Allergies Allergy/AdvReac Type Severity Reaction Status Date / Time No Known Allergies Allergy Verified 07/19/23 10:39 Physical Exam Vitals: Vital Signs Temp Pulse Resp BP Pulse Ox 07/21/23 21:29 98.1 F 75 16 128/74 99 07/21/23 20:36 97.8 F 99 18 183/101 97 Intake and Output 07/21/23 07/22/23 07/22/23 22:59 06:59 14:59 Other: Weight 63.7 kg Cranial Nerve Examination - Cranial Nerves Cranial Nerve I- Olfactory: Intact Cranial Nerve II- Optic: Intact Cranial Nerve III- Oculomotor: Intact Cranial Nerve IV- Trochlear: Intact Cranial Nerve V- Trigeminal: Intact Cranial Nerve - Abducens: Intact Cranial Nerve VII- Facial: Intact Cranial Nerve VIII- Auditory: Intact Cranial Nerve IX- Glossopharyngeal: Intact Cranial Nerve X- Vagus: Intact Cranial Nerve XI- Accessory: Intact Cranial Nerve XII- Hypoglossal: Intact Results CBC & Chem 7: 07/23/23 10:22 07/23/23 10:22 Labs: Abnormal Lab Results - Last 24 Hours (Table) 07/22/23 Range/Units 12:15 Glucose 105 H (74-99) mg/dL AST 52 H (14-36) U/L ALT 60 H (4-34) U/L Alkaline Phosphatase 145 H (38-126) U/L
[2023-07-22] MEDS: traZODone HCL 50 MG TAB PO SCH (20:35)
[2023-07-22] MEDS: LORazepam 1 MG TAB PO PRN (20:35)
[2023-07-22] MEDS: CEPHALEXIN 500 MG CAP PO SCH (20:35)
[2023-07-22] MEDS: ZINC OXIDE 20% OINT 28.4 GM TUBE TOPICAL SCH (20:38)
[2023-07-23] MEDS: CYANOCOBALAMIN 500 MCG TAB PO SCH (08:33)
[2023-07-23] MEDS: VORTIOXETINE HYDROBROMIDE 20 MG TABLET PO SCH (08:33)
[2023-07-23] MEDS: THIAMINE 100 MG TAB PO SCH (08:33)
--- NOTE | 2023-07-23 10:14 | P.PN ---
Progress Note - Text Progress Note Date: 07/23/23 In-Patient Follow-up Chief Complaint: I am feeling much better but did not sleep good. Subjective: The patient noted that she is feeling better than before but still feels depressed and anxious. She also has crying spells, body ache. The patient wants to get back on her Trintellix and Riperinol. The patient noted that attended one group yesterday and plans to attend groups today. Leading questions: The patient admitted to Depression and Anxiety. Denied SI or HI. Denied symptoms consistent with psychosis Sleep and Appetite: Her reported sleep is impaired. Appetite is good. Interim History: Behavioral Changes: No behavioral issues. She did receive Ativan twice since yesterday for anxiety and crying spells. PRN meds/isolation/restraints/ change in status: The patient got two doses of as needed Ativan. Change in medical condition: No change. Change in medications: The patient was started on Trazodone yesterday. Side effects from Medications: None. Objective- MSE: Alert and attentive. Orientation times three. Dressed and Groomed: Nicely. Pleasant and cooperative. Psychomotor Activity: Normal. Speech: Normal in tone, quality, and quantity. Mood: Depressed and Anxious but improved from before. Affect: Appropriate to the mood. SI or HI: None. Perceptual disturbance: None. Thought Content: No paranoia or other delusional thinking noted. Thought Process: Normal. Cognition: Intact Judgment and Insight: Good AIMS: Normal. Labs: Reviewed with patients. Vital signs: Stable Diagnosis: No change Plan and recommendation: Continue current Medications. Reinstate Trintillex. Monitor MS and side effects of medications and adjust medications accordingly. Provide supportive psychotherapy. The patient provided psychoeducation. The patient provided Substance abuse counseling. Smoke cessation therapy. The patient to continue attending the lucas activities. Lucas status: 15 mints check. CBC with Diff, CMP, TSH, Lipid Profile, HbA1c, EKG ordered. Medication Consent with explanation of risk/benefits and side effects: Explained and obtained.
[2023-07-23 11:25] LABS: ALT 59 U/L (4-34); AST 55 U/L (14-36); African American GFR (CKD) >90 (>60 ml/min/1.73 sqM); Albumin 4.2 g/dL (3.5-5.0); Alkaline Phosphatase 138 U/L (38-126); Anion Gap 9 mmol/L; Basophils # (A) 0.1 k/uL (0-0.2); Basophils % (A) 1 %; Blood Urea Nitrogen 20 mg/dL (7-17); Calcium 9.9 mg/dL (8.4-10.2); Carbon Dioxide 23 mmol/L (22-30); Chloride 105 mmol/L (98-107); Eosinophils # (A) 0.2 k/uL (0-0.7); Eosinophils % (A) 3 %; Glucose 129 mg/dL (74-99); HCT 49.4 % (34.0-46.0); HGB 16.5 gm/dL (11.4-16.0); Lymphocytes # (A) 1.4 k/uL (1.0-4.8); Lymphocytes % (A) 21 %; MCH 32.1 pg (25.0-35.0); MCHC 33.4 g/dL (31.0-37.0); MCV 96.1 fL (80.0-100.0); Mean Platelet Volume 9.3; Monocytes # (A) 0.5 k/uL (0-1.0); Monocytes % (A) 7 %; Neutrophils # (A) 4.5 k/uL (1.3-7.7); Neutrophils % (A) 66 %; Non-African American GFR(CKD) >90 (>60 ml/min/1.73 sqM); Platelet Count 271 k/uL (150-450); RBC 5.14 m/uL (3.80-5.40); RDW 14.1 % (11.5-15.5); Sodium 137 mmol/L (137-145); Total Bilirubin 0.6 mg/dL (0.2-1.3); Total Protein 7.3 g/dL (6.3-8.2); WBC 6.9 k/uL (3.8-10.6)
[2023-07-23] MEDS: traZODone HCL 50 MG TAB PO SCH (16:03)
[2023-07-23] MEDS: traZODone HCL 100 MG TAB PO SCH (20:30)
--- NOTE | 2023-07-24 12:57 | P.PN ---
Subjective Progress Note Date: 07/24/23 Principal diagnosis: Major depression recurrent nonpsychotic Subjective the patient says that she is way too sleepy with the trazodone during the day but did sleep well at night. She says when she takes her Trental X on a regular basis she is not tearful and works well on the serotonin functions. She continues to struggle with energy and drive and moderate depression. Objective she is cooperative came readily to talk to me and office somewhat decreased eye contact and slowed responses affect looks slow and may be a little depressed denies active suicidality. She she is oriented x 3 no signs of psychosis no pressure or signs of any brant. Able to understand abstract ideas and stay on topic. Assessment chronic depression that got worse when she came off her medicines needs to get back into support and counseling especially for dealing with alcohol since she almost from an overdose. Plan think I give her all the trazodone at night Trintellix in the morning and she is need to cut back into alcohol program she does have a sponsor she does go to and does not appear to be motivated to get back into what works. Objective - Vital Signs Vital signs: Vital Signs Temp 97.6 F 07/24/23 06:25 Pulse 103 H 07/24/23 08:39 Resp 16 07/24/23 06:25 BP 139/86 07/24/23 08:39 Pulse Ox 99 07/21/23 21:29 FiO2 - Labs CBC & Chem 7: 07/23/23 10:22 07/23/23 10:22
[2023-07-24] MEDS: LORazepam 1 MG TAB PO PRN (14:06)
[2023-07-24] MEDS: traZODone HCL 50 MG TAB PO SCH (20:27)
--- NOTE | 2023-07-25 08:21 | P.PN ---
Subjective Progress Note Date: 07/25/23 Principal diagnosis: Major depression recurrent nonpsychotic Subjective: the patient says that she was less sleepy yesterday afternoon without the daytime trazodone and did sleep well at night. She says when she takes her Trental X on a regular basis she is not tearful and works well on the serotonin functions. She was off for about a week so we'll start kicking in she is still waiting to easily tearful although not in session. She continues to struggle with energy and drive and moderate depression. Objective she is cooperative came up to me in the ponce and asked to talk to me. Eye contact is improved and responses are more alert and affect shows more energy than yesterday. She still feels a little depressed denies active suicidality. She is oriented x 3 no signs of psychosis no pressure or signs of any brant. Able to understand abstract ideas and stay on topic. Her plan for doing well after discharge include getting more active in her local latter day where she has been for a while has good friends at except her get some counseling from the past. Also she has family members understand her struggles and care and she is going to be in the [facility] and see if they have groups and counseling there continue her medication Assessment chronic depression that got worse when she came off her medicines needs to get back into support and counseling especially for dealing with alcohol since she almost from an overdose. Plan: Continue the trazodone at night at 150, Trintellix in the morning and she needs to get back into alcohol program she does have a sponsor and could tell me her name. I emphasized the importance of using the sponsor before you use alc ohol not after. She does go to and does appear to be motivated to get back into what works. No change in medication at this time Objective - Vital Signs Vital signs: Vital Signs Temp 97.6 F 07/24/23 06:25 Pulse 61 07/25/23 06:49 Resp 16 07/24/23 06:25 BP 117/55 07/25/23 06:49 Pulse Ox 99 07/21/23 21:29 FiO2 - Labs CBC & Chem 7: 07/23/23 10:22 07/23/23 10:22
--- NOTE | 2023-07-26 17:42 | P.PN ---
Progress Note - Text Progress Note Date: 07/26/23 In-Patient Follow-up Chief Complaint: I am much better mentally Subjective: The patient noted that she is feeling much better. The patient noted that she needs counselling. She blames herself for her current condition. She talked about her parents. She still feels sad about her parents very close to each other of cancer. Two months before that her fiaraceli . They were supposed to get . He suddenly dies of car accident. The patient noted that she started drinking at that time and has never got over it. She was 28 years of age then. The patient wants to go for counseling. She was crying off and on talking about this. The patient continues to feel depressed. Her anxiety is much better. She has not been taking Ativan and Librium. . She still has crying spells. She has been participating in cano milieu. The patient will resume going meeting and will reach out to her sponsor, who has been sober for 35 years. The patient plans to find a job after discharge. The patient is having bad migraine today. Leading questions: The patient admitted to Depression and Anxiety. Denied SI or HI. Denied symptoms consistent with psychosis Sleep and Appetite: Her reported sleep is impaired. Appetite is good. Interim History: Behavioral Changes: No behavioral issues. PRN meds/isolation/restraints/ change in status: None Change in medical condition: . The patient is having bad Migraine today Change in medications: The Librium to be reduced to 10 mg bid in the morning. D/C Trazodone BID dose. Side effects from Medications: None. Objective- MSE: Alert and attentive. Orientation times three. Dressed and Groomed: Nicely. Pleasant and cooperative. Psychomotor Activity: Normal. Speech: Normal in tone, quality, and quantity. Mood: Depressed. Affect: Appropriate to the mood. SI or HI: None. Perceptual disturbance: None. Thought Content: No paranoia or other delusional thinking noted. Thought Process: Normal. Cognition: Intact Judgment and Insight: Good AIMS: Normal. Labs: Reviewed with patients. Vital signs: Stable Diagnosis: No change Plan and recommendation: Continue current Medications. D/C Ativan, Reduce Librium to 10 mg bid. Add Buspar 10 mg. Monitor MS and side effects of medications and adjust medications accordingly. Provide supportive psychotherapy. The patient provided psychoeducation. The patient provided Substance abuse counseling. Smoke cessation therapy. The patient to continue attending the cano activities. Medication Consent with explanation of risk/benefits and side effects: Explained and obtained.
[2023-07-26] MEDS: SUMAtriptan succinate 50 MG TAB PO STA (18:00)
--- NOTE | 2023-07-26 19:19 | P.PN ---
Subjective Progress Note Date: 07/26/23 HISTORY OF PRESENT ILLNESS: This is a 48-year-old female with a previous medical history signif icant for anxiety, major depressive disorder, chronic alcohol use and dependence, has been on naltrexone 50 mg once every day, attention deficit disorder, chronic insomnia due to underlying medical condition and possible due to behavior disturbances, apparently the patient was last seen in my office about greater than a year ago, and she has been noncompliant with her office visit as the patient has lost her insurance after she left Dr. Colmenares's office as her workplace, and patient has been feeling more depressed recently according to her cousin who was at the bedside, she stated that the patient has been drinking at least half 1/5 of vodka on a daily basis, and she has been buying some Adderall from the street along with her current medications, she has been trying to come off the alcohol on her own without the help of medical supervisor, patient has been seen in the past by alcohol rehabilitation many years ago without any success, patient apparently was found incoherent with me ntal status changes sitting on the floor after she has fallen at least multiple times due to multiple bruises in both lower extremities, EMS was called after they found that the bottle of her Seroquel XR 300 mg was missing the pills and the patient was not able to give any information at that time, we assume that the patient has ingested 15 of her Seroquel XR and the patient was sent into the emergency department at [facility], she was seen in the ER, had a battery of laboratory evaluation that showed evidence of severe metabolic acidosis with bicarb level of 12, her lactic acid was negative, her CPK was normal, the patient was started on sodium bicarb drip and she was admitted to [facility] intensive care unit, she was placed on Precedex drip as well, and she was seen in consultation by pulmonary/critical care, and she will be seen in consultation by psychiatry, patient did well after 2-day in the hospital in the ICU, and she become more awake and alert, she stated that she never wanted to get home herself, but she was trying to go to sleep that is why she took Seroquel but she did not remember how many pills she took, patient apparently was seen in consultation by psychiatry and it was recommended for the patient to be admitted to the mental health unit at this time, therefore the patient was cleared medically to be transferred to the mental health unit today patient was rock sullivan in the mental health unit along with the nursing staff, she was laying down in bed in no apparent distress, she does complain of soreness in the buttock area due to blistering on the buttock due to laying on the floor for quite some time, no evidence of any rhabdomyolysis at this time, no evidence of any unusual issues she does appear to have significant bruising in the back as well as both lower extremities, patient will be started on zinc oxide of 20% to be applied to the bilateral buttock area covered with a Telfa change on a daily basis, and keep off load and try to sleep on the side we will start the patient on oral antibiotic in the form of Keflex 500 mg orally 3 times every day for 7 days just for infection prevention. 07/25: Patient is lying down in bed in no apparent distress, she complains of increased headache and she has not been getting her Nurtec since the pharmacy d oes not carry it in our formulary, they do not have Ubrelvy either, we will give the patient Imitrex 100 mg orally x 1, and reevaluate the patient in the next 24 hours, continue current treatment plan as per psychiatry most likely the patient will be discharged in the next 1 or 2 days, patient has made a lot of progress, she is to follow-up with me as an outpatient in 1 week from the discharge. REVIEW OF SYSTEMS: Constitutional: No documented fever, no chills, no night sweats. No weight change. positive for weakness, positive for lethargy. No daytime sleepiness. EENT: No headache. No blurred vision or double vision, no loss of vision. No loss of Hearing, no ringing in the ears, no dizziness. No nasal drainage or congestion. No epistaxis. No sore throat. Lungs: No shortness of breath, no cough, no sputum production. No wheezing. Reports dyspnea with activity. Cardiovascular: No chest pain, no lower extremity edema. No palpitations. No paroxysmal nocturnal dyspnea. No orthopnea. No lightheadedness or dizziness. No syncopal episodes. Abdominal: Reports abdominal pain. No nausea, vomiting. No diarrhea. No constipation. No bloody or tarry stools reports loss of appetite. Genitourinary: No dysuria, increased frequency, urgency. No urinary retention. Musculoskeletal: No myalgias. No muscle weakness, no gait dysfunction, no frequent falls. positive for back pain. No neck pain. Integumentary: Bilateral carpet george to both buttock area with minimal denuded blisters, no lesions. No rash or pruritus. Multiple bruising. No change in hair or nails. Neurologic: No aphasia. No facial droop. positive for change in mentation. No head injury. positive for migraine headache. No paralysis. No paresthesia. Psychiatric: positive for depression, anxiety and denies suicidal ideation. Endocrine: No abnormal blood sugars. No weight change. PHYSICAL EXAMINATION: General: 48-year-old female laying down in bed in no apparent distress. HEENT: Head is atraumatic, normocephalic, pupils were equal round reactive to light and recommendation, extraocular muscle movement were intact, sclera nonicteric, conjunctivae were pale, mucous membranes of the mouth are somewhat dry. Neck: Supple, no JVP, normal carotid upstroke bilaterally, no lymphadenopathy. Chest: Decreased breath sounds at the bases, few rhonchi, no expiratory wheezes, no chest wall tenderness, no intercostal retractions. Heart: First heart sound is normal, second heart sound is normal there os no gallop or murmur Abdomen: Soft, nontender, nondistended, positive bowel sounds. Extremities: There is no edema no calf tenderness DP +2 bilaterally. Neurologic examination: Patient is awake alert and oriented x 3, cranial nerves II to XII appear grossly intact, muscle power 5 out of 5 in upper and lower extremities bilaterally no tremors, deep tendon reflexes were normal. Skin examination: There is minimal carpet george to bilateral buttock area with denuded blisters minimal erythema no drainage multiple bruising to the lower extremities as well as the upper back. ASSESSMENT AND PLAN: 1. Major depressive disorder patient denies suicidal thoughts or ideation. Continue patient on Trintellix 20 mg orally once every day, monitor the patient in the mental health unit, continue other treatment as per the mental health unit team. 2. Suicidal attempt. Patient is doing a lot better, she is in a good spot and she would want to get better. She continues to participate in therapy. 3. Migraine headaches. Since the patient is not able to get Nurtec or Ubrelvy start the patient on Imitrex 100 mg x 1. 4. Attention deficit disorder. Keep the patient off stimulant for now. 5. Chronic alcohol use and dependence. Continue patient on lorazepam as needed, continue patient also on thiamine 100 mg orally once every day, B12 1000 mcg orally once every day as well as folic acid 1 mg once every day, multivitamin once every day, continue with the chlordiazepoxide 10 mg orally 3 times every day. Patient is already on lorazepam as needed for agitation or withdrawal. 6. Major depressive disorder with suicidal thoughts and ideation. Continue current treatment with Trintellix 20 mg orally once a day, monitor the patient very closely. 7. Anxiety disorder. We will continue with current treatment plan. 8. Restless leg syndrome. hold off ropinirole for now. 9. Insomnia. Continue patient on trazodone 150 mg at bedtime. 10. Multiple bruises in both lower extremities secondary to a fall due to drug overdose. Stable. 11. Bilateral buttock abrasions with denuded blisters. Continue zinc oxide 20% covered with Telfa offload, turning the patient every 2 hours, sleep on that side. Start the patient on cephalexin 500 mg orally 3 times every day for 7 days for infection prevention. 12. DVT prophylaxis. Lovenox 40 mg subcutaneous every 24 hours. 13. GI prophylaxis. Continue patient on Protonix 40 milligram orally once every day, famotidine 40 mg at bedtime, Carafate 1 g orally twice every day. Objective - Vital Signs Vital signs: Vital Signs Temp 97.5 F L 07/26/23 16:07 Pulse 88 07/26/23 16:07 Resp 16 07/26/23 16:07 BP 136/83 07/26/23 16:07 Pulse Ox 98 07/26/23 16:07 FiO2 - Labs CBC & Chem 7: 07/23/23 10:22 07/23/23 10:22
[2023-07-26] MEDS: busPIRone HCl 10 MG TAB PO SCH (20:37)
--- NOTE | 2023-07-27 22:24 | P.PN ---
Progress Note - Text Progress Note Date: 07/27/23 In-Patient Follow-up Chief Complaint: I am feeling very good Subjective: The patient noted that she is feeling very good. She has had no crying spells. She is regaining her confidence. The patient making plans for her future. She some definite goals. She looking forward to be discharged. The patient noted that she is going to get a job, start going to AA meetings. She is going reconnect herself with her sponsor. She seems very motivated to give up drinking. She has sobriety for 6-12 months in the past. She blames alcoholism for her depression beside previous losses. The patient noted that she has been compliant with her medications. She compliant with going to cano activities. She feels that she is stable to be discharge tomorrow. The patient uncle or cousin can pick her up. Overall, pt stable to be discharged, if no changes in MS. Leading questions: The patient denied being Depressed. Her anxiety is significantly better. Denied SI or HI. Denied symptoms consistent with psychosis Sleep and Appetit: Good. Interim History: Behavioral Changes: No behavioral issues. PRN meds/isolation/restraints/ change in status: None Change in medical condition: None Change in medications: None. Side effects from Medications: None. Objective- MSE: Alert and attentive. Orientation times three. Dressed and Groomed: Nicely. Pleasant and cooperative. Psychomotor Activity: Normal. Speech: Normal in tone, quality, and quantity. Mood: Good. Affect: Appropriate to the mood. SI or HI: None. Perceptual disturbance: None. Thought Content: No paranoia or other delusional thinking noted. Thought Process: Normal. Cognition: Intact Judgment and Insight: Good AIMS: Normal. Labs: No new labs. Vital signs: Stable Diagnosis: No change Plan and recommendation: Continue current Medications. Monitor MS and side effects of medications and adjust medications accordingly. Provide supportive psychotherapy. The patient provided psychoeducation. The patient provided Substance abuse counseling. Smoke cessation therapy. The patient to continue attending the cano activities. Medication Consent with explanation of risk/benefits and side effects: Explained and obtained. Discharge tomorrow, if no changes in MS. Social work to make arrangement for safe disposition and out-pt follow-up appointment with psychiatry and PCP.
[2023-07-28 08:53] VITALS: BP 142/85; PULSE 89; RESP 18; TEMP 97
--- NOTE | 2023-07-28 22:23 | P.DS ---
Providers Date of admission: 07/21/23 20:16 Expected date of discharge: 07/28/23 Attending physician: Maximus Webb MD Consults: 07/21/23 18:53 Consult Physician Routine Consulting Provider: Pricila Nance Consult Reason/Comments: H&P Do you want consulting provider notified?: Yes Primary care physician: Pricila Lee Ann - Discharge Diagnosis(es) (1) Major depressive disorder, recurrent Status: Acute (2) Dysthymic disorder Status: Acute Priority: Medium (3) EtOH dependence Status: Acute Priority: Medium (4) Marijuana abuse Status: Acute Priority: Medium Hospital Course: Discharge Summary HPI: Identifying Data: Ms. Candie Peter is 48 years old, single, WF, who lives in [place], [place] in a one-bedroom house by herself. Chief Complaint: I tried to withdraw myself off Alcohol on my own. History of Psychiatric Illness: The patient noted that she was trying to get off alcohol on her own cold turkey. On the third day of her being off alcohol, the patient became confused, disoriented, started hallucinating and frightened. She fell and bruised her face. She took Seroquel to go to sleep but does not remember how many she took or many times she took. The patient that she had no intentions of killing herself. She could not remember the details of that evening. Next morning her cousin came and found her on the floor. She called the ambulance and brought patient to the ER. The patient was admitted to the ICU, where she was seen by Psychiatry for Sucidality. The patient was transferred to [facility] on 07/21/2023 for further management after being medically cleared. Currently, the patient experiencing symptoms of depression, anxiety, being shaky and withdrawal symptoms. She described withdrawal symptoms such as headache, body ache, trembling, severe anxiety. The patient expressed concern about job and financial issues. The patient feels very frustrated with Alcohol addiction and repeated relapse. The patient stated, I am tired of doing this again and again. She cried few times during this evaluation. Her depressive symptomatology consists of being sad, loneliness, crying spells, loss of motivation, social isolation, guilt feeling and sense of worthlessness. She denied being hopeless, or suicidal. The patient was taking Trintellix, Buspar, Seroquel. Leading questions: The patient admitted to Depression and Anxiety. Denied SI or HI. Denied symptoms consistent with psychosis. Hospital Course: After admission to the [facility]. The patient was continued Alcohol Detox regimen. The patient using quite a bit of Ativan and regular dose of Librium. The Ciwa protocol was discontinued and Librium was tapered off. The patient also started on Her Home Medication except Seroquel. It was substituted by Trazodone for sleep. She also provided individual psychodynamic supportive therapy and involved in cano activities. The patient should slow improvement in her symptoms. Her suicidal thoughts abated. Her depression and anxiety markedly improved. The patient developed good insight her drug dependence seemed very motivated to seek out-pt treatment Alcoholism beside her psychiatric follow -up. Overall, patient achieved stable MS to be discharge as an out-pt. She was discharged to home with out-pt appointment. She was also advised to go to AA meetings and get in touch with her sponsor. She was advised to follow-up with her PCP for her medical condition. MSE: Alert and attentive. Orientation times three Dressed and Groomed: Appropriately in hospital clothes. Pleasant and cooperative. Psychomotor Activity: Normal. Speech: Normal in tone, quality, and quantity. Mood: Depressed and Anxious. Affect: Consistent with mood. SI or HI: None. Perceptual disturbance: None. Thought Content: No paranoia or other delusional thinking noted. Thought Process: Normal. Cognition: Intact Judgment and Insight: Good Diagnosis: Diagnosis: Major Depressive Disorder, Severe, recurrent Dysthymic Disorder Alcohol Dependence Marijuana Abuse Plan: The patient to be discharged today. The patient has attained good improvement since admission. She e is stable to be followed as an outpatient. The patient is not suicidal or Homicidal. He does not pose any harm to self or others. The patient remains at a greater risk of self-harm or harm to others than general population on a chronic basis due to psychiatric illness and substance abuse. The patient will continue taking following medication post discharge. The importance of medication compliance and maintaining regular appointments at psychiatric out-pt and PCP clinic was explained and encouraged. The patient was also advised to seek alcohol counseling and attend AA meetings. The understood and agreed with the recommendations. workers compensation claims examiner to arrange for and conduct family meeting to ensure safety upon discharge and answer any questions. The social welfare administrator to arrange for patients follow-up appointments at [facility] for psychiatric care along with follow-up with PCP. Advised to call 911 or go to nearest ED or call this hospital in case of acute worsening of symptomatology, severe side effects or having suicidal, homicidal thoughts and feeling unsafe at home. Patient Condition at Discharge: Stable Plan - Discharge Summary Discharge Rx Participant: No New Discharge Prescriptions: New Multivitamins, Thera [Multivitamin (formulary)] 1 each PO DAILY tab Cyanocobalamin [Vitamin B-12] 1,000 mcg PO DAILY tab traZODone HCL [Desyrel] 150 mg PO HS 30 Days #90 tab Folic Acid 1 mg PO DAILY tab Albuterol Inhaler [Ventolin Hfa Inhaler] 2 puff INHALATION RT-Q4H PRN each PRN Reason: Shortness Of Breath Continue Metoprolol Succinate (ER) [Toprol XL] 50 mg PO DAILY Famotidine [Pepcid] 40 mg PO HS tab Thiamine [Vitamin B-1] 100 mg PO DAILY tab Albuterol Sulfate [Albuterol Sulfate Hfa] 2 puff PO RT-Q4H PRN PRN Reason: Shortness Of Breath Rimegepant Sulfate [Nurtec Odt] 75 mg PO DAILY PRN 30 Days #30 tab PRN Reason: Migraine Headache Vortioxetine Hydrobromide [Trintellix] 20 mg PO DAILY 30 Days #30 tab Discontinued chlordiazePOXIDE HCl [Librium] 25 mg PO TID cap Pantoprazole [Protonix] 40 mg PO AC-BRKFST tab Ondansetron [Zofran] 4 mg PO Q8HR PRN PRN Reason: Nausea And Vomiting rOPINIRole HCL [Requip] 0.5 mg PO HS Sucralfate [Carafate] 1 gm PO AC-BID tab Nicotine 14Mg/24Hr Patch [Habitrol] 1 patch TRANSDERM DAILY patch Acetaminophen Tab [Tylenol] 650 mg PO Q6HR PRN tab PRN Reason: Fever And/ Or Pain Discharge Medication List Albuterol Sulfate [Albuterol Sulfate Hfa] 2 puff PO RT-Q4H PRN 07/19/23 [History] Metoprolol Succinate (ER) [Toprol XL] 50 mg PO DAILY 07/19/23 [History] Famotidine [Pepcid] 40 mg PO HS tab 07/21/23 [Rx] Thiamine [Vitamin B-1] 100 mg PO DAILY tab 07/21/23 [Rx] Albuterol Inhaler [Ventolin Hfa Inhaler] 2 puff INHALATION RT-Q4H PRN each 07/28/23 [Rx] Cyanocobalamin [Vitamin B-12] 1,000 mcg PO DAILY tab 07/28/23 [Rx] Folic Acid 1 mg PO DAILY tab 07/28/23 [Rx] Multivitamins, Thera [Multivitamin (formulary)] 1 each PO DAILY tab 07/28/23 [Rx] Rimegepant Sulfate [Nurtec Odt] 75 mg PO DAILY PRN 30 Days #30 tab 07/28/23 [Rx] Vortioxetine Hydrobromide [Trintellix] 20 mg PO DAILY 30 Days #30 tab 07/28/23 [Rx] traZODone HCL [Desyrel] 150 mg PO HS 30 Days #90 tab 07/28/23 [Rx] Follow up Appointment(s)/Referral(s): [facility] [Outside] - 1 Week [facility] [Outside] - 07/29/23 9:30 am (with [place]) Pricila Nance MD [Primary Care Provider] - 1 Week Patient Instructions/Handouts: Dysthymic Disorder (DC), Abuse of Alcohol (ED), Cannabis Abuse (DC) Activity/Diet/Wound Care/Special Instructions: Avoid the use of street drugs and alcohol. Take all medications as prescribed. When you are in need of refills on your medications, please contact your medical provider and/or outpatient psychiatrist/provider to have this done. Please go to your scheduled outpatient appointment for aftercare treatment. If symptoms return or become worse, call the crisis line at and/or go to the nearest emergency room for evaluation. National Suicide Hotline 063. Discharge Disposition: HOME SELF-CARE
== END 2023-07-28 15:18 | disposition home or self-care (01) | DRG 751 ==
LOC: 3MHU 20:16
PROVIDERS: ADMIT Psychiatry & Neurology Psychiatry; ATTEND Psychiatry & Neurology Psychiatry
DX: F33.2 Major depressive disorder, recurrent severe without psychotic features (principal); F12.10 Cannabis abuse, uncomplicated; F10.239 Alcohol dependence with withdrawal, unspecified; E87.20 Acidosis, unspecified; F34.1 Dysthymic disorder; F41.9 Anxiety disorder, unspecified; G25.81 Restless legs syndrome; F98.8 Other specified behavioral and emotional disorders with onset usually occurring in childhood and adolescence; G43.909 Migraine, unspecified, not intractable, without status migrainosus; G47.00 Insomnia, unspecified; I10 Essential (primary) hypertension; S30.810A Abrasion of lower back and pelvis, initial encounter; T43.591A Poisoning by other antipsychotics and neuroleptics, accidental (unintentional), initial encounter; Z60.4 Social exclusion and rejection; K21.9 Gastro-esophageal reflux disease without esophagitis; S30.0XXA Contusion of lower back and pelvis, initial encounter; S20.229A Contusion of unspecified back wall of thorax, initial encounter; S80.12XA Contusion of left lower leg, initial encounter; S80.11XA Contusion of right lower leg, initial encounter; W19.XXXA Unspecified fall, initial encounter; Z59.9 Problem related to housing and economic circumstances, unspecified; Z79.899 Other long term (current) drug therapy; Z91.199 Patient's noncompliance with other medical treatment and regimen due to unspecified reason; Z81.8 Family history of other mental and behavioral disorders; Z60.2 Problems related to living alone; Z28.21 Immunization not carried out because of patient refusal; Z87.891 Personal history of nicotine dependence; Z91.81 History of falling; Z59.7 Insufficient social insurance and welfare support
CPT/HCPCS: 80053; 83036; 84443; 85025

== ENCOUNTER 2023-10-02 14:31 | Inpatient (IN) | payer OTHER ==
--- NOTE | 2023-10-02 15:23 | ED ---
General Adult HPI - General Source: patient Mode of arrival: ambulatory Limitations: no limitations <Jose Hollingsworth - Last Filed: 10/02/23 17:21> <Christiano Colmenares - Last Filed: 10/03/23 13:04> - General Chief complaint: Psychiatric Symptoms Stated complaint: suicidal thoughts/hallucinations Time Seen by Provider: 10/02/23 14:40 - History of Present Illness Initial comments: Dictation was produced using [employer] dictation software. please excuse any grammatical, word or spelling errors. Chief Complaint: 48-year-old female presents to the emergency department with hallucinations, suicidal thoughts and frequent falls History of Present Illness: Patient 48-year-old female she takes psychiatric medications. States that she started 1 approximately 1 month ago. Over the last several weeks she has been having worsening mentation including visual hallucinations, feelings of paranoia. Patient has been suffering from frequent falls for the last several weeks. She states that last night she fell and hit her head. States she feels anxious. The ROS documented in this emergency department record has been reviewed and confirmed by me. Those systems with pertinent positive or negative responses have been documented in the HPI. All other systems are other negative and/or noncontributory. (Jose Hollingsworth) - Related Data Home Medications Medication Instructions Recorded Confirmed Albuterol Sulfate [Albuterol 2 puff INHALATION RT-Q4H PRN 07/19/23 10/02/23 Sulfate Hfa] Metoprolol Succinate (ER) [Toprol 50 mg PO HS 07/19/23 10/02/23 XL] Immune Support 1 tab PO DAILY 10/02/23 10/02/23 Multivitamins, Thera [Multivitamin 1 tab PO DAILY 10/02/23 10/02/23 (formulary)] Naltrexone HCl [Revia] 50 mg PO DAILY 10/02/23 10/02/23 QUEtiapine FUMARATE [SEROquel] 300 mg PO HS 10/02/23 10/02/23 busPIRone HCL 15 mg PO BID 10/02/23 10/02/23 busPIRone HCL 15 mg PO DAILY PRN 10/02/23 10/02/23 ondansetron HCL [Zofran] 8 mg PO DAILY PRN 10/02/23 10/02/23 rOPINIRole HCL [Requip] 0.5 mg PO HS 10/02/23 10/02/23 Previous Rx's Medication Instructions Recorded Rimegepant Sulfate [Nurtec Odt] 75 mg PO DAILY PRN 30 Days #30 tab 07/28/23 Allergies Allergy/AdvReac Type Severity Reaction Status Date / Time bupropion [From [facility]] AdvReac Hallucinati Verified 10/02/23 19:54 ons dextromethorphan AdvReac Hallucinati Verified 10/02/23 19:54 [From [facility]] ons Review of Systems ROS Other: All systems not noted in ROS Statement are negative. <Jose Hollingsworth - Last Filed: 10/02/23 17:21> ROS Other: All systems not noted in ROS Statement are negative. <Christiano Colmenares - Last Filed: 10/03/23 13:04> ROS Statement: Those systems with pertinent positive or pertinent negative responses have been documented in the HPI. Past Medical History Past Medical History: GERD/Reflux Additional Past Medical History / Comment(s): migraines,nodules on thyroid History of Any Multi-Drug Resistant Organisms: None Reported Past Surgical History: Cholecystectomy, Orthopedic Surgery Additional Past Surgical History / Comment(s): hand surg., bankart procedure lef t shoulder, left ulnar nerve surgery Past Anesthesia/Blood Transfusion Reactions: No Reported Reaction Past Psychological History: ADD/ADHD, Depression Smoking Status: Former smoker Past Alcohol Use History: Abuse, Daily, Heavy Past Drug Use History: Marijuana - Past Family History Father Family Medical History: Cancer Additional Family Medical History / Comment(s): Esophageal cancer Mother Family Medical History: Thyroid Disorder Additional Family Medical History / Comment(s): depression <Jose Hollingsworth - Last Filed: 10/02/23 17:21> General Exam Limitations: no limitations <Jose Hollingsworth - Last Filed: 10/02/23 17:21> - General Exam Comments Initial Comments: PHYSICAL EXAM: General Impression: Alert and oriented x3, not in acute distress HEENT: Most recent hematoma to right periorbit, extra-ocular movements intact, pupils equal and reactive to light bilaterally, mucous membranes moist. Cardiovascular: Heart regular rate and rhythm Chest: Able to complete full sentences, no retractions, no tachypnea Abdomen: abdomen soft, non-tender, non-distended, no organomegaly Musculoskeletal: Pulses present and equal in all extremities, no peripheral edema, multiple bruises throughout all her extremities of varying ages Motor: no focal deficits noted Neurological: CN II-XII grossly intact, no focal motor or sensory deficits noted Skin: Intact with no visualized rashes Psych: Normal affect and mood (Jose Hollingsworth) Course Vital Signs 10/02/23 10/02/23 10/02/23 14:36 15:38 15:45 Temperature 98.2 F Pulse Rate 90 110 H Respiratory 20 20 20 Rate Blood Pressure 161/105 150/90 O2 Sat by Pulse 96 98 Oximetry 10/02/23 10/02/23 10/02/23 16:00 18:00 21:16 Temperature 98.6 F Pulse Rate 100 88 83 Respiratory 20 16 16 Rate Blood Pressure 130/80 136/89 116/83 O2 Sat by Pulse 98 98 97 Oximetry 10/03/23 10/03/23 04:09 11:28 Temperature 98.4 F 98.2 F Pulse Rate 67 85 Respiratory 15 16 Rate Blood Pressure 112/69 120/77 O2 Sat by Pulse 98 98 Oximetry EKG Findings - EKG Comments: EKG Findings:: My EKG interpretation: Ventricular rate 66, sinus rhythm,. Oval 170, cures S1 12, QTc 421. No AL prolongation, no QTC prolongation, no ST or T- wave changes noted. Overall, this EKG is unremarkable <Jose Hollingsworth - Last Filed: 10/02/23 17:21> Medical Decision Making - Lab Data Result diagrams: 10/02/23 15:26 <Jose Hollingsworth - Last Filed: 10/02/23 17:21> - Lab Data Result diagrams: 10/02/23 15:26 <Christiano Colmenares - Last Filed: 10/03/23 13:04> - Medical Decision Making Was pt. sent in by a medical professional or institution (, PA, SANFORIZER, urgent care, hospital, or long-term...) When possible be specific @ -No Did you speak to anyone other than the patient for history (EMS, parent, family, police, friend...)? What history was obtained from this source @ -No Did you review nursing and triage notes (agree or disagree)? Why? @ -I reviewed and agree with nursing and triage notes Were old charts reviewed (outside hosp., previous admission, EMS record, old EKG, old radiological studies, urgent care reports/EKG's, long-term records)? Report findings @ -No old charts were reviewed Differential Diagnosis (chest pain, altered mental status, abdominal pain women, abdominal pain men, vaginal bleeding, musculoskeletal, weakness, fever, dyspnea, syncope, headache, dizziness, GI bleed, back pain, seizure, CVA, palpatations, mental health)? @ -Differential Mental Health: Depression, anxiety, bipolar, psychosis, schizophrenia, borderline personality, situational depression, adjustment disorder, behavioral disorder, brain tumor, malingering, substance abuse, encephalopathy, medication reaction, dementia, hypothyroidism, degenerative neurologic disorder, lupus.... This is not meant to be all-inclusive list EKG interpreted by me (3pts min.). @ -As nigel X-rays interpreted by me (1pt min.). @ -Chest x-ray pelvis x-ray shows no acute processes. CT interpreted by me (1pt min.). @ -CT scan of brain shows no acute intracranial processes. U/S interpreted by me (1pt. min.). @ -None done What testing was considered but not performed or refused? (CT, X-rays, U/S, labs)? Why? @ -None What meds were considered but not given or refused? Why? @ -None Was smoking cessation discussed for >3mins.? @ -No Were there social determinants of health that impacted care today? How? (Homelessness, low income, unemployed, alcoholism, drug addiction, transportation, low edu. Level, literacy, decrease access to med. care, long term, rehab)? @ -Alcoholism Was there de-escalation of care discussed even if they declined (Discuss DNR or withdrawal of care, Hospice)? DNR status @ -No What co-morbidities impacted this encounter? (DM, HTN, Smoking, COPD, CAD, Cancer, CVA, ARF, Chemo, Hep., AIDS, mental health diagnosis, sleep apnea, morbid obesity)? @ -None Was patient admitted / discharged? Hospital course, mention meds given and route, prescriptions, significant lab abnormalities, going to OR and other pertinent info. @ -48-year-old female presents to the emergency department hallucinations and suicidal ideation. Vital signs stable. Laboratory evaluation obtained. Mild ketoacidosis. Serum alcohol 226. Patient has been suffering frequent falls. Trauma workup performed. Imaging studies are negative. Patient be medically cleared pending sobriety from alcohol Did you discuss the management of the patient with other professionals (pro fessionals i.e. , PA, SANFORIZER, lab, RT, psych nurse, social media director, medication aide, teacher, legal compliance officer, caseworker protective services)? Give summary @ -No Was critical care preformed (if so, how long)? @ -No Undiagnosed new problem with uncertain prognosis? @ -No Drug Therapy requiring intensive monitoring for toxicity (Heparin, Nitro, Insulin, Cardizem)? @ -No Were any procedures done? @ -No Diagnosis/symptom? Acute, or Chronic, or Acute on Chronic? Uncomplicated (without systemic symptoms) or Complicated (systemic symptoms)? @ -Hallucinations, suicidal ideation Side effects of treatment? @ -No Exacerbation, Progression, or Severe Exacerbation? @ -No Poses a threat to life or bodily function? How? (Chest pain, USA, LA, pneumonia, PE, COPD, DKA, ARF, appy, cholecystitis, CVA, Diverticulitis, Homicidal, Suicidal, threat to staff... and all critical care pts) @ -yes (Jose Hollingsworth) Patient is a 48-year-old female who has been holding in the ER. Patient was med ically cleared by the prior provider. Presented with a contact station as well as acceptance of hallucinations that she attributes to her medications, paranoia, as well as suicidal ideations. Has had frequent falls as well. Pending psychiatric evaluation. However when patient became sober, psych evaluated the patient but patient was still undergoing alcohol withdrawals despite being on CIWA protocol. CIWA approximately 8-10. I was notified by nursing staff that psych recommended medicine admission and they will evaluate her on an inpatient basis. I do believe this is reasonable. I evaluated patient and agree with the assessment. I will repeat basic labs at this time. CIWA protocol with ready ordered. She is tolerating oral intake and therefore I will hold off on IV fluids at this time at her request. Home meds will be ordered. Psych will be consulted. Suicide precautions and sitter ordered. I spoke with the admitting physician, PCP Dr. Nance who accepted the admission. Of note, patient did fall while she was here and imaging was obtained. This was yesterday. Imaging was unremarkable other than contusions to the right side of the face. CT of the brain, cervical spine as interpreted by myself otherwise unremarkable. Chest x-ray and pelvis x-ray interpreted by myself otherwise unremarkable. Diagnosis/symptom? @ -Fall, facial contusions Acute, or Chronic, or Acute on Chronic? @ -Acute Uncomplicated (without systemic symptoms) or Complicated (systemic symptoms)? @ -Uncomplicated Side effects of treatment? @ -None Exacerbation, Progression, or Severe Exacerbation] @ -No Poses a threat to life or bodily function? @ -No Diagnosis/symptom? @ -Alcohol intoxication and alcohol withdrawal, suicidal ideations, hallucinations Acute, or Chronic, or Acute on Chronic? @ -Acute Uncomplicated (without systemic symptoms) or Complicated (systemic symptoms)? @ -Complicated Side effects of treatment? @ -None Exacerbation, Progression, or Severe Exacerbation] @ -No Poses a threat to life or bodily function? @ -Yes (Christiano Colmenares) - Lab Data Lab Results 10/02/23 Range/Units 15:26 Sodium 140 (137-145) mmol/L Potassium 3.7 (3.5-5.1) mmol/L Chloride 104 (98-107) mmol/L Carbon Dioxide 19 L (22-30) mmol/L Anion Gap 17 mmol/L BUN 8 (7-17) mg/dL Creatinine 0.77 (0.52-1.04) mg/dL Est GFR (CKD-EPI)AfAm >90 (>60 ml/min/1.73 sqM) Est GFR (CKD-EPI)NonAf >90 (>60 ml/min/1.73 sqM) Glucose 90 (74-99) mg/dL Calcium 9.4 (8.4-10.2) mg/dL Total Bilirubin 1.1 (0.2-1.3) mg/dL AST 35 (14-36) U/L ALT 17 (4-34) U/L Alkaline Phosphatase 102 (38-126) U/L Total Protein 7.5 (6.3-8.2) g/dL Albumin 5.0 (3.5-5.0) g/dL Serum Alcohol 226 H* mg/dL Disposition <Jose Hollingsworth - Last Filed: 10/02/23 17:21> Time of Disposition: 12:50 <Christiano Colmenares - Last Filed: 10/03/23 13:04> Clinical Impression: Alcohol abuse with withdrawal, Suicidal ideations, Hallucinations Disposition: ADMITTED IP TO THIS [facility] Condition: Stable
[2023-10-02] MEDS: ALPRAZolam 1 MG TAB PO STA (15:41)
[2023-10-02 15:56] LABS: ALT 17 U/L (4-34); AST 35 U/L (14-36); African American GFR (CKD) >90 (>60 ml/min/1.73 sqM); Alkaline Phosphatase 102 U/L (38-126); Anion Gap 17 mmol/L; Blood Urea Nitrogen 8 mg/dL (7-17); Calcium 9.4 mg/dL (8.4-10.2); Carbon Dioxide 19 mmol/L (22-30); Chloride 104 mmol/L (98-107); Glucose 90 mg/dL (74-99); Non-African American GFR(CKD) >90 (>60 ml/min/1.73 sqM); Potassium 3.7 mmol/L (3.5-5.1); Sodium 140 mmol/L (137-145); Total Bilirubin 1.1 mg/dL (0.2-1.3); Total Protein 7.5 g/dL (6.3-8.2)
[2023-10-02 16:21] LABS: Alcohol 226 mg/dL
--- NOTE | 2023-10-02 17:16 | CT ---
EXAMINATION TYPE: CT brain lukeine wo con DATE OF EXAM: 10/02/2023 COMPARISON: 07/19/2023 HISTORY: 48-year-old female Hallucinations after new medication, fall- right eye hematoma CT DLP: 1252.7 mGycm Automated exposure control for dose reduction was used. Technique: Examination of the head was done in axial plane without intravenous contrast. Coronal and sagittal reconstructions performed. CT of the cervical spine was obtained in axial plane without intravenous injection of contrast mater ial. Coronal and sagittal reformatted images were obtained from the axial views for evaluation of f ractures, spinal alignment and canal. FINDINGS: Head: There is no evidence of acute intracranial hemorrhage, acute ischemic changes, mass, mass-effect, or extra-axial fluid collection. There is no effacement of cerebral sulci or basal subarachnoid cister ns. There is no hydrocephalus. There is no midline shift. Berry-white matter distinction is preserv ed. Complete opacification right maxillary sinus, disease worsened compared to 07/19/2023. Mastoid air cecilia ls well pneumatized. Orbits and globes appear intact but with right periorbital and anterior right fr ontal soft tissue contusion. No underlying calvarial fracture. Cervical spine: The alignment of the cervical spine is normal on coronal and reformatted images. There is no cranial vertebral abnormality. Fracture of the cervical spine is not seen. Mild uncovertebral joint arthropat hy especially C2-C3. There is no evidence of focal disk herniation. There is no central spinal canal stenosis. Sagittal and coronal reformatted images confirm above findings. COMBINED IMPRESSION: 1. Right periorbital and anterior right frontal soft tissue contusions. No acute intracranial abnorma lity seen. 2. No acute fracture or malalignment of the cervical spine. 3. Severe chronic right maxillary sinus disease.
--- NOTE | 2023-10-02 17:17 | XR ---
EXAMINATION TYPE: XR chest 1V portable, XR pelvis AP view DATE OF EXAM: 10/02/2023 Comparison: 07/19/2023 Clinical History: 48-year-old female pain after fall Findings: Chest: The cardiomediastinal silhouette, aorta, and pulmonary vasculature are within normal limits. Lungs and pleural spaces are clear. Surgical screws left glenoid area Pelvis: SI joints appear symmetric and intact as does the pubic symphysis. Hips are intact. No acute fracture , subluxation, dislocation. Posterior fusion defect at L5. Impression: 1. Chest: No acute cardiopulmonary process. 2. Pelvis: No acute osseous abnormality seen.
[2023-10-02] MEDS: HYDROcodone/APAP 5-325MG 1 EACH TAB PO STA (18:26)
[2023-10-02] MEDS: IBUPROFEN 800 MG TAB PO STA (21:09)
[2023-10-02] MEDS: CALCIUM CARBONATE 500 MG CHEWABLE PO STA (21:09)
[2023-10-03] MEDS ORDERED: LORazepam 2 MG/ML INJ IV PRN (06:08)
[2023-10-03] MEDS: LORazepam 2 MG/ML INJ IV PRN ×2 (06:18→06:44)
[2023-10-03] MEDS: ACETAMINOPHEN TAB 325 MG TAB PO PRN ×2 (12:31→16:04)
[2023-10-03] MEDS ORDERED: NALOXONE 0.4 MG/ML 1 ML VIAL IV PRN (12:45)
[2023-10-03] MEDS ORDERED: ONDANSETRON 4 MG/2 ML VIAL IVP PRN (12:45)
[2023-10-03] MEDS ORDERED: ALBUTEROL NEBULIZED 2.5 MG/3 ML INHALATION PRN (12:47)
[2023-10-03 13:41] LABS: WBC 4.5 k/uL (3.8-10.6)
[2023-10-03 13:42] LABS: Basophils # (A) 0.1 k/uL (0-0.2); Basophils % (A) 1 %; Eosinophils # (A) 0.1 k/uL (0-0.7); Eosinophils % (A) 2 %; HCT 41.4 % (34.0-46.0); HGB 13.4 gm/dL (11.4-16.0); Lymphocytes # (A) 1.4 k/uL (1.0-4.8); Lymphocytes % (A) 32 %; MCH 30.7 pg (25.0-35.0); MCHC 32.4 g/dL (31.0-37.0); MCV 94.8 fL (80.0-100.0); Mean Platelet Volume 7.5; Monocytes # (A) 0.3 k/uL (0-1.0); Monocytes % (A) 6 %; Neutrophils # (A) 2.6 k/uL (1.3-7.7); Neutrophils % (A) 57 %; Platelet Count 212 k/uL (150-450); RBC 4.36 m/uL (3.80-5.40); RDW 13.2 % (11.5-15.5)
[2023-10-03 13:59] LABS: Potassium 3.9 mmol/L (3.5-5.1)
[2023-10-03 14:00] LABS: ALT 17 U/L (4-34); AST 40 U/L (14-36); African American GFR (CKD) >90 (>60 ml/min/1.73 sqM); Albumin 4.3 g/dL (3.5-5.0); Albumin/Globulin Ratio 1.8; Alkaline Phosphatase 81 U/L (38-126); Anion Gap 12 mmol/L; Blood Urea Nitrogen 11 mg/dL (7-17); Calcium 9.3 mg/dL (8.4-10.2); Carbon Dioxide 22 mmol/L (22-30); Chloride 102 mmol/L (98-107); Globulin 2.4 g/dL; Glucose 87 mg/dL (74-99); Non-African American GFR(CKD) >90 (>60 ml/min/1.73 sqM); Sodium 136 mmol/L (137-145); Total Bilirubin 1.3 mg/dL (0.2-1.3); Total Protein 6.7 g/dL (6.3-8.2)
[2023-10-03] MEDS: HEPARIN SODIUM,PORCINE 5,000 UNIT/ML 1 ML VIAL SQ SCH (15:47)
[2023-10-03] MEDS: METOPROLOL SUCCINATE (ER) 50 MG TAB.ER.24H PO SCH (20:40)
[2023-10-03] MEDS: QUEtiapine 100 MG TAB PO SCH (20:54)
[2023-10-04 08:37] LABS: Basophils # (A) 0.06 X 10*3/uL (0.00-0.10); Basophils % (A) 1.5 %; Eosinophils # (A) 0.19 X 10*3/uL (0.04-0.35); Eosinophils % (A) 4.6 %; HCT 37.6 % (37.2-46.3); HGB 12.3 g/dL (12.0-15.0); Lymphocytes # (A) 1.72 X 10*3/uL (0.90-5.00); Lymphocytes % (A) 41.8 %; MCH 30.4 pg (27.0-32.0); MCHC 32.7 g/dL (32.0-37.0); MCV 92.8 FL (80.0-97.0); Mean Platelet Volume 9.6 FL (9.5-12.2); Monocytes # (A) 0.42 X 10*3/uL (0.20-1.00); Monocytes % (A) 10.2 %; NRBC Per 100 WBC 0 X 10*3/uL (0.00-0.01); Neutrophils # (A) 1.71 X 10*3/uL (1.80-7.70); Neutrophils % (A) 41.7 %; Platelet Count 184 X 10*3/uL (140-440); RBC 4.05 X 10*6/uL (4.10-5.20); WBC 4.11 X 10*3/uL (4.50-10.00)
[2023-10-04] MEDS: NALTREXONE HCL 50 MG TAB PO SCH (08:45)
[2023-10-04 09:00] LABS: ALT 21 U/L (8-44); AST 53 U/L (13-35); Alkaline Phosphatase 80 U/L (41-126); BUN/Creat Ratio 13.57 Ratio (12.00-20.00); Blood Urea Nitrogen 9.5 mg/dL (9.0-27.0); Calcium 8.8 mg/dL (8.7-10.3); Carbon Dioxide 22.4 mmol/L (21.6-31.8); Chloride 100 mmol/L (96-109); Glucose 85 mg/dL (70-110); Potassium 4.1 mmol/L (3.5-5.5); Sodium 139 mmol/L (135-145); Total Bilirubin 0.6 mg/dL (0.3-1.2)
[2023-10-04] MEDS: LORazepam 1 MG TAB PO PRN ×2 (12:18→17:47)
[2023-10-04 14:41] VITALS: BMI 21.4
[2023-10-04] MEDS: IBUPROFEN 600 MG TAB PO PRN (17:47)
--- NOTE | 2023-10-04 19:09 | P.HPIM ---
History of Present Illness H&P Date: 10/04/23 Chief Complaint: Alcohol withdrawal. HISTORY OF PRESENT ILLNESS: This is a 48-year-old female with a previous medical history significant for anxiety, major depressive disorder, chronic alcohol use and dependence, has been on naltrexone 50 mg once every day, attention deficit disorder, chronic insomnia due to underlying medical condition and possible due to behavior disturbances, apparently patient was hospitalized at [facility] about a month ago after she was having issues with chronic alcohol use and dependence, and she was admitted for the intensive care unit after she was found to have multiple bruising all over her body, there was some concern about possible suicidal thoughts and ideation at that time she was detoxified and she was sent to the mental health unit and she was seen by psychiatry and the patient has been following with [facility] on regular basis, unfortunately the patient went back and start drinking again about a pint of vodka the last time she has drink was about 2 days ago, patient apparently was having some hallucination sta ting that this is because of the medication that she was placed on at [facility], and the patient was not able to take it, patient thought that she was walking on people, and she tripped and fell and landed on her face, she had significant ecchymosis around her right eye, patient apparently was seen in the emergency department, and was supposed to be referred to the mental health unit, but because of her CIWA score was high it was recommended for the patient to be admitted under general internal medicine, to be treated and then she will be seen in consultation by psychiatry and the patient will be transferred over to the mental health unit at that time. Patient was started on CIWA protocol, she was started on IV fluid resuscitation, she was placed back on her medications. REVIEW OF SYSTEMS: Constitutional: No documented fever, no chills, no night sweats. No weight change. positive for weakness, positive for lethargy. No daytime sleepiness. EENT: No headache. No blurred vision or double vision, no loss of vision. No loss of Hearing, no ringing in the ears, no dizziness. No nasal drainage or congestion. No epistaxis. No sore throat. Lungs: No shortness of breath, no cough, no sputum production. No wheezing. Reports dyspnea with activity. Cardiovascular: No chest pain, no lower extremity edema. No palpitations. No paroxysmal nocturnal dyspnea. No orthopnea. No lightheadedness or dizziness. No syncopal episodes. Abdominal: Reports abdominal pain. No nausea, vomiting. No diarrhea. No constipation. No bloody or tarry stools reports loss of appetite. Genitourinary: No dysuria, increased frequency, urgency. No urinary retention. Musculoskeletal: No myalgias. No muscle weakness, no gait dysfunction, no frequent falls. positive for back pain. No neck pain. Integumentary: No wounds, no lesions. No rash or pruritus. No unusual bruising. No change in hair or nails. Neurologic: No aphasia. No facial droop. positive for change in mentation. No head injury. No headache. No paralysis. No paresthesia. Psychiatric: positive for depression, anxiety and suicidal ideation Endocrine: No abnormal blood sugars. No weight change. PAST MEDICAL HISTORY: Attention deficit disorder Restless leg syndrome Chronic alcohol use and dependence Major depressive disorder Anxiety disorder PAST SURGICAL HISTORY: Cholecystectomy 2017 EGD and colonoscopy 2017 Left shoulder repair due to chronic dislocation 2020 SOCIAL HISTORY: Patient used to smoke about a pack every day she started the age of 19 and she quit in 2017 she does drink half 1/5 of vodka on a daily basis, and she is trying to get off the alcohol, she does not use any drugs, however she buys Adderall from street according to her cousin. FAMILY HISTORY: Father at age of 64 from esophageal cancer and melanoma he also had history of diabetes and hypertension, mother is 75-year-old with history of ovarian cancer with mets to the liver, also hypertension, hypothyroidism, and depression, patient has 1 brother who is 50-year-old who is healthy. PHYSICAL EXAMINATION: General: 48-year-old female laying down in bed in no apparent distress, she appears to be more awake and alert. HEENT: Head with right periorbital ecchymosis, normocephalic, pupils were equal round reactive to light and recommendation, extraocular muscle movement were intact, sclera nonicteric, conjunctivae were pale, mucous membranes of the mouth are somewhat dry. Neck: Supple, no JVP, normal carotid upstroke bilaterally, no lymphadenopathy. Chest: Decreased breath sounds at the bases, few rhonchi, no expiratory wheezes, no chest wall tenderness, no intercostal retractions. Heart: First heart sound is normal, second heart sound is normal there os no gallop or murmur Abdomen: Soft, nontender, nondistended, positive bowel sounds. Extremities: There is no edema no calf tenderness DP +2 bilaterally. Multiple bruises in both lower extremities. Neurologic examination: Patient is awake alert and oriented x 3, cranial nerves III through XII appear to be gross intact, muscle power 5 out of 5 in upper and lower extremities bilaterally. ASSESSMENT AND PLAN: 1. Alcohol withdrawal patient was placed in the hospital she was started on IV fluid resuscitation in the form of normal saline 75 cc an hour, she was started on CIWA protocol, we will continue to monitor the patient very closely, continue patient on naltrexone 50 mg orally once every day, we will consult psychiatry for further evaluation recommendation. 2. Status post a fall with significant ecchymosis to the right orbital area. Patient will be monitored very closely, does not appear to have any mental status changes at this time, 3. Attention deficit disorder. Patient has been taken off any stimulant. 4. Chronic alcohol use and dependence. Patient was counseled about abstinence from alcohol, continue CIWA protocol for now, continue naltrexone 50 mg orally once every day. 5. Major depressive disorder patient has been placed on suicidal precautions, patient denies any suicidal thoughts or ideation, continue patient on Seroquel 300 mg at bedtime, continue to monitor the patient very closely. 6. Anxiety disorder. Continue lorazepam as needed. 7. Restless leg syndrome. continue. Patient on ropinirole 0.25 mg at bedtime. 8. Multiple bruises in both lower extremities secondary to a fall we will monitor. 9. Hypertension and hypertensive cardiovascular disease. Continue patient on metoprolol 50 mg orally once every day monitor the patient blood pressure very closely. 10. DVT prophylaxis . Continue patient on heparin 5000 units subcutaneously every 12 hours. 11. GI prophylaxis. Continue patient on Protonix 40 mg orally once every day. 12. Admit to inpatient. Estimated length of stay 2 midnights. 13. Patient is full code. Past Medical History Past Medical History: GERD/Reflux Additional Past Medical History / Comment(s): migraines,nodules on thyroid History of Any Multi-Drug Resistant Organisms: None Reported Past Surgical History: Cholecystectomy, Orthopedic Surgery Additional Past Surgical History / Comment(s): hand surg., bankart procedure le ft shoulder, left ulnar nerve surgery Past Anesthesia/Blood Transfusion Reactions: No Reported Reaction Past Psychological History: ADD/ADHD, Depression Smoking Status: Current every day smoker Past Alcohol Use History: Abuse, Daily, Heavy Additional Past Alcohol Use History / Comment(s): 1/2 pack/daily currently and states she drinks about a pint a day Past Drug Use History: Marijuana Additional Drug Use History / Comment(s): last alcoholic beverage was 10/01-- half of a pint, the other half was discarded by ER staff - Past Family History Father Family Medical History: Cancer Additional Family Medical History / Comment(s): Esophageal cancer Mother Family Medical History: Thyroid Disorder Additional Family Medical History / Comment(s): depression Medications and Allergies Home Medications Medication Instructions Recorded Confirmed Type Albuterol Sulfate [Albuterol 2 puff INHALATION RT-Q4H PRN 07/19/23 10/02/23 History Sulfate Hfa] Metoprolol Succinate (ER) [Toprol 50 mg PO HS 07/19/23 10/02/23 History XL] Rimegepant Sulfate [Nurtec Odt] 75 mg PO DAILY PRN 30 Days #30 tab 07/28/23 10/02/23 Rx Immune Support 1 tab PO DAILY 10/02/23 10/02/23 History Multivitamins, Thera [Multivitamin 1 tab PO DAILY 10/02/23 10/02/23 History (formulary)] Naltrexone HCl [Revia] 50 mg PO DAILY 10/02/23 10/02/23 History QUEtiapine FUMARATE [SEROquel] 300 mg PO HS 10/02/23 10/02/23 History busPIRone HCL 15 mg PO BID 10/02/23 10/02/23 History busPIRone HCL 15 mg PO DAILY PRN 10/02/23 10/02/23 History ondansetron HCL [Zofran] 8 mg PO DAILY PRN 10/02/23 10/02/23 History rOPINIRole HCL [Requip] 0.5 mg PO HS 10/02/23 10/02/23 History Allergies Allergy/AdvReac Type Severity Reaction Status Date / Time bupropion [From [facility]] AdvReac Hallucinati Verified 10/02/23 19:54 ons dextromethorphan AdvReac Hallucinati Verified 10/02/23 19:54 [facility] Physical Exam Vitals: Vital Signs Temp Pulse Pulse Pulse Resp BP BP 10/04/23 12:30 98 F 65 16 123/79 10/04/23 06:57 98 F 73 16 108/55 10/04/23 00:52 98.1 F 73 16 106/68 10/03/23 18:51 98.1 F 93 16 129/82 10/03/23 14:15 98.4 F 88 18 140/84 Pulse Ox 10/04/23 12:30 97 10/04/23 06:57 99 10/04/23 00:52 97 10/03/23 18:51 96 10/03/23 14:15 96 Intake and Output 10/03/23 10/04/23 10/04/23 22:59 06:59 14:59 Intake Total 118 Output Total 1 Balance 117 Intake: Oral 118 Output: Urine 1 Other: Voiding Method Toilet Toilet # Voids 1 1 # Bowel Movements 0 Weight 58.513 kg Results CBC & Chem 7: 10/04/23 05:45 10/04/23 05:45 Labs: Abnormal Lab Results - Last 24 Hours (Table) 10/03/23 10/04/23 10/04/23 Range/Units 13:21 05:45 05:45 WBC 4.11 L (4.50-10.00) X 10*3/uL RBC 4.05 L (4.10-5.20) X 10*6/uL Neutrophils # 1.71 L (1.80-7.70) X 10*3/uL Sodium 136 L (137-145) mmol/L Anion Gap 16.60 H (4.00-12.00) mmol/L AST 40 H 53 H (14-36) U/L Total Protein 6.0 L (6.2-8.2) g/dL Thrombosis Risk Factor Assmnt - Choose All That Apply Any of the Below Risk Factors Present?: Yes Each Factor Represents 1 point: Age 41-60 years Other Risk Factors: No Thrombosis Risk Factor Assessment Total Risk Factor Score: 1 Thrombosis Risk Factor Assessment Level: Low Risk
[2023-10-05 07:55] VITALS: RESP 16
--- NOTE | 2023-10-05 19:32 | P.PN ---
Subjective Progress Note Date: 10/05/23 HISTORY OF PRESENT ILLNESS: This is a 48-year-old female with a previous medical history signif icant for anxiety, major depressive disorder, chronic alcohol use and dependence, has been on naltrexone 50 mg once every day, attention deficit disorder, chronic insomnia due to underlying medical condition and possible due to behavior disturbances, apparently patient was hospitalized at [facility] about a month ago after she was having issues with chronic alcohol use and dependence, and she was admitted for the intensive care unit after she was found to have multiple bruising all over her body, there was some concern about possible suicidal thoughts and ideation at that time she was detoxified and she was sent to the mental health unit and she was seen by psychiatry and the patient has been following with [facility] on regular basis, unfortunately the patient went back and start drinking again about a pint of vodka the last time she has drink was about 2 days ago, patient apparently was having some hallucination stating that this is because of the medication that she was placed on at [facility], and the patient was not able to take it, patient thought that she was walking on people, and she tripped and fell and landed on her face, she had significant ecchymosis around her right eye, patient apparently was seen in the emergency department, and was supposed to be referred to the mental health unit, but because of her CIWA score was high it was recommended for the patient to be admitted under general internal medicine, to be treated and then she will be seen in consultation by psychiatry and the patient will be transferred over to the mental health unit at that time. Patient was started on CIWA protocol, she was started on IV fluid resuscitation, she was placed back on her medications. 10/04: Patient is doing a lot better today, she denies any chest pain, or any shortness of breath, she has no headache, she is requiring less and less Ativan at this point in time, she has no abdominal pain, nausea vomiting or diarrhea she is more awake and alert, she continues to follow commands appropriately, patient does not appear to have any acute distress at this time, she continues to have one-on-one suicidal precautions, patient will be accepted to go to the mental health unit later on this afternoon, I will discharge the patient and transfer her to the mental health unit. REVIEW OF SYSTEMS: Constitutional: No documented fever, no chills, no night sweats. No weight change. positive for weakness, positive for lethargy. No daytime sleepiness. EENT: No headache. No blurred vision or double vision, no loss of vision. No loss of Hearing, no ringing in the ears, no dizziness. No nasal drainage or congestion. No epistaxis. No sore throat. Lungs: No shortness of breath, no cough, no sputum production. No wheezing. Reports dyspnea with activity. Cardiovascular: No chest pain, no lower extremity edema. No palpitations. No paroxysmal nocturnal dyspnea. No orthopnea. No lightheadedness or dizziness. No syncopal episodes. Abdominal: Reports abdominal pain. No nausea, vomiting. No diarrhea. No constipation. No bloody or tarry stools reports loss of appetite. Genitourinary: No dysuria, increased frequency, urgency. No urinary retention. Musculoskeletal: No myalgias. No muscle weakness, no gait dysfunction, no frequent falls. positive for back pain. No neck pain. Integumentary: No wounds, no lesions. No rash or pruritus. No unusual bruising. No change in hair or nails. Neurologic: No aphasia. No facial droop. positive for change in mentation. No head injury. No headache. No paralysis. No paresthesia. Psychiatric: positive for depression, anxiety and suicidal ideation Endocrine: No abnormal blood sugars. No weight change. PHYSICAL EXAMINATION: General: 48-year-old female laying down in bed in no apparent distress, she appears to be more awake and alert. HEENT: Head with right periorbital ecchymosis, normocephalic, pupils were equal round reactive to light and recommendation, extraocular muscle movement were intact, sclera nonicteric, conjunctivae were pale, mucous membranes of the mouth are somewhat dry. Neck: Supple, no JVP, normal carotid upstroke bilaterally, no lymphadenopathy. Chest: Decreased breath sounds at the bases, few rhonchi, no expiratory wheezes, no chest wall tenderness, no intercostal retractions. Heart: First heart sound is normal, second heart sound is normal there os no gallop or murmur Abdomen: Soft, nontender, nondistended, positive bowel sounds. Extremities: There is no edema no calf tenderness DP +2 bilaterally. Multiple bruises in both lower extremities. Neurologic examination: Patient is awake alert and oriented x 3, cranial nerves III through XII appear to be gross intact, muscle power 5 out of 5 in upper and lower extremities bilaterally. ASSESSMENT AND PLAN: 1. Alcohol withdrawal. Continue patient on naltrexone 50 mg orally once every day, continue to use Ativan as needed orally. 2. Status post a fall with significant ecchymosis to the right orbital area. Patient will be monitored very closely, does not appear to have any mental status changes at this time, 3. Attention deficit disorder. Patient has been taken off any stimulant. 4. Chronic alcohol use and dependence. Patient was counseled about abstinence from alcohol, continue [facility] protocol for now, continue naltrexone 50 mg orally once every day. 5. Major depressive disorder patient has been placed on suicidal precautions, patient denies any suicidal thoughts or ideation, continue patient on Seroquel 300 mg at bedtime, continue to monitor the patient very closely. 6. Anxiety disorder. Continue lorazepam as needed. 7. Restless leg syndrome. continue. Patient on ropinirole 0.25 mg at bedtime. 8. Multiple bruises in both lower extremities secondary to a fall we will monitor. 9. Hypertension and hypertensive cardiovascular disease. Continue patient on metoprolol 50 mg orally once every day monitor the patient blood pressure very closely. 10. DVT prophylaxis . Continue patient on heparin 5000 units subcutaneously every 12 hours. 11. GI prophylaxis. Continue patient on Protonix 40 mg orally once every day. 12. Patient is medically stable to be transferred to the mental health unit. Objective - Vital Signs Vital signs: Vital Signs Temp 97.7 F 10/05/23 01:00 Pulse 69 10/05/23 01:00 Resp 14 10/05/23 01:00 BP 112/73 10/05/23 01:00 Pulse Ox 97 10/05/23 01:00 FiO2 Intake & Output 10/04/23 10/04/23 10/05/23 06:59 18:59 06:59 Intake Total 118 Balance 118 Weight 58.513 kg Intake: Oral 118 Other: Voiding Method Toilet Toilet Toilet # Voids 1 1 - Labs CBC & Chem 7: 10/04/23 05:45 10/04/23 05:45 Labs: Abnormal Lab Results - Last 24 Hours (Table) 10/04/23 10/04/23 Range/Units 05:45 05:45 WBC 4.11 L (4.50-10.00) X 10*3/uL RBC 4.05 L (4.10-5.20) X 10*6/uL Neutrophils # 1.71 L (1.80-7.70) X 10*3/uL Anion Gap 16.60 H (4.00-12.00) mmol/L AST 53 H (13-35) U/L Total Protein 6.0 L (6.2-8.2) g/dL
--- NOTE | 2023-10-05 19:33 | P.DS ---
Providers Date of admission: 10/03/23 12:45 Expected date of discharge: 10/05/23 Attending physician: Pricila Nance Consults: 10/03/23 12:45 Consult Physician Routine Consulting Provider: Pankaj Newell Consult Reason/Comments: SI, hallucinations Do you want consulting provider notified?: Yes Primary care physician: Pricila Nance Hospital Course: HISTORY OF PRESENT ILLNESS: This is a 48-year-old female with a previous medical history significant for anxiety, major depressive disorder, chronic alcohol use and dependence, has been on naltrexone 50 mg once every day, attention deficit disorder, chronic insomnia due to underlying medical condition and possible due to behavior disturbances, apparently patient was hospitalized at [facility] about a month ago after she was having issues with chronic alcohol use and dependence, and she was admitted for the intensive care unit after she was found to have multiple bruising all over her body, there was some concern about possible suicidal thoughts and ideation at that time she was detoxified and she was sent to the mental health unit and she was seen by psychiatry and the patient has been following with [facility] on regular basis, unfortunately the patient went back and start drinking again about a pint of vodka the last time she has drink was about 2 days ago, patient apparently was having some hallucination s tating that this is because of the medication that she was placed on at [facility], and the patient was not able to take it, patient thought that she was walking on people, and she tripped and fell and landed on her face, she had significant ecchymosis around her right eye, patient apparently was seen in the emergency department, and was supposed to be referred to the mental health unit, but because of her CIWA score was high it was recommended for the patient to be admitted under general internal medicine, to be treated and then she will be seen in consultation by psychiatry and the patient will be transferred over to the mental health unit at that time. Patient was started on CIWA protocol, she was started on IV fluid resuscitation, she was placed back on her medications. 10/04: Patient is doing a lot better today, she denies any chest pain, or any shortness of breath, she has no headache, she is requiring less and less Ativan at this point in time, she has no abdominal pain, nausea vomiting or diarrhea she is more awake and alert, she continues to follow commands appropriately, patient does not appear to have any acute distress at this time, she continues to have one-on-one suicidal precautions, patient will be accepted to go to the mental health unit later on this afternoon, I will discharge the patient and transfer her to the mental health unit. Discharge diagnoses: 1. Alcohol withdrawal. 2. Status post a fall with significant ecchymosis to the right orbital area. 3. Attention deficit disorder. 4. Chronic alcohol use and dependence. 5. Major depressive disorder 6. Anxiety disorder. 7. Restless leg syndrome. 8. Multiple bruises in both lower extremities secondary to a fall we will monitor. 9. Hypertension and hypertensive cardiovascular disease. 10. Patient is medically stable to be transferred to the mental health unit. Patient Condition at Discharge: Stable Plan - Discharge Summary Discharge Rx Participant: Yes New Discharge Prescriptions: New LORazepam [Ativan] 1 mg PO Q4H PRN tab PRN Reason: Anxiety Ibuprofen [Motrin] 600 mg PO TID PRN tab PRN Reason: Pain Continue Metoprolol Succinate (ER) [Toprol XL] 50 mg PO HS Naltrexone HCl [Revia] 50 mg PO DAILY busPIRone HCL 15 mg PO DAILY PRN PRN Reason: Anxiety Albuterol Sulfate [Albuterol Sulfate Hfa] 2 puff INHALATION RT-Q4H PRN PRN Reason: Shortness Of Breath Rimegepant Sulfate [Nurtec Odt] 75 mg PO DAILY PRN 30 Days #30 tab PRN Reason: Migraine Headache rOPINIRole HCL [Requip] 0.5 mg PO HS ondansetron HCL [Zofran] 8 mg PO DAILY PRN PRN Reason: Nausea And Vomiting Multivitamins, Thera [Multivitamin (formulary)] 1 tab PO DAILY QUEtiapine FUMARATE [SEROquel] 300 mg PO HS Immune Support 1 tab PO DAILY busPIRone HCL 15 mg PO BID Discharge Medication List Albuterol Sulfate [Albuterol Sulfate Hfa] 2 puff INHALATION RT-Q4H PRN 07/19/23 [History] Metoprolol Succinate (ER) [Toprol XL] 50 mg PO HS 07/19/23 [History] Rimegepant Sulfate [Nurtec Odt] 75 mg PO DAILY PRN 30 Days #30 tab 07/28/23 [Rx] Immune Support 1 tab PO DAILY 10/02/23 [History] Multivitamins, Thera [Multivitamin (formulary)] 1 tab PO DAILY 10/02/23 [History] Naltrexone HCl [Revia] 50 mg PO DAILY 10/02/23 [History] QUEtiapine FUMARATE [SEROquel] 300 mg PO HS 10/02/23 [History] busPIRone HCL 15 mg PO BID 10/02/23 [History] busPIRone HCL 15 mg PO DAILY PRN 10/02/23 [History] ondansetron HCL [Zofran] 8 mg PO DAILY PRN 10/02/23 [History] rOPINIRole HCL [Requip] 0.5 mg PO HS 10/02/23 [History] Ibuprofen [Motrin] 600 mg PO TID PRN tab 10/05/23 [Rx] LORazepam [Ativan] 1 mg PO Q4H PRN tab 10/05/23 [Rx] Follow up Appointment(s)/Referral(s): Pricila Nance MD [Primary Care Provider] - 1-2 days Patient Instructions/Handouts: Abuse of Alcohol (DC), Alcohol Withdrawal (DC), Suicide Prevention (DC) Discharge/Stand Alone Forms: AA Meetings Dist & 24 - [facility], AA Meetings Long, Community Resources, Outpatient Counseling, In Substance Abuse Facilities Discharge Disposition: TRANSFER TO PSYCH HOSP/UNIT
--- NOTE | 2023-10-05 20:56 | P.CN ---
Psychiatric Consult - . Consult date: 10/05/23 Consult:: 10/05/23 20:55 Identifying Data: Ms. Peter is 48 years old, single, WF, who lives in [place], [place] in a one-bedroom house by herself. Chief Complaint: I was having hallucinations due to the medications. History of Psychiatric Illness: The patient presented to the ER with hallucinations and repeated falls. The patient recently relapsed in to drinking and came to ER with blood alcohol of over 200. The patient thinks that her hallucinations were due to medications prescribed to her by the [facility]. The patient is a heavy drinker. She drinks to a pint of vodka a day. Beside hallucinating the patient fell and sustained a significant ecchymosis around her right eye. After initial work up she was sent to medical floor foe detox. A psychiatric consult was generated due to the history of major depression, anxiety, and s uicidal thoughts. During this evaluation, the patient denied suicidal ideations but indicated that her medications need to be adjusted. She feel depressed and anxious. The patient has no income at this time. As per patient she has some support through her uncle, aunt, and jewish. She noted to the nurse that no one helps and she feels lonely and helpless. She lives by herself in an apartment. The is currently taking Seroquel and Buspar. Leading questions: The patient admitted to Depression and Anxiety. Denied SI or HI. Denied symptoms consistent with psychosis. Past Psychiatric History: the patient noted that she has suffered from Depression since age 16. She has had out-pt treatment since then. She has gone to [facility] of and on. She has history of 6-7 psychiatric admission. Her last admiss ion was last year for Depression. Most of her admissions were for Depression. The patient was once admitted for suicidality 10 years ago after cutting her arm under the influence of heavy drinking in an intoxicated state. Her average hospital stay has been 7 days. Past Medication History: Depakote, Prozac, Zoloft, Lexapro, Ativan, Xanax, Tritillix. Drugs and alcohol history: The patient has history of Alcohol and Marijuana abuse. The patient started drinking around age 17. She started drinking heavy around age 28. She has drunk heavy off and on since then. She has periods of sobriety. Her longest sobriety was for 2 years 3 years ago. She has had 6-7 Detox and rehab admissions. Her last rehab was in September,. The patient has H/O blackouts, Mild withdrawals, and possible DTs during this admission. She smokes Marijuana everyday once or twice a day. She smokes half a joint at a time. Smoking: She smokes a pack/ week. She quit smoking 2 weeks ago. Past Medical history: Hypertension, Migraine, GERD Objective: MSE: Alert and attentive. Orientation times three Dressed and Groomed: Appropriately in hospital clothes. Pleasant and cooperative. Psychomotor Activity: Normal. Speech: Normal in tone, quality, and quantity. Mood: Depressed and Anxious. Affect: Consistent with mood. SI or HI: None. Perceptual disturbance: None. Thought Content: No paranoia or other delusional thinking noted. Thought Process: Normal. Cognition: Intact Judgment and Insight: Poor Diagnosis: Major Depressive Disorder, Severe, recurrent Alcohol Dependence Marijuana Abuse Plan and Recommendations: Continue patients meets criteria for psychiatric in-pt admission. Please transfer the patient to MHU after medical stabilization. Reinstate her on her out-pt medications. Please reconsult, if MS changes.
[2023-10-06 02:45] VITALS: BP 129/85; PULSE 78; TEMP 98
== END 2023-10-05 17:10 | disposition home or self-care (01) | DRG 775 ==
LOC: EC 14:31 → UNDOADMIN 10-03 12:45 → 5NMEDONC 10-03 12:45 → 3MHU 10-06 03:00 → UNDOADMIN 10-06 03:00 → UNDODISIN 10-06 04:40
PROVIDERS: ADMIT Internal Medicine; ATTEND Internal Medicine
DX: F10.229 Alcohol dependence with intoxication, unspecified (principal); F10.239 Alcohol dependence with withdrawal, unspecified; F33.2 Major depressive disorder, recurrent severe without psychotic features; F03.94 Unspecified dementia, unspecified severity, with anxiety; R45.851 Suicidal ideations; E87.29 Other acidosis; I11.9 Hypertensive heart disease without heart failure; G25.81 Restless legs syndrome; S00.11XA Contusion of right eyelid and periocular area, initial encounter; F98.8 Other specified behavioral and emotional disorders with onset usually occurring in childhood and adolescence; T14.8XXA Other injury of unspecified body region, initial encounter; S00.83XA Contusion of other part of head, initial encounter; R29.6 Repeated falls; G47.01 Insomnia due to medical condition; W01.0XXA Fall on same level from slipping, tripping and stumbling without subsequent striking against object, initial encounter; Y90.7 Blood alcohol level of 200-239 mg/100 ml; Z91.81 History of falling; Z79.899 Other long term (current) drug therapy; Z88.8 Allergy status to other drugs, medicaments and biological substances; Z59.86 Financial insecurity; Z91.51 Personal history of suicidal behavior; Z87.891 Personal history of nicotine dependence
CPT/HCPCS: 36415; 70450; 71045; 72125; 72170; 80053; 80320; 82075; 85025; 87636; 93005; 96374; 96376; 99285

== ENCOUNTER 2023-10-06 03:32 | Inpatient (IN) | payer MEDICAID, OTHER ==
[2023-10-06] MEDS ORDERED: HALOPERIDOL LACTATE 5 MG/ML 1 ML VIAL IM PRN (04:04)
[2023-10-06] MEDS ORDERED: haloperidoL 5 MG TAB PO PRN (04:04)
[2023-10-06] MEDS ORDERED: LORazepam 2 MG/ML INJ IM PRN (04:08)
[2023-10-06] MEDS ORDERED: NON FORMULARY DRUG (Rimegepant Sulfate [Nurtec Odt] 75 MG Tablet) PO PRN (04:10)
[2023-10-06] MEDS: LORazepam 1 MG TAB PO PRN ×2 (04:52→09:27)
[2023-10-06] MEDS: ONDANSETRON 4 MG TAB PO PRN (04:52)
[2023-10-06] MEDS: IBUPROFEN 600 MG TAB PO PRN (04:52)
[2023-10-06] MEDS ORDERED: MAG HYDROX/AL HYDROX/SIMETH 355 ML BOTTLE PO PRN (08:00)
[2023-10-06] MEDS ORDERED: ALBUTEROL INHALER 60 PUFF/8 GM INHALER (MHU) INHALATION PRN (08:00)
[2023-10-06] MEDS ORDERED: busPIRone HCl 5 MG TAB PO PRN (09:00)
[2023-10-06] MEDS ORDERED: MULTIVITAMINS, THERA 1 EACH TAB PO SCH (09:00)
[2023-10-06] MEDS ORDERED: IMMUNE SUPPORT PO SCH (09:00)
[2023-10-06] MEDS: NALTREXONE HCL 50 MG TAB PO SCH (09:27)
[2023-10-06] MEDS: MULTIVITAMINS, THERA 1 EACH TAB PO SCH (09:27)
[2023-10-06] MEDS: busPIRone HCl 5 MG TAB PO SCH (09:27)
[2023-10-06] MEDS: NICOTINE 14MG/24HR PATCH TRANSDERM SCH (09:27)
--- NOTE | 2023-10-06 10:44 | P.HP ---
Psychiatric H&P - . H&P Date: 10/06/23 History & Physical: Allergies Allergy/AdvReac Type Severity Reaction Status Date / Time bupropion [From [facility]] AdvReac Hallucinati Verified 10/06/23 07:28 ons dextromethorphan AdvReac Hallucinati Verified 10/06/23 07:28 [From [facility]] ons Vital Signs Temp 98.6 F 10/06/23 09:26 Pulse 106 H 10/06/23 09:26 Resp 18 10/06/23 04:40 BP 118/75 10/06/23 09:26 Pulse Ox 99 10/06/23 09:26 FiO2 Intake & Output 10/05/23 10/06/23 10/06/23 18:59 06:59 18:59 Weight 58.51 kg 10/06/23 10:43 Initial Psychiatric Evaluation Identifying Data: Ms. Peter is 48 years old, single, WF, who lives in [place], [place] in a one-bedroom house by herself. Chief Complaint: I was having hallucinations due to the medications. History of Psychiatric Illness: The patient presented to the ER with hallucinations and repeated falls. The patient recently relapsed in to drinking and came to ER with blood alcohol of over 200. The patient thinks that her hallucinations were due to medications prescribed to her by the [facility]. The patient is a heavy drinker. She drinks to a pint of vodka a day. Beside hallucinating the patient fell and sustained a significant ecchymosis around her right eye. After initial work up she was sent to medical floor foe detox. A psychiatric consult was generated due to the history of major depression, anxiety, and suicidal thoughts. During this evaluation, the patient denied suicidal ideations but indicated that her medications need to be adjusted. She feels depressed and anxious. The patient has no income at this time. As per patient she has some support through her uncle, aunt, and catholic. She noted to the nurse that no one helps and she feels lonely and helpless. She lives by herself in an apartment. The is currently taking Seroquel and Buspar. Leading questions: The patient admitted to Depression and Anxiety. Denied SI or HI. Denied symptoms consistent with psychosis. Past Psychiatric History: the patient noted that she has suffered from Depr ession since age 16. She has had out-pt treatment since then. She has gone to [facility] of and on. She has history of 6-7 psychiatric admission. Her last admission was last year for Depression. Most of her admissions were for Depression. The patient was once admitted for suicidality 10 years ago after cutting her arm under the influence of heavy drinking in an intoxicated state. Her average hospital stay has been 7 days. Past Medication History: Depakote, Prozac, Zoloft, Lexapro, Ativan, Xanax, Tritillix. Drugs and alcohol history: The patient has history of Alcohol and Marijuana abuse. The patient started drinking around age 17. She started drinking heavy around age 28. She has drunk heavy off and on since then. She has periods of sobriety. Her longest sobriety was for 2 years 3 years ago. She has had 6-7 Detox and rehab admissions. Her last rehab was in September,. The patient has H/O blackouts, Mild withdrawals, and possible DTs during this admission. She smokes Marijuana everyday once or twice a day. She smokes half a joint at a time. Smoking: She smokes a pack/ week. She quit smoking 2 weeks ago. Past Medical history: Hypertension, Migraine, GERD Family History of Psychiatric Disorder: The patients mother, maternal aunt, grandmother suffer from Depression. Her maternal cousin is psychotic, sees camera and get paranoid. She denied any H/O suicide or Homicide in the family. Social History and Family History: Born and raised: The patient was born and raise in [place], [place]. She grew up with her older brother. He finished . 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 She never and has no children. OTC: Ibuprofen Allergies: None Aims: Normal Objective: MSE: Alert and attentive. Orientation times three Dressed and Groomed: Appropriately in hospital clothes. Pleasant and cooperative. Psychomotor Activity: Normal. Speech: Normal in tone, quality, and quantity. Mood: Depressed and Anxious. Affect: Consistent with mood. SI or HI: None. Perceptual disturbance: None. Thought Content: No paranoia or other delusional thinking noted. Thought Process: Normal. Cognition: Intact Judgment and Insight: Good AIMS: Normal Labs: Non available, ordered. Diagnosis: Major Depressive Disorder, Severe, recurrent Dysthymic Disorder Alcohol Dependence Marijuana Abuse Plan and Recommendations: Continue patients out-patient medications. Add Celexa 10 mg daily, reduce Seroquel to 200 mg at bedtime Monitor MS and side effects of medications and adjust medications accordingly. Provide supportive psychotherapy The patient provided Substance abuse counseling. Smoke cessation therapy. The patient to attend [facility]. CBC with Diff, CMP, TSH, Lipid Profile, HbA1c, EKG ordered. Discharge to home after stabilization without-pt follow-up at [facility] Medication Consent with explanation of risk/benefits and side effects: Explained and obtained.
--- NOTE | 2023-10-06 15:18 | P.MDCNMH ---
History of Present Illness H&P Date: 10/06/23 Chief Complaint: Chronic alcohol use and dependence/major depressive disorder. HISTORY OF PRESENT ILLNESS: This is a 48-year-old female with a previous medical history significant for anxiety, major depressive disorder, chronic alcohol use and dependence, has been on naltrexone 50 mg once every day, attention deficit disorder, chronic insomnia due to underlying medical condition and possible due to behavior disturbances, apparently patient was hospitalized at [facility] about a month ago after she was having issues with chronic alcohol use and dependence, and she was admitted for the intensive care unit after she was found to have multiple bruising all over her body, there was some concern about possible suicidal thoughts and ideation at that time she was detoxified and she was sent to the mental health unit and she was seen by psychiatry and the patient has been following with [facility] on regular basis, unfortunately the patient went back and start drinking again about a pint of vodka the last time she has drink was about 2 days ago, patient apparently was having some hallucination stating that this is because of the medication that she was placed on at [facility], in any regard the patient was detoxified and she was sent yesterday to the mental [facility] unit after she was admitted to the medical floor, and we were asked to see the patient for medical management. REVIEW OF SYSTEMS: Constitutional: No documented fever, no chills, no night sweats. No weight change. positive for weakness, positive for lethargy. No daytime sleepiness. EENT: No headache. No blurred vision or double vision, no loss of vision. No loss of Hearing, no ringing in the ears, no dizziness. No nasal drainage or congestion. No epistaxis. No sore throat. Lungs: No shortness of breath, no cough, no sputum production. No wheezing. Reports dyspnea with activity. Cardiovascular: No chest pain, no lower extremity edema. No palpitations. No paroxysmal nocturnal dyspnea. No orthopnea. No lightheadedness or dizziness. No syncopal episodes. Abdominal: Reports abdominal pain. No nausea, vomiting. No diarrhea. No constipation. No bloody or tarry stools reports loss of appetite. Genitourinary: No dysuria, increased frequency, urgency. No urinary retention. Musculoskeletal: No myalgias. No muscle weakness, no gait dysfunction, no frequent falls. positive for back pain. No neck pain. Integumentary: No wounds, no lesions. No rash or pruritus. No unusual bruising. No change in hair or nails. Neurologic: No aphasia. No facial droop. positive for change in mentation. No head injury. positive for headache. No paralysis. No paresthesia. Psychiatric: positive for depression, anxiety and suicidal ideation Endocrine: No abnormal blood sugars. No weight change. PAST MEDICAL HISTORY: Attention deficit disorder Restless leg syndrome Chronic alcohol use and dependence Major depressive disorder Anxiety disorder PAST SURGICAL HISTORY: Cholecystectomy 2017 EGD and colonoscopy 2017 Left shoulder repair due to chronic dislocation 2019 SOCIAL HISTORY: Patient used to smoke about a pack every day she started the age of 19 and she quit in 2017 she does drink half 1/5 of vodka on a daily basis, and she is trying to get off the alcohol, she does not use any drugs, however she buys Adderall from street according to her cousin. FAMILY HISTORY: Father at age of 64 from esophageal cancer and melanoma he also had history of diabetes and hypertension, mother is 75-year-old with history of ovarian cancer with mets to the liver, also hypertension, hypothyroidism, and depression, patient has 1 brother who is 50-year-old who is healthy. PHYSICAL EXAMINATION: General: 48-year-old female laying down in bed in no apparent distress, she appears to be more awake and alert. HEENT: Head with right periorbital ecchymosis, normocephalic, pupils were equal round reactive to light and recommendation, extraocular muscle movement were intact, sclera nonicteric, conjunctivae were pale, mucous membranes of the mouth are somewhat dry. Neck: Supple, no JVP, normal carotid upstroke bilaterally, no lymphadenopathy. Chest: Decreased breath sounds at the bases, few rhonchi, no expiratory wheezes, no chest wall tenderness, no intercostal retractions. Heart: First heart sound is normal, second heart sound is normal there os no gallop or murmur Abdomen: Soft, nontender, nondistended, positive bowel sounds. Extremities: There is no edema no calf tenderness DP +2 bilaterally. Multiple bruises in both lower extremities. Neurologic examination: Patient is awake alert and oriented x 3, cranial nerves III through XII appear to be gross intact, muscle power 5 out of 5 in upper and lower extremities bilaterally. ASSESSMENT AND PLAN: 1. Chronic alcohol use and dependence continue patient on naltrexone 50 mg once every day, follow-up with mental health unit team. 2. Status post a fall with significant ecchymosis to the right orbital area. Patient will be monitored very closely, does not appear to have any mental status changes at this time, 3. Attention deficit disorder. Patient has been taken off any stimulant. 4. Chronic alcohol use and dependence. Patient was counseled about abstinence from alcohol, continue patient on naltrexone 50 mg orally once every day. 5. Major depressive disorder patient has been placed on suicidal precautions, patient denies any suicidal thoughts or ideation, continue patient on Seroquel 200 mg at bedtime along with Celexa 10 mg once every day was started by the psychiatry team. 6. Anxiety disorder. Continue patient on citalopram 10 mg orally once every day. Continue lorazepam as needed. 7. Restless leg syndrome. continue. Patient on ropinirole 0.25 mg at bedtime. 8. Multiple bruises in both lower extremities secondary to a fall we will monitor. 9. Hypertension and hypertensive cardiovascular disease. Continue patient on metoprolol 50 mg orally once every day monitor the patient blood pressure very closely. 10. Migraine headaches. Continue patient on Nurtec 75 mg orally once every day as needed. 11. Thank you for the consult we will follow the patient with you. Past Medical History Past Medical History: GERD/Reflux Additional Past Medical History / Comment(s): migraines,nodules on thyroid History of Any Multi-Drug Resistant Organisms: None Reported Past Surgical History: Cholecystectomy, Orthopedic Surgery Additional Past Surgical History / Comment(s): hand surg., bankart procedure left shoulder, left ulnar nerve surgery Past Anesthesia/Blood Transfusion Reactions: No Reported Reaction Smoking Status: Current every day smoker - Past Family History Father Family Medical History: Cancer Additional Family Medical History / Comment(s): Esophageal cancer Mother Family Medical History: Thyroid Disorder Additional Family Medical History / Comment(s): depression Medications and Allergies Home Medications Medication Instructions Recorded Confirmed Type Albuterol Sulfate [Albuterol 2 puff INHALATION RT-Q4H PRN 07/19/23 10/06/23 History Sulfate Hfa] Metoprolol Succinate (ER) [Toprol 50 mg PO HS 07/19/23 10/06/23 History XL] Rimegepant Sulfate [Nurtec Odt] 75 mg PO DAILY PRN 30 Days #30 tab 07/28/23 10/06/23 Rx Immune Support 1 tab PO DAILY 10/02/23 10/06/23 History Multivitamins, Thera [Multivitamin 1 tab PO DAILY 10/02/23 10/06/23 History (formulary)] Naltrexone HCl [Revia] 50 mg PO DAILY 10/02/23 10/06/23 History QUEtiapine FUMARATE [SEROquel] 300 mg PO HS 10/02/23 10/06/23 History busPIRone HCL 15 mg PO BID 10/02/23 10/06/23 History busPIRone HCL 15 mg PO DAILY PRN 10/02/23 10/06/23 History ondansetron HCL [Zofran] 8 mg PO DAILY PRN 10/02/23 10/06/23 History rOPINIRole HCL [Requip] 0.5 mg PO HS 10/02/23 10/06/23 History Ibuprofen [Motrin] 600 mg PO TID PRN tab 10/05/23 10/06/23 Rx LORazepam [Ativan] 1 mg PO Q4H PRN tab 10/05/23 10/06/23 Rx Allergies Allergy/AdvReac Type Severity Reaction Status Date / Time bupropion [[facility]] AdvReac Hallucinati Verified 10/06/23 07:28 ons dextromethorphan AdvReac Hallucinati Verified 10/06/23 07:28 [From [facility]] ons Physical Exam Vitals: Vital Signs Temp Pulse Resp BP Pulse Ox 10/06/23 09:26 98.6 F 106 H 118/75 99 10/06/23 04:40 97.0 F L 83 18 130/96 Intake and Output 10/05/23 10/06/23 10/06/23 22:59 06:59 14:59 Other: Weight 58.51 kg Cranial Nerve Examination - Cranial Nerves Cranial Nerve I- Olfactory: Intact Cranial Nerve II- Optic: Intact Cranial Nerve III- Oculomotor: Intact Cranial Nerve IV- Trochlear: Intact Cranial Nerve V- Trigeminal: Intact Cranial Nerve - Abducens: Intact Cranial Nerve VII- Facial: Intact Cranial Nerve VIII- Auditory: Intact Cranial Nerve IX- Glossopharyngeal: Intact Cranial Nerve X- Vagus: Intact Cranial Nerve XI- Accessory: Intact Cranial Nerve XII- Hypoglossal: Intact Results Labs: Abnormal Lab Results - Last 24 Hours (Table) 10/06/23 Range/Units 11:53 TSH 0.419 L (0.465-4.680) mIU/L
[2023-10-06] MEDS: ACETAMINOPHEN TAB 325 MG TAB PO PRN (18:30)
[2023-10-06] MEDS: QUEtiapine 200 MG TAB PO SCH (20:39)
[2023-10-06] MEDS ORDERED: QUEtiapine 100 MG TAB PO SCH (21:00)
[2023-10-06] MEDS: METOPROLOL SUCCINATE (ER) 50 MG TAB.ER.24H PO SCH (21:13)
[2023-10-06 21:53] LABS: Chol/HDL Ratio 2.33 Ratio
[2023-10-07] MEDS: CITALOPRAM HYDROBROMIDE 10 MG TAB PO SCH (08:13)
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
--- NOTE | 2023-10-08 12:01 | P.PN ---
Progress Note - Text Progress Note Date: 10/08/23 Follow-up Mediation Review Chief Complaint: I am feeling better Subjective: The patient noted that she is feeling better. She noted being in touch with her sponsor, who is trying to get her in a treatment program in [place]. She wants to go to a long-term rehab. She is also working with director social welfare to get all the information for recovery here. She reported attending [facility] activities. She has no side effects from her medications. Complaint since yesterday: The patient has not / been attending the groups. The participation is limited / good. The interaction with staff and peers is limited / good. The patient is not / compliant with treatment recommendations. Leading questions: The patient denied /admitted to Depression and Anxiety. Denied SI or HI. Denied symptoms consistent with psychosis Sleep and Appetite: Change in family/ living/job/financial/daily routine: No change. Change in medical condition: No change. Change in medications: Celexa increased to 20 mg daily. Side effects from Medications: None. Allergies: No change. Objective- MSE: Alert and attentive. Orientation times three. Dressed and Groomed: Appropriately. Pleasant and cooperative. Psychomotor Activity: Normal. Speech: Normal in tone, quality and quantity. Mood: Affect: SI or HI: None. Perceptual disturbance: None. Thought Content: No paranoia or other delusional thinking noted. Thought Process: Normal. Cognition: Intact Judgment and Insight: Good AIMS: Normal. Labs: No new labs. Diagnosis: Plan and Recommendations: Continue current Medications. Monitor MS and side effects of medications and adjust medications accordingly. Provide supportive psychotherapy. The patient provided psychoeducation and advised The patient provided Substance abuse counseling. Smoke cessation therapy. The patient to attend cano activities. CBC with Diff, CMP, TSH, Lipid Profile, HbA1c, EKG, Test ordered. Medication Consent with explanation of risk/benefits and side effects: Explained and obtained.
[2023-10-09 05:58] VITALS: RESP 17
[2023-10-09] MEDS: CITALOPRAM HYDROBROMIDE 20 MG TAB PO SCH (08:27)
[2023-10-09 09:11] LABS: Appearance,Urine Clear (Clear); Bacteria,Urine Rare /hpf; Bilirubin,Urine Negative (Negative); Blood,Urine Negative (Negative); Color,Urine Yellow; Glucose,Urine (UA) Negative (Negative); Ketones,Urine Negative (Negative); Leukocyte Esterase,Urine Small (Negative); Mucus,Urine Rare /hpf; Nitrite,Urine Negative (Negative); PH, Urine 6.5 (5.0-8.0); Protein,Urine Trace (Negative); RBC,Urine <1 /hpf (0-5); Specific Gravity,Urine 1.022 (1.001-1.035); Squamous Epithelial Cell,Urine 7 /hpf (0-4); Urobilinogen,Urine <2.0 mg/dL (<2.0); WBC,Urine 1 /hpf (0-5)
[2023-10-09 09:20] LABS: Amphetamine Screen,Urine Not Detected (NotDetected); Barbiturate Screen,Urine Not Detected (NotDetected); Benzodiazepines Screen,Urine Detected (NotDetected); Cocaine Screen,Urine Not Detected (NotDetected); Methadone Screen, Urine Not Detected (NotDetected); Opiate Screen,Urine Not Detected (NotDetected); Oxycodone Screen, Urine Detected (NotDetected); Phencyclidine Screen,Urine Not Detected (NotDetected); Tricyclic Antidepressant,Urine Detected (NotDetected); Urn Cannabinoid Scrn Detected (NotDetected)
[2023-10-10 08:32] VITALS: TEMP 96.2
--- NOTE | 2023-10-10 21:24 | P.PN ---
Progress Note - Text Progress Note Date: 10/09/23 Interval history: Patient was found relaxing in the lounge and was directable and agreeable to speak with junior underwriter. She has a black eye (right eye) which is healing. She reports her mood and sleep are "fine", appetite is "ok". Her Celexa was increased to 30 mg daily for this morning and she reports she is tolerating this dose, reports feeling her brain is "more alive" as the depression begins to wane, and she prefers to keep the Celexa at this dose. She denies SI/HI, intent or plan. At this time patient denies any suicidal or homicidal ideation, intent or plan. Denies any auditory or visual hallucinations. Patient denies any side effects from the medications and has been compliant with meds. She has received Ativan 1 mg po x 2 today for CIWA. Vitals signs are normal. Mental status exam: General Appearance: Patient appears to be stated age, has black (bruised) right eye that is healing, dressed in casual attire, average hygiene/grooming Behavior: No agitated behavior. Patient is calm and directable. Speech: Patient's speech is fluent and non-pressured. Mood/Affect: Mood is improving mildly, affect is congruent and constricted. Suicidality/Homicidality: Patient denies having any suicidal or homicidal ideation intent or plan. Perceptions: Patient denies any auditory or visual hallucinations. Though content/process: There is no evidence of any delusional thought content and thought process is linear and goal-directed. Memory and concentration: AOX3, grossly intact for the purposes of this session Judgment and insight: improving mildly Assessment/Plan: Continue with current diagnosis. Patient continues to meet criteria for inpatient psychiatric admission for symptom stabilization and safety. Patient will be maintained on current psychotropic medication regimen. Continue Celexa at 30 mg since she is tolerating this well. Monitor for medication compliance and for any psychotropic medication side effects. Will continue to monitor ongoing response to treatment. Encouraged participation in milieu.
--- NOTE | 2023-10-10 21:28 | P.PN ---
Progress Note - Text Progress Note Date: 10/10/23 Interval history: Patient was found relaxing in the lounge again today and was directable and agreeable to speak with database report writer. She has a black eye (right eye) which is healing. She reports her mood is really good. She denies SI/HI, intent or plan. At this time patient denies any suicidal or homicidal ideation, intent or plan. Denies any auditory or visual hallucinations. Patient denies any side effects from the medications and has been compliant with meds. She has received Ativan 1 mg po x 1 today per CIWA. No signs of alcohol withdrawal today. Vitals signs are normal so we discussed discontinuing Ativan per CIWA. Mental status exam: General Appearance: Patient appears to be stated age, has black (bruised) right eye that is healing, dressed in casual attire, average hygiene/grooming Behavior: No agitated behavior. Patient is calm and directable. Speech: Patient's speech is fluent and non-pressured. Mood/Affect: Mood is improving mildly, affect is congruent and constricted. Suicidality/Homicidality: Patient denies having any suicidal or homicidal ideation intent or plan. Perceptions: Patient denies any auditory or visual hallucinations. Though content/process: There is no evidence of any delusional thought content and thought process is linear and goal-directed. Memory and concentration: AOX3, grossly intact for the purposes of this session Judgment and insight: improving mildly Assessment/Plan: Continue with current diagnosis. Patient continues to meet criteria for inpatient psychiatric admission for symptom stabilization and safety. Patient will be maintained on current psychotropic medication regimen. Continue Celexa at 30 mg since she is tolerating this well. Discontinue Ativan per CIWA and PRN Ativan. Monitor for medication compliance and for any psychotropic medication side effects. Will continue to monitor ongoing response to treatment. Encouraged participation in milieu. She is hopeful for discharge tomorrow.
[2023-10-10] MEDS: CITALOPRAM HYDROBROMIDE 10 MG TAB PO STA (21:33)
[2023-10-11 06:43] VITALS: BP 118/74; PULSE 64
--- NOTE | 2023-10-11 17:27 | P.DS ---
Providers Date of admission: 10/06/23 03:33 Expected date of discharge: 10/11/23 Attending physician: Maximus Webb MD Consults: 10/06/23 04:04 Consult Physician Routine Consulting Provider: Dylon Nance Consult Reason/Comments: H&P for mental health admission Do you want consulting provider notified?: Yes, Notify in am Primary care physician: Pricila Mendozaher - Discharge Diagnosis(es) (1) Major depressive disorder, recurrent severe without psychotic features Status: Acute Priority: High (2) Polysubstance abuse Status: Acute Priority: Medium Hospital Course: Discharge Summary HPI: Identifying Data: Ms. Peter is 48 years old, single, [place], who lives in [place], [place] in a one-bedroom house by herself. Chief Complaint: I was having hallucinations due to the medications. History of Psychiatric Illness: The patient presented to the ER with hallucinations and repeated falls. The patient recently relapsed in to drinking and came to ER with blood alcohol of over 200. The patient thinks that her hallucinations were due to medications prescribed to her by the [facility]. The patient is a heavy drinker. She drinks to a pint of vodka a day. Beside hallucinating the patient fell and sustained a significant ecchymosis around her right eye. After initial work up she was sent to medical floor foe detox. A psychiatric consult was generated due to the history of major depression, anxiety, and suicidal thoughts. During this evaluation, the patient denied suicidal ideations but indicated that her medications need to be adjusted. She feels depressed and anxious. The patient has no income at this time. As per patient she has some support through her uncle, aunt, and sabianism. She noted to the nurse that no one helps and she feels lonely and helpless. She lives by herself in an apartment. The is currently taking Seroquel and Buspar. Leading questions: The patient admitted to Depression and Anxiety. Denied SI or HI. Denied symptoms consistent with psychosis. Past Psychiatric History: the patient noted that she has suffered from Depression since age 16. She has had out-pt treatment since then. She has gone to [facility] of and on. She has history of 6-7 psychiatric admission. Her last admission was last year for Depression. Most of her admissions were for Depression. The patient was once admitted for suicidality 10 years ago after cutting her arm under the influence of heavy drinking in an intoxicated state. Her average hospital stay has been 7 days. Past Medication History: Depakote, Prozac, Zoloft, Lexapro, Ativan, Xanax, Tritillix. Drugs and alcohol history: The patient has history of Alcohol and Marijuana abuse. The patient started drinking around age 17. She started drinking heavy around age 28. She has drunk heavy off and on since then. She has periods of sobriety. Her longest sobriety was for 2 years 3 years ago. She has had 6-7 Detox and rehab admissions. Her last rehab was in September,. The patient has H/O blackouts, Mild withdrawals, and possible DTs during this admission. She smokes Marijuana everyday once or twice a day. She smokes half a joint at a time. Smoking: She smokes a pack/ week. She quit smoking 2 weeks ago. Hospital Course: After admission, the patient was involved in pharmacotherapy, cano milieu, and individual psychodynamic psychotherapy. The patient was started on Celexa, Buspar and Seroquel. The dose was titrated to obtain the desire effects. The angel ambriz tolerated medications well without any side effects. The patient was also involved in cano activities. The patient attended the groups and participated well. The patient interacted with peers and staff well. The patient slowly started showing improvement. The hospital course was uneventful. The patient symptoms of depression, suicidal and homicidal ideations abated. The psychosis improved. The patient was stable to be discharged to out-patient care. The patient did not have any guns or weapons in possession at home. MSE: Alert and attentive. Orientation times three Dressed and Groomed: Appropriately in hospital clothes. Pleasant and cooperative. Psychomotor Activity: Normal. Speech: Normal in tone, quality, and quantity. Mood: Depressed and Anxious. Affect: Consistent with mood. SI or HI: None. Perceptual disturbance: None. Thought Content: No paranoia or other delusional thinking noted. Thought Process: Normal. Cognition: Intact Judgment and Insight: Good AIMS: Normal Diagnosis: Major Depressive Disorder, Severe, recurrent Dysthymic Disorder Alcohol Dependence Marijuana Abuse Plan: The patient to be discharged today. The patient has attained good improvement since admission. He is stable to be followed as an outpatient. The patient is not suicidal or Homicidal. He does not pose any harm to self or other s. The patient remains at a greater risk of self-harm or harm to others than general population on a chronic basis due to psychiatric illness and substance abuse. The patient will continue taking following medication post discharge. The importance of medication compliance and maintaining regular appointments at psychiatric out-pt and PCP clinic was explained and encouraged. The patient was also advised to seek alcohol counseling and attend AA/NA meetings. The understood and agreed with the recommendations. supervisor hand workers to arrange for and conduct family meeting to ensure safety upon discharge and answer any questions. The child protective services social worker to arrange for patients follow-up appointments at [facility] for psychiatric care along with follow-up with PCP. The patient provided psychoeducation. Advised to call 911 or go to nearest ED or call this hospital in case of acute worsening of symptomatology, severe side effects or having suicidal, homicidal thoughts and feeling unsafe at home. Patient Condition at Discharge: Stable Plan - Discharge Summary Discharge Rx Participant: Yes New Discharge Prescriptions: New Citalopram Hydrobromide [CeleXA] 20 mg PO DAILY 15 Days #15 tab Continue Metoprolol Succinate (ER) [Toprol XL] 50 mg PO HS rOPINIRole HCL [Requip] 0.5 mg PO HS 15 Days #15 tab Naltrexone HCl [Revia] 50 mg PO DAILY 15 Days #15 tab Albuterol Sulfate [Albuterol Sulfate Hfa] 2 puff INHALATION RT-Q4H PRN PRN Reason: Shortness Of Breath Rimegepant Sulfate [Nurtec Odt] 75 mg PO DAILY PRN 30 Days #30 tab PRN Reason: Migraine Headache Multivitamins, Thera [Multivitamin (formulary)] 1 tab PO DAILY Immune Support 1 tab PO DAILY busPIRone HCL 15 mg PO BID Ibuprofen [Motrin] 600 mg PO TID PRN tab PRN Reason: Pain Changed QUEtiapine FUMARATE [SEROquel] 200 mg PO HS 15 Days #15 tab Discontinued busPIRone HCL 15 mg PO DAILY PRN PRN Reason: Anxiety LORazepam [Ativan] 1 mg PO Q4H PRN tab PRN Reason: Anxiety ondansetron HCL [Zofran] 8 mg PO DAILY PRN PRN Reason: Nausea And Vomiting Discharge Medication List Albuterol Sulfate [Albuterol Sulfate Hfa] 2 puff INHALATION RT-Q4H PRN 07/19/23 [History] Metoprolol Succinate (ER) [Toprol XL] 50 mg PO HS 07/19/23 [History] Rimegepant Sulfate [Nurtec Odt] 75 mg PO DAILY PRN 30 Days #30 tab 07/28/23 [Rx] Immune Support 1 tab PO DAILY 10/02/23 [History] Multivitamins, Thera [Multivitamin (formulary)] 1 tab PO DAILY 10/02/23 [History] busPIRone HCL 15 mg PO BID 10/02/23 [History] Ibuprofen [Motrin] 600 mg PO TID PRN tab 10/05/23 [Rx] Citalopram Hydrobromide [CeleXA] 20 mg PO DAILY 15 Days #15 tab 10/11/23 [Rx] Naltrexone HCl [Revia] 50 mg PO DAILY 15 Days #15 tab 10/11/23 [Rx] QUEtiapine FUMARATE [SEROquel] 200 mg PO HS 15 Days #15 tab 10/11/23 [Rx] rOPINIRole HCL [Requip] 0.5 mg PO HS 15 Days #15 tab 10/11/23 [Rx] Follow up Appointment(s)/Referral(s): [facility] [Outside] - 10/14/23 2:45 pm (10-14-23 at 2:45 with Karmen Sanchez 10-15-23 at 11:[address] Pitt ) [facility] [NON-STAFF] - 1 Week Patient Instructions/Handouts: Depression (DC), Abuse of Alcohol (DC) Activity/Diet/Wound Care/Special Instructions: [facility] Discharge Info Avoid the use of street drugs and alcohol. Take all medications as prescribed. When you are in need of refills on your medications, please contact your outpatient medical provider and/or outpatient psychiatrist. Please go to your scheduled outpatient appointments for aftercare treatment. If symptoms return or become worse, call the crisis line at or and/or visit the nearest emergency room for assistance. National Suicide and Crisis Lifeline - call or text 409. Discharge/Stand Alone Forms: AA Meetings [place] Discharge Disposition: HOME SELF-CARE
== END 2023-10-11 13:33 | disposition home or self-care (01) | DRG 751 ==
LOC: 3MHU 03:33
PROVIDERS: ADMIT Psychiatry & Neurology Psychiatry; ATTEND Psychiatry & Neurology Psychiatry
DX: F33.2 Major depressive disorder, recurrent severe without psychotic features (principal); F12.10 Cannabis abuse, uncomplicated; F17.210 Nicotine dependence, cigarettes, uncomplicated; F34.1 Dysthymic disorder; F41.9 Anxiety disorder, unspecified; G25.81 Restless legs syndrome; F98.8 Other specified behavioral and emotional disorders with onset usually occurring in childhood and adolescence; F10.231 Alcohol dependence with withdrawal delirium; K21.9 Gastro-esophageal reflux disease without esophagitis; F51.04 Psychophysiologic insomnia; G43.909 Migraine, unspecified, not intractable, without status migrainosus; R29.6 Repeated falls; I11.9 Hypertensive heart disease without heart failure; R45.851 Suicidal ideations; S00.11XA Contusion of right eyelid and periocular area, initial encounter; W19.XXXA Unspecified fall, initial encounter; Z56.0 Unemployment, unspecified; Z60.2 Problems related to living alone; Z88.2 Allergy status to sulfonamides; Z71.41 Alcohol abuse counseling and surveillance of alcoholic; Z79.899 Other long term (current) drug therapy
CPT/HCPCS: 80061; 80306; 81001; 83036; 84443

== ENCOUNTER 2023-11-08 13:49 | Emergency (ER) | payer OTHER ==
[2023-11-08] MEDS ORDERED: ONDANSETRON 4 MG/2 ML VIAL ONE ×2 (18:02→21:32)
[2023-11-08] MEDS ORDERED: LORazepam 2 MG/ML INJ ONE ×2 (19:49→21:34)
[2023-11-08] MEDS ORDERED: ONDANSETRON 4 MG ODT STARTER PACK 2 TAB BTL ONE (21:34)
[2023-11-08] MEDS ORDERED: LORazepam 1 MG TAB ONE (21:35)
[2023-11-08] MEDS ORDERED: METOPROLOL SUCCINATE (ER) 50 MG TAB.ER.24H PO ONE (21:37)
[2023-11-08] MEDS ORDERED: SODIUM CHLORIDE 0.9% 1,000 ML BAG ONE (23:59)
== END 2023-11-08 23:00 | disposition home or self-care (01) ==
LOC: EC 13:49
DX: F10.239 Alcohol dependence with withdrawal, unspecified (principal)
CPT/HCPCS: 80053; 80320; 82150; 83690; 83735; 85025; 96374; 96375; 99284